=== PATIENT | female | born 1950 | race Caucasian/White ===

== ENCOUNTER → 2020-03-15 13:15 | Outpatient (BNVA) | payer MEDICARE, SELFPAY | PROVIDERS: PCP Internal Medicine Endocrinology, Diabetes & Metabolism; Visit Provider Urology | DX: N31.9 Neuromuscular dysfunction of bladder, unspecified (principal) | CPT/HCPCS: 81002; 99212 ==

== ENCOUNTER → 2020-11-02 10:04 | Outpatient (BNVA) | payer MEDICARE, SELFPAY | PROVIDERS: PCP Internal Medicine Endocrinology, Diabetes & Metabolism; Visit Provider Urology | DX: N30.10 Interstitial cystitis (chronic) without hematuria (principal); N39.0 Urinary tract infection, site not specified; N31.9 Neuromuscular dysfunction of bladder, unspecified | CPT/HCPCS: 51798; 99212 ==

== ENCOUNTER 2021-02-02 12:46 | Outpatient (REF) | payer MEDICARE, BC, SELFPAY | END 2021-02-02 12:47 | disposition home or self-care (01) | LOC: HO.LAB 12:46 | PROVIDERS: PCP Internal Medicine Endocrinology, Diabetes & Metabolism | DX: N30.10 Interstitial cystitis (chronic) without hematuria (principal) | CPT/HCPCS: 51700; 87086; 87088; 87186; 99212 ==

== ENCOUNTER → 2021-02-03 14:57 | Outpatient (BNVA) | payer MEDICARE, BC, SELFPAY | PROVIDERS: PCP Internal Medicine Endocrinology, Diabetes & Metabolism | DX: N30.10 Interstitial cystitis (chronic) without hematuria (principal) | CPT/HCPCS: 51700 ==

== ENCOUNTER → 2021-02-07 14:43 | Outpatient (BNVA) | payer MEDICARE, BC, SELFPAY | PROVIDERS: PCP Internal Medicine Endocrinology, Diabetes & Metabolism | DX: N30.10 Interstitial cystitis (chronic) without hematuria (principal) | CPT/HCPCS: 51700 ==

== ENCOUNTER → 2021-02-08 15:11 | Outpatient (BNVA) | payer MEDICARE, BC, SELFPAY | PROVIDERS: PCP Internal Medicine Endocrinology, Diabetes & Metabolism | DX: N30.10 Interstitial cystitis (chronic) without hematuria (principal) | CPT/HCPCS: 51700 ==

== ENCOUNTER 2021-02-09 14:57 | Outpatient (REF) | payer MEDICARE, BC, SELFPAY | END 2021-02-09 14:58 | disposition home or self-care (01) | LOC: HO.LNP 14:57 | PROVIDERS: PCP Internal Medicine Endocrinology, Diabetes & Metabolism | DX: N30.10 Interstitial cystitis (chronic) without hematuria (principal) | CPT/HCPCS: 51700; 87086; 87088; 87186 ==

== ENCOUNTER → 2021-02-15 11:44 | Outpatient (BNVA) | payer MEDICARE, BC, SELFPAY | PROVIDERS: PCP Internal Medicine Endocrinology, Diabetes & Metabolism; Visit Provider Urology | DX: N30.10 Interstitial cystitis (chronic) without hematuria (principal) | CPT/HCPCS: 51700 ==

== ENCOUNTER → 2021-02-22 11:33 | Outpatient (BNVA) | payer MEDICARE, BC, SELFPAY | PROVIDERS: PCP Internal Medicine Endocrinology, Diabetes & Metabolism; Visit Provider Urology | DX: N30.10 Interstitial cystitis (chronic) without hematuria (principal) | CPT/HCPCS: 51700 ==

== ENCOUNTER → 2021-03-01 11:17 | Outpatient (BNVA) | payer MEDICARE, BC, SELFPAY | PROVIDERS: Visit Provider Urology | DX: N30.10 Interstitial cystitis (chronic) without hematuria (principal) | CPT/HCPCS: 51700 ==

== ENCOUNTER 2021-03-04 09:52 | Outpatient (REF) | payer MEDICARE, BC, SELFPAY ==
[2021-03-04 10:59] LABS: Appearance Urine CLEAR; Color Urine COLORLESS; Glucose Urine UA NEG (NEG); Leukocyte Esterase Urine 1+ (NEG); Nitrite Urine NEG (NEG); Specific Gravity - Urine <= 1.005 (1.005-1.025); Urine Blood NEG (NEG); Urine Ketones NEG (NEG); Urine Protein NEG (NEG-TRACE)
[2021-03-04 11:26] LABS: RBC Urine 0 /HPF (0)
== END 2021-03-04 09:53 | disposition home or self-care (01) ==
LOC: HO.LAB 09:52
PROVIDERS: PCP Internal Medicine Endocrinology, Diabetes & Metabolism
DX: N39.0 Urinary tract infection, site not specified (principal)
CPT/HCPCS: 81001; 87086

== ENCOUNTER → 2021-03-08 11:49 | Outpatient (BNVA) | payer MEDICARE, BC, SELFPAY | PROVIDERS: PCP Internal Medicine Endocrinology, Diabetes & Metabolism; Visit Provider Urology | DX: N30.10 Interstitial cystitis (chronic) without hematuria (principal) | CPT/HCPCS: 51700 ==

== ENCOUNTER → 2021-03-15 11:32 | Outpatient (BNVA) | payer MEDICARE, BC, SELFPAY | PROVIDERS: PCP Internal Medicine Endocrinology, Diabetes & Metabolism; Visit Provider Urology | DX: N39.0 Urinary tract infection, site not specified (principal) | CPT/HCPCS: 51700 ==

== ENCOUNTER → 2021-06-20 11:37 | Outpatient (BNVA) | payer MEDICARE, BC, SELFPAY | PROVIDERS: PCP Internal Medicine Endocrinology, Diabetes & Metabolism; Visit Provider Urology | DX: Z13.89 Encounter for screening for other disorder (principal) | CPT/HCPCS: 99212 ==

== ENCOUNTER 2022-01-02 11:14 | Outpatient (AMB) | payer MEDICARE, BC, SELFPAY ==
--- NOTE | 2022-01-01 15:08 | MHC.OFFVIS ---
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 She is a patient of Dr Kay. She is seen for the following urologic conditions - recurring UTI - interstitial cystitis diagnosis with alpha 1 antitrypsin disease Background of lupus with chronic CellCept therapy Continues with topical estrogen, cranberry extract and methenamine with vitamin-C Would like to continue with low-dose Augmentin suppression Last UTI 01/24 Augmentin Urinary Tract Infection: They present for followup evaluation for, recurrent UTI's. The first infection began Ongoing for many years. Symptoms have included dyuria No urgency No frequency No urinary incontinence No fever No chills No nausea No vomiting No night sweats No hematuria No flank pain No Investigations - 02/23 Microgen - positive with UA negative Therapy has included symptomatic use of antibiotics Topical estrogen Cranberry capsules PFSH Medical History Complicated UTI (urinary tract infection) Lupus Urethral pain Surgical History History of surgery Review of Systems Const Denies chills and Denies fever(s) Card Reports no additional complaints and Denies syncope Resp Denies cough GI Denies abdominal pain and Denies heartburn Reports as per HPI and Denies change in libido Neuro Denies syncope Psych Denies change in libido Endo Denies change in libido Physical Exam Const General: cooperative, healthy appearing, comfortable and no acute distress Orientation/consciousness: patient oriented x3 HEENT Face and sinus: Yes normal facial exam Mouth: moist mucous membranes Neck Neck: Yes normal visual inspection, Yes full ROM and Yes trachea midline Chest Chest palpation & inspection: normal inspection of the chest Resp Effort & Inspection: normal respiratory effort, able to speak in complete sentences and no respiratory distress GI Inspection: Yes normal to inspection Back/Spine/Pelvis Cervical Spine: normal cervical lordosis Thoracic/Lumbar Spine: thoracic and lumbar spine normal to inspection Skin General skin exam: no rashes or lesions noted Neuro General: patient oriented x3, gait normal, tone normal and moves all extremities Extrem General: Yes normal to inspection and Yes capillary refill normal Results AMB Urinalysis, Automated UA Leukoctes 0 Chao/uL Last Edit by Jane Gallo [facility] on 01/02/22 11:50 UA Nitrite Negative Last Edit by Jane Gallo A on 01/02/22 11:50 UA Urobilinogen 0.2 mg/dL Last Edit by Jane Gallo A on 01/02/22 11:50 UA Protein 15 mg/dL Last Edit by Jane Gallo A on 01/02/22 11:50 UA pH 6.0 Last Edit by Jane Gallo [facility] on 01/02/22 11:50 UA Blood 0 Shaun/uL Last Edit by Jane Gallo [facility] on 01/02/22 11:50 UA Specific [place] 1.015 Last Edit by Jane Gallo [facility] on 01/02/22 11:50 UA Ketone Negative Last Edit by Jane Gallo [facility] on 01/02/22 11:50 UA Bilirubin 0 mg/dL Last Edit by Jane Gallo [facility] on 01/02/22 11:50 UA Glucose 0 mg/dL Last Edit by Jane Gallo [facility] on 01/02/22 11:50 Results Reviewed Results Reviewed: Laboratory Last Values Urine pH (Auto) 6.0 01/02/22 11:16 Specific [place] (Auto) 1.015 01/02/22 11:16 Urine Protein (Auto) 15 mg/dL 01/02/22 11:16 Glucose (UA)(Auto) 0 mg/dL 01/02/22 11:16 Urine Ketones (Auto) Negative 01/02/22 11:16 Urine Blood (Auto) 0 Shaun/uL 01/02/22 11:16 Urine Nitrite (Auto) Negative 01/02/22 11:16 Urine Bilirubin (Auto) 0 mg/dL 01/02/22 11:16 Urine Urobilinogen (Auto) 0.2 mg/dL 01/02/22 11:16 Leukocyte Esterase (Auto) 0 Chao/uL 01/02/22 11:16 Assessment & Plan Assessment & Plan (1) Interstitial cystitis: Code(s): N30.10 - Interstitial cystitis (chronic) without hematuria (2) Recurrent UTI (urinary tract infection): Code(s): N39.0 - Urinary tract infection, site not specified (3) Neurogenic urinary bladder disorder: Code(s): N31.9 - Neuromuscular dysfunction of bladder, unspecified Plan antifungal Orders: Orders AMB Urinalysis Automated 01/02/22 Z13.9 - Encounter for screening, unspecified Medications: New fluconazole 150 mg PO Q3D 2 tabs 0RF 2 doses N39.0 - Urinary tract infection, site not specified, B49 - Unspecified mycosis Refilled amoxicillin-pot clavulanate 500-125 mg (Augmentin) 1 tab PO DAILY 90 tabs 1RF 90 days Patient Instructions: Imaging studies, laboratory and physical exam results were discussed and reviewed in detail. No major barriers to patient understanding were identified. An opportunity to ask questions regarding the treatment plan was provided. All questions were answered. The patient expressed understanding and agreement with the above treatment plan. The patient is aware they should contact our office by phone for worsening of their current condition or the appearance of new urologic symptoms. Compliance is encouraged with any medications and followup testing that is ordered. It is a privilege to participate in the urologic care of your patient. If you have any questions or concerns regarding treatment for the above conditions, or other urologic issues, please do not hesitate to contact me. The office telephone contact is [phone]. This note is constructed using voice recognition software. While every effort has been made to ensure accuracy uniform maker errors may have been included. Yours sincerely, Dr Denilson Hernandez MD, [facility] - Urology Providers of Expert, Compassionate Care for the Genitourinary System Coding Level of Care Code Est Pt Level 3 (29921) Diagnoses Interstitial cystitis N30.10 Recurrent UTI (urinary tract infection) N39.0 Neurogenic urinary bladder disorder N31.9
== END 2022-01-02 12:02 | disposition home or self-care (01) ==
LOC: HO.HUSH 11:14
PROVIDERS: PCP Internal Medicine Endocrinology, Diabetes & Metabolism; Visit Provider Urology
DX: N30.10 Interstitial cystitis (chronic) without hematuria (principal); N39.0 Urinary tract infection, site not specified; N31.9 Neuromuscular dysfunction of bladder, unspecified
CPT/HCPCS: 99499

== ENCOUNTER → 2022-10-02 15:11 | Outpatient (BNVA) | payer MEDICARE, BC, SELFPAY | PROVIDERS: PCP Internal Medicine Endocrinology, Diabetes & Metabolism; Visit Provider Urology | DX: N30.10 Interstitial cystitis (chronic) without hematuria (principal); N31.9 Neuromuscular dysfunction of bladder, unspecified | CPT/HCPCS: 99212 ==

== ENCOUNTER 2023-08-06 08:51 | Outpatient (AMB) | payer MEDICARE, BC, SELFPAY ==
--- NOTE | 2023-08-06 09:02 | A.OFFVIS_ITS ---
Intake Intake Visit Reasons: PVR/UA Follow Up(Last appt R/S) Intake Note: Patient is Present for Follow Up Urology Medication: Methanamine, Terazosin, Vagifem Antibiotic Allergies: Macrobid, Levaquin, Keflex Blood Thinners: Xarelto (Pt states she is not taking Aspirin) Pharmacy: [facility] PVR: 0 Allergies carisoprodol [Soma] Allergy (Unknown, Verified 08/06/23 09:03) unk cephalexin [Keflex] Allergy (Unknown, Verified 08/06/23 09:03) Unknown levofloxacin [Levaquin] Allergy (Unknown, Verified 08/06/23 09:03) Unknown nitrofurantoin [Macrobid] Allergy (Unknown, Verified 08/06/23 09:03) Unknown Ansaid Allergy (Unknown, Uncoded 08/06/23 09:03) Unknown HPI HPI Comments History of Present Illness Details Shakila is a very pleasant female. She is a patient of Dr Kay. She is seen for the following urologic conditions - recurring UTI - interstitial cystitis PVR today 0 UA clean Diagnosis with alpha 1 antitrypsin disease Background of lupus with chronic CellCept therapy Continues with - topical estrogen - cranberry extract - methenamine with vitamin-C - low-dose Augmentin suppression Shakila remains stable. Knows her interstitial cystitis triggers. Immunology has working to reduce her CellCept immunosuppression. Refill medications Six-month follow-up PVR Incomplete bladder emptying Current medication terazosin 1 mg Urinary Tract Infection: In setting of immunosuppression They present for followup evaluation for, recurrent UTI's. The first infection began Ongoing for many years. Investigations - 02/23 Microgen - positive with UA negative Therapy has included symptomatic use of antibiotics - Topical estrogen - Cranberry capsules - vitamin-C with methenamine [facility] Medical History Lupus Complicated UTI (urinary tract infection) Urethral pain Surgical History History of surgery Review of Systems Const Denies chills and Denies fever(s) Card Reports no additional complaints and Denies syncope Resp Denies cough GI Denies abdominal pain and Denies heartburn Reports as per HPI and Denies change in libido Neuro Denies syncope Psych Denies change in libido Endo Denies change in libido Physical Exam Const General: cooperative, healthy appearing, comfortable and no acute distress Orientation/consciousness: patient oriented x3 HEENT Face and sinus: Yes normal facial exam Mouth: moist mucous membranes Neck Neck: Yes normal visual inspection, Yes full ROM and Yes trachea midline Chest Chest palpation & inspection: normal inspection of the chest Resp Effort & Inspection: normal respiratory effort, able to speak in complete sentences and no respiratory distress GI Inspection: Yes normal to inspection Back/Spine/Pelvis Cervical Spine: normal cervical lordosis Thoracic/Lumbar Spine: thoracic and lumbar spine normal to inspection Skin General skin exam: no rashes or lesions noted Neuro General: patient oriented x3, gait normal, tone normal and moves all extremities Extrem General: Yes normal to inspection and Yes capillary refill normal Office Procedures Post Void Residual Post Residual Void Post Void Residual (PVR): 0 07988-Yocq Void Residual by ultrasound Results AMB Urinalysis, Automated UA Leukoctes 15 Chao/uL Last Edit by REA Noel on 08/06/23 09:09 UA Nitrite Negative Last Edit by REA Noel on 08/06/23 09:09 UA Urobilinogen 0.2 mg/dL Last Edit by REA Noel on 08/06/23 09:0 9 UA Protein 0 mg/dL Last Edit by REA Noel on 08/06/23 09:09 UA pH 6.0 Last Edit by REA Noel on 08/06/23 09:09 UA Blood 0 Shaun/uL Last Edit by REA Noel on 08/06/23 09:09 UA Specific [place] 1.005 Last Edit by REA Noel on 08/06/23 09: 09 UA Ketone Negative Last Edit by REA Noel on 08/06/23 09:09 UA Bilirubin 0 mg/dL Last Edit by REA Noel on 08/06/23 09:09 UA Glucose 0 mg/dL Last Edit by REA Noel on 08/06/23 09:09 Assessment & Plan Assessment & Plan (1) Interstitial cystitis: Code(s): N30.10 - Interstitial cystitis (chronic) without hematuria (2) Recurrent UTI (urinary tract infection): Code(s): N39.0 - Urinary tract infection, site not specified (3) Neurogenic urinary bladder disorder: Code(s): N31.9 - Neuromuscular dysfunction of bladder, unspecified Plan Six-month follow-up Orders: Orders AMB Urinalysis Automated Today N39.0 - Urinary tract infection, site not specified, Z13.9 - Encounter for screening, unspecified AMB Post Void Residual by ultrasound Today N31.9 - Neuromuscular dysfunction of bladder, unspecified Medications: Changed From amoxicillin-pot clavulanate 500-125 mg (Augmentin) 1 tab PO DAILY 60 days 60 tabs 0RF N39.0 - Urinary tract infection, site not specified To amoxicillin-pot clavulanate 500-125 mg (Augmentin) 1 tab PO DAILY 90 tabs 1RF 90 days N39.0 - Urinary tract infection, site not specified Refilled conjugated estrogens (Premarin) pea size amount to urethra 3 times a week 30 grams 1RF methenamine hippurate 1 g PO BID 180 tabs 3RF 90 days terazosin 1 mg PO BEDTIME 90 caps 1RF 90 days N31.9 - Neuromuscular dysfunction of bladder, unspecified ascorbic acid (vitamin C) 1 g PO DAILY 90 tabs 1RF 90 days N39.0 - Urinary tract infection, site not specified Discontinued estradiol 0.01%(0.1mg/gram) (Estrace) Discontinued Reason: Patient Completed Course pea sized amount to urethra vaginal daily 42.5 grams 0RF recurrent uti 30 days estradiol (Vagifem) Discontinued Reason: Insurance Denied 10 mcg vaginal 2XW 8 tabs 5RF 28 days N39.0 - Urinary tract infection, site not specified Patient Instructions: Imaging studies, laboratory and physical exam results were discussed and reviewed in detail. No major barriers to patient understanding were identified. An opportunity to ask questions regarding the treatment plan was provided. All questions were answered. The patient expressed understanding and agreement with the above treatment plan. The patient is aware they should contact our office by phone for worsening of their current condition or the appearance of new urologic symptoms. Compliance is encouraged with any medications and followup testing that is ordered. It is a privilege to participate in the urologic care of your patient. If you have any questions or concerns regarding treatment for the above conditions, or other urologic issues, please do not hesitate to contact me. The office telephone contact is [phone]. This note is constructed using voice recognition software. While every effort has been made to ensure accuracy utilization review coordinator errors may have been included. Yours sincerely, Dr Denilson Hernandez MD, [facility] - Urology Providers of Expert, Compassionate Care for the Genitourinary System Coding Level of Care Code Est Pt Level 4 (12487) Diagnoses Interstitial cystitis N30.10 Recurrent UTI (urinary tract infection) N39.0 Neurogenic urinary bladder disorder N31.9 CPT Codes Post Residual Void - PVR CPT Code: 82433-Axin Void Residual by ultrasound ([id number])
== END 2023-08-06 09:22 | disposition home or self-care (01) ==
PROVIDERS: PCP Internal Medicine Endocrinology, Diabetes & Metabolism; Visit Provider Urology
DX: N30.10 Interstitial cystitis (chronic) without hematuria (principal); N39.0 Urinary tract infection, site not specified; N31.9 Neuromuscular dysfunction of bladder, unspecified; Z13.9 Encounter for screening, unspecified
CPT/HCPCS: 99213

== ENCOUNTER → 2023-08-06 08:51 | Outpatient (BNVA) | payer MEDICARE, BC, SELFPAY | PROVIDERS: PCP Internal Medicine Endocrinology, Diabetes & Metabolism; Visit Provider Urology | DX: N30.10 Interstitial cystitis (chronic) without hematuria (principal); N39.0 Urinary tract infection, site not specified; N31.9 Neuromuscular dysfunction of bladder, unspecified | CPT/HCPCS: 51798; 81003; 99212 ==

== ENCOUNTER 2024-02-04 11:22 | Outpatient (AMB) | payer MEDICARE, OTHER, SELFPAY ==
--- NOTE | 2024-02-04 11:26 | A.OFFVIS_ITS ---
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 She is a patient of Dr Lorenzo Bingham. She is seen for the following urologic conditions - recurring UTI - interstitial cystitis PVR today 0 UA clean Surprisingly stable on current combination Hesitant to stop low-dose Augmentin Diagnosis with alpha 1 antitrypsin disease Background of lupus with chronic CellCept therapy Continues with - topical estrogen - cranberry extract - methenamine with vitamin-C - low-dose Augmentin suppression Shakila remains stable. Knows her interstitial cystitis triggers. Immunology has working to reduce her CellCept immunosuppression. Refill medications Six-month follow-up PVR Incomplete bladder emptying Current medication terazosin 1 mg Urinary Tract Infection: In setting of immunosuppression They present for followup evaluation for, recurrent UTI's. The first infection began Ongoing for many years. Investigations - 02/23 Microgen - positive with UA negative Therapy has included symptomatic use of antibiotics - Topical estrogen - Cranberry capsules - vitamin-C with methenamine PFSH Medical History Lupus Complicated UTI (urinary tract infection) Urethral pain Surgical History History of surgery Review of Systems Const Denies chills and Denies fever(s) Card Reports no additional complaints and Denies syncope Resp Denies cough GI Denies abdominal pain and Denies heartburn Reports as per HPI and Denies change in libido Neuro Denies syncope Psych Denies change in libido Endo Denies change in libido Physical Exam Const General: cooperative, healthy appearing, comfortable and no acute distress Orientation/consciousness: patient oriented x3 HEENT Face and sinus: Yes normal facial exam Mouth: moist mucous membranes Neck Neck: Yes normal visual inspection, Yes full ROM and Yes trachea midline Chest Chest palpation & inspection: normal inspection of the chest Resp Effort & Inspection: normal respiratory effort, able to speak in complete sentences and no respiratory distress GI Inspection: Yes normal to inspection Back/Spine/Pelvis Cervical Spine: normal cervical lordosis Thoracic/Lumbar Spine: thoracic and lumbar spine normal to inspection Skin General skin exam: no rashes or lesions noted Neuro General: patient oriented x3, gait normal, tone normal and moves all extremities Extrem General: Yes normal to inspection and Yes capillary refill normal Office Procedures Post Void Residual Post Residual Void Post Void Residual (PVR): 23 [id number]-Ytlc Void Residual by ultrasound Results AMB Urinalysis, Automated UA Leukoctes 0 Chao/uL Last Edit by REA Noel on 02/04/24 11:41 UA Nitrite Negative Last Edit by REA Noel on 02/04/24 11:41 UA Urobilinogen 0.2 mg/dL Last Edit by REA Noel on 02/04/24 11:4 1 UA Protein 0 mg/dL Last Edit by REA Noel on 02/04/24 11:41 UA pH 6.0 Last Edit by REA Noel on 02/04/24 11:41 UA Blood 0 Shaun/uL Last Edit by REA Noel on 02/04/24 11:41 UA Specific [place] 1.005 Last Edit by REA Noel on 02/04/24 11: 41 UA Ketone Negative Last Edit by REA Noel on 02/04/24 11:41 UA Bilirubin 0 mg/dL Last Edit by REA Noel on 02/04/24 11:41 UA Glucose 0 mg/dL Last Edit by REA Noel on 02/04/24 11:41 Results Reviewed Results Reviewed: Laboratory Last Values Urine pH (Auto) 6.0 02/04/24 11:34 Specific [place] (Auto) 1.005 02/04/24 11:34 Urine Protein (Auto) 0 mg/dL 02/04/24 11:34 Glucose (UA)(Auto) 0 mg/dL 02/04/24 11:34 Urine Ketones (Auto) Negative 02/04/24 11:34 Urine Blood (Auto) 0 Shaun/uL 02/04/24 11:34 Urine Nitrite (Auto) Negative 02/04/24 11:34 Urine Bilirubin (Auto) 0 mg/dL 02/04/24 11:34 Urine Urobilinogen (Auto) 0.2 mg/dL 02/04/24 11:34 Leukocyte Esterase (Auto) 0 Chao/uL 02/04/24 11:34 Assessment & Plan Assessment & Plan (1) Interstitial cystitis: Code(s): N30.10 - Interstitial cystitis (chronic) without hematuria Category: Medical (2) Recurrent UTI (urinary tract infection): Code(s): N39.0 - Urinary tract infection, site not specified Category: Medical Plan Six-month follow-up Orders: Orders AMB Post Void Residual by ultrasound Today N31.9 - Neuromuscular dysfunction of bladder, unspecified AMB Urinalysis Automated Today Z13.9 - Encounter for screening, unspecified Medications: Discontinued sulfamethoxazole-trimethoprim 800-160 mg (Bactrim DS) Discontinued Reason: Patient Completed Course 1 tab PO BID 5 days 10 tabs 0RF amoxicillin-pot clavulanate 875-125 mg (Augmentin) Discontinued Reason: Duplicate 1 tab PO BID 14 days 28 tabs 0RF uti N39.0 - Urinary tract infection, site not specified Patient Instructions: Imaging studies, laboratory and physical exam results were discussed and r eviewed in detail. No major barriers to patient understanding were identified. An opportunity to ask questions regarding the treatment plan was provided. All questions were answered. The patient expressed understanding and agreement with the above treatment plan. The patient is aware they should contact our office by phone for worsening of their current condition or the appearance of new urologic symptoms. Compliance is encouraged with any medications and followup testing that is ordered. It is a privilege to participate in the urologic care of your patient. If you have any questions or concerns regarding treatment for the above conditions, or other urologic issues, please do not hesitate to contact me. The office telephone contact is [phone]. This note is constructed using voice recognition software. While every effort has been made to ensure accuracy transition advisor errors may have been included. Yours sincerely, Dr Denilson Hernandez MD, [facility] - Urology Providers of Expert, Compassionate Care for the Genitourinary System Coding Level of Care Code Est Pt Level 3 (35609) Diagnoses Interstitial cystitis N30.10 Recurrent UTI (urinary tract infection) N39.0 CPT Codes Post Residual Void - PVR CPT Code: 47015-Lqeu Void Residual by ultrasound ([id number])
== END 2024-02-04 12:03 | disposition home or self-care (01) ==
PROVIDERS: PCP Internal Medicine Endocrinology, Diabetes & Metabolism; Visit Provider Urology
DX: N30.10 Interstitial cystitis (chronic) without hematuria (principal); N39.0 Urinary tract infection, site not specified; Z13.9 Encounter for screening, unspecified
CPT/HCPCS: 99213

== ENCOUNTER → 2024-02-04 11:22 | Outpatient (BNVA) | payer MEDICARE, OTHER, SELFPAY | PROVIDERS: PCP Internal Medicine Endocrinology, Diabetes & Metabolism; Visit Provider Urology | DX: N30.10 Interstitial cystitis (chronic) without hematuria (principal) | CPT/HCPCS: 51798; 81003; 99212 ==

== ENCOUNTER 2024-08-04 11:12 | Outpatient (AMB) | payer OTHER, SELFPAY ==
--- NOTE | 2024-08-04 11:17 | A.OFFVIS_ITS ---
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 She is a patient of Dr Lorenzo Bingham. She is seen for the following urologic conditions - recurring UTI - interstitial cystitis PVR today 0 UA clean Surprisingly stable on current combination Hesitant to stop low-dose Augmentin Diagnosis with alpha 1 antitrypsin disease Background of lupus with chronic CellCept therapy Continues with - topical estrogen - cranberry extract - methenamine with vitamin-C - low-dose Augmentin suppression Shakila remains stable. Knows her interstitial cystitis triggers. Immunology has working to reduce her CellCept immunosuppression. Refill medications Six-month follow-up PVR Incomplete bladder emptying Current medication terazosin 1 mg Urinary Tract Infection: In setting of immunosuppression They present for followup evaluation for, recurrent UTI's. The first infection began Ongoing for many years. Investigations - 02/23 Microgen - positive with UA negative Therapy has included symptomatic use of antibiotics - Topical estrogen - Cranberry capsules - vitamin-C with methenamine [facility] Medical History Lupus Complicated UTI (urinary tract infection) Urethral pain Surgical History History of surgery Office Procedures Post Void Residual Post Residual Void Post Void Residual (PVR): 0 02274-Zinc Void Residual by ultrasound Coding CPT Codes Post Residual Void - PVR CPT Code: 40894-Hvrf Void Residual by ultrasound ([id number])
--- OUTSIDE RECORDS SUMMARY | 2024-08-04 13:30 | XMS_ITS | Clinical Summary ---
Author Organization [facility] Address [address] [place] [address] Care Team Providers Care Trust Accounts Supervisor Name Role Phone Mariel Yepez MD Primary Care Provid er Allergies Active Allergy Reactions Criticality Noted Date Comments Adhesives/Tape Unknown/Patient and Family Unable to Define Medium 02/14/2023 Aloe Unknown/Patient and Family Unable to Define Medium 02/14/2023 Benralizumab Unknown/Patient and Family Unable to Define Medium 02/14/2023 Carisoprodol Unknown/Patient and Family Unable to Define Medium 02/14/2023 Levofloxacin Unknown/Patient and Family Unable to Define Medium 02/14/2023 Nitrofurantoin Macrocrystal Unknown/Maureen ent and Family Unable to Define Medium 02/14/2023 Nsaids Unknown/Patient and Family Unable to Define Medium 02/14/2023 Tobramycin Unknown/Patient and Family Unable to Define Medium 02/14/2023 Medications Medication Sig Dispensed Refills Start Date End Date Status fluticasone-umeclidi nium-vilanterol (TRELEGY ELLIPTA) 200-62.5-25 mcg/act inhaler Inhale 1 puff daily. Acti ve dupilumab (DUPIXENT) 300 MG/2ML prefilled syringe Inject 300 mg under the skin every 14 days (2 weeks). Active amoxicillin-clavulan ate (AUGMENTIN) 500-125 MG per tablet Take 1 tablet by mouth daily at the same time. Active ascorbic acid (VITAMIN C) 500 MG tablet Take 500 mg by mouth daily. Active mycophenolate (CELLCEPT) 500 MG tablet Take 1,000 mg by mouth daily. Active lactobacillus (FLORANEX) tablet Take 1 tablet by mouth daily. Active mycophenolate (CELLCEPT) 500 MG tablet Take 500 mg by mouth nightly. Active sodium chloride (Maldonado 128) 5 % ophthalmic ointment Administer 1 drop to both eyes 2 times a day. Active gabapentin (NEURONTIN) 300 MG capsule Take 600 mg by mouth daily. Active ferrous sulfate 325 (65 FE) MG tablet Take 325 mg by mouth daily. Active diltiazem (CARDIZEM CD) 240 MG 24 hr capsule Take 240 mg by mouth daily. Active Psyllium Husk 100 % Powder Take 3 g by mouth 2 times a day. Active aspirin enteric coated (ECOTRIN LOW STRENGTH) 81 MG EC tablet Take 81 mg by mouth daily. Active gabapentin (NEURONTIN) 300 MG capsule Take 300 mg by mouth daily. Active rivaroxaban (XARELTO) 20 MG tablet Take 20 mg by mouth every evening with dinner. Active OMEprazole (PriLOSEC) 20 MG capsule Take 20 mg by mouth every morning before breakfast. Active levothyroxine (Synthroid) 175 MCG tablet Take 175 mcg by mouth daily on an empty stomach. Active metoCLOPRAMIDE (REGLAN) 10 MG tablet Take 10 mg by mouth 4 (four) times a day before meals and nightly. Active pancrelipase (CREON) [address] Particles capsule Take 36,000 units of lipase by mouth 3 (three) times a day with meals. Active acetaminophen (TYLENOL) 500 MG tablet Take 1,000 mg by mouth 4 times daily (every 6 hours) as needed. Active montelukast (SINGULAIR) 10 MG tablet Take 10 mg by mouth nightly. Active senna (SENOKOT) 8.6 MG Tab tablet Take 2 tablets by mouth 2 (two) times a day. Active methenamine hippurate (HIPREX) 1 g tablet Take 1 g by mouth 2 (two) times a day with meals. Active terazosin (HYTRIN) 1 MG capsule Take 1 mg by mouth nightly. Active amitriptyline (ELAVIL) 10 MG tablet Take 40 mg by mouth nightly. Active simvastatin (ZOCOR) 10 MG tablet Take 10 mg by mouth nightly. Active oxyCODONE (ROXICODONE) 10 mg immediate release tablet Take 10 mg by mouth every 4 (four) hours as needed. Active diclofenac (VOLTAREN) 1 % gel Apply 2 g topically 4 (four) times a day. Active albuterol (Proventil HFA) 108 (90 Base) MCG/ACT inhaler Inhale 2 puffs every 4 (four) hours as needed. Active Social History Tobacco Use Types Packs/Day Years Used Date Smoking Tobacco: Never Assessed OASIS D0700: Social Isolation Answer Da te Recorded Frequency of experiencing loneliness or isolatio n Never 03/22/2023 OASIS A1250: Transportation Answer Date Recorded Lack of Transportation (Medical) No 03/22/2023 Lack of Transportation (Non-Medical) No 03/22/2023 Patient Unable or Declines to Respond No 03/22/2023 Sex and Gender Information Value Date Recorded Sex Assigned at Not on file Gender Identity Not on file Sexual Orientation Not on file Last Filed Vital Signs Vital Sign Reading Time Taken Comments Blood Pressure 122/70 03/20/2023 10:42 AM EST Pulse 66 03/20/2023 10:42 AM EST Temperature 36.9 ??C (98.4 ??F) 03/20/2023 10:[address] Respiratory Rate 18 03/20/2023 10:42 AM EST Oxygen Saturation 97% 03/20/2023 10:42 AM EST Inhaled Oxygen Concentration - - Weight - - Height - - Body Mass Index - - Plan of Treatment Health Maintenance Due Date Last Done Comments Hepatitis C Virus Screening 1949 COVID-19 Vaccine (#1) 1954 DTaP/Tdap/Td Vaccines (1 - Tdap) 1968 Pneumococcal Vaccines 50+ (1 of 2 - PCV) 1968 Zoster (Shingles) Vaccine (1 of 2) 1968 Mammogram 1989 Colonoscopy 1994 DXA Bone Density (Females,Ages 65 and older) 2014 Influenza Vaccine 12/05/2023 01/13/2020, 02/04/2017, 02/18/2014 RSV Vaccine 60 years and older and Patients (1 - 1-dose 75+ series) 2024 Hepatitis B Vaccines Aged Out No long er eligible based on patient's age to complete this topic Care Teams Trust Accounts Supervisor Relationship Specialty Start Date End Date Mariel Yepez MD [address] [place] [address] [place] [address] PCP - General Endocrinology 02/12/23
--- OUTSIDE RECORDS SUMMARY | 2024-08-04 13:30 | XMS_ITS | Clinical Summary ---
Author Organization [address] [facility] Address [address] [place] [address] Phone Care Team Providers Care Electro Winning Operator Name Role Phone Mariel Mcgarry MD Primary Care Provid er Medications metoclopramide (REGLAN) 10 mg tabletIndications :GERD (gastroesophageal reflux disease) Take 1 tablet (10 mg total) by mouth 4 (four) times a day. Take with meals and at bedtime 120 each 11 4 03/27/20 25 Active docusate sodium (COLACE) 100 mg capsuleIndication s:Constipation, unspecified constipation type TAKE 2 CAPSULES BY MOUTH DAILY 60 capsule 3 5 Active Social History Tobacco Use Types Packs/Day Years Used Date Smoking Tobacco: Never Assessed Comments Unknown Sex and Gender Information Value Date Recorded Sex Assigned at Not on file Legal Sex Female 1:18 AM EST Gender Identity Not on file Sexual Orientation Not on file Plan of Treatment Upcoming Encounters Date Type Department Care Team ([facility] Contact Info) Description 09/01/2024 9:00 AM EDT Office Visit Gastroenterology - [address] [place] [phone] Aaron Lizama MD [address] [address] Health Maintenance Due Date Last Done Comments DTaP,Tdap,and Td Vaccines (1 - Tdap) 1968 Pneumococcal Vaccine: 50+ Ye ars (1 of 1 - PCV) 1999 Zoster Vaccines (1 of 2) 1999 Colorectal Cancer Screening: Colonoscopy 04/08/2022 Depression Screening 04/08/2022 Falls Risk Assessment 04/08/2022 Hepatitis C Screening 04/08/2022 Medicare Annual Wellness Visit 04/08/2022 Osteoporosis Screening (Bone Density Screening) 04/08/2022 Social Influencers of Health Screening 04/08/2022 COVID-19 Vaccine ( - 2023-2 5 season) 2024 Influenza Vaccine (#1) 2024 RSV Immunization Patients 60 + Years Old (1 - 1-dose 75+ series) 2024 HIB Vaccines Aged Out No longer eligi ble based on patient's age to complete this topic HPV Vaccines Aged Out No longer eligi ble based on patient's age to complete this topic Hepatitis A Vaccines Aged Out No long er eligible based on patient's age to complete this topic Hepatitis B Vaccines Aged Out No long er eligible based on patient's age to complete this topic IPV Vaccines Aged Out No longer eligi ble based on patient's age to complete this topic MMR Vaccines Aged Out No longer eligi ble based on patient's age to complete this topic Meningococcal ACWY Vaccine Aged Out N o longer eligible based on patient's age to complete this topic Meningococcal B Vacine Aged Out No lo nger eligible based on patient's age to complete this topic RSV Immunization Patients Un konrad 20 months Aged Out No longer eligible b ased on patient's age to complete this topic Varicella Vaccines Aged Out No longer eligible based on patient's age to complete [place] [id number] Care Teams Electro Winning Operator Relationship Specialty Start Date End Date Mariel Mcgarry MD [address] [place] [address] [address] [place] [address] PCP - General Endocrinology 07/30/24
--- OUTSIDE RECORDS SUMMARY | 2024-08-04 13:31 | XMS_ITS | Continuity of Care Document ---
Author Organization [facility] [address] [place] [address] Phone [phone] Care Team Providers Care Delivery Associate Name Role Phone Mariel Mcgarry M.D. Care Team Informati on Storage Battery Inspector [phone] Problems Active Problems Provider Date Primary hypothyroidism Mariel leo M.D. Onset: 06/01/2022 Asthma Mariel shultz M.D. Onset: 06/01/2022 History of deep vein thrombosis Mariel Mcgarry M.D. Onset: 06/01/2022 Degeneration of lumbar inter vertebral disc Mariel Mcgarry M.D. Onset: 06/01/2022 Dyslipidemia Mariel shultz M.D. Onset: 06/01/2022 Essential hypertension Mariel leo M.D. Onset: 06/01/2022 Multiple nodules of lung Mariel Sargent M.D. Onset: 06/01/2022 Migraine Mariel shultz M.D. Onset: 06/01/2022 Osteoarthritis Mariel shultz M.D. Onset: 06/01/2022 Neurocognitive disorder Mariel Bingham M.D. Onset: 06/01/2022 Fibromyalgia Mariel shultz M.D. Onset: 06/01/2022 Lxgui-5-fsyqxecvycp deficiency Mariel Mcgarry M.D. Onset: 06/01/2022 Type 2 diabetes mellitus Mariel Sargent M.D. Onset: 06/01/2022 Systemic lupus erythematosus Mariel Vasquez M.D. Onset: 06/01/2022 Cutaneous leukocytoclastic angiitis Valentina Mcgarry M.D. Onset: 06/01/2022 Recurrent urinary tract infection Leonor Mcgarry M.D. Onset: 06/01/2022 Pancreatic insufficiency Mariel Sargent M.D. Onset: 06/01/2022 Gastroesophageal reflux disease Mariel Mcgarry M.D. Onset: 06/01/2022 Obstructive sleep apnea syndrome Vinnie Mcgarry M.D. Onset: 06/01/2022 Gastroparesis syndrome Mariel leo M.D. 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 Onset: 06/01/2022 Immunoglobulin G subclass deficiency Astrid Mcgarry M.D. Onset: 06/01/2022 Paroxysmal atrial fibrillation Mariel Mcgarry M.D. Onset: 06/01/2022 Pure hypercholesterolemia Mariel Potter M.D. Onset: 06/01/2022 Migraine without aura, not refractory Ki flynn Mcgarry M.D. Onset: 06/01/2022 Chronic interstitial cystitis Mariel Garcia M.D. 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 ETOH Use Consumes 2 glasses of wine p er week Tobacco Use Start: Unknown Patient has never smoked Smoking Status Reviewed: 03/06/24 Patient has never sm oked Allergies and adverse reactions Active Allergies Criticality Reaction Severity Comments Date Fasenra Unable to assess criticality 06/01/2022 Levaquin Unable to assess criticality 06/01/2022 Tobramycin Unable to assess criticality 06/01/2022 Keflex Unable to assess criticality 06/01/2022 Macrobid Unable to assess criticality 06/01/2022 Carisoprodol Unable to assess criticality 06/01/2022 NSAIDS Unable to assess criticality 06/01/2022 Medications Active Medications SIG Qnty Indications Order ing Provider Date Levothyroxine Sfyvzm101pus Tablets Take 1 Tablet By Mouth Every Day Except Take 2 Tablets On Sundays 102tabs Mariel Mcgarry M.D. 08/16/2023 Diltiazem HCL QL656oa Caps ER 24HR Take 1 Capsule By Mouth Daily Mariel Mcgarry M.D. 09/12/2022 Citracal Calcium +D3 Ruoeqdgzjuy009-15-907pp -mg-Unit Tablets ER 24HR 1 by mouth twice a day Mariel Mcgarry M.D. Pantoprazole Xkisdz49gq Tablets 1 by mouth every day Unknown Joicaft48ks Tablets 1 by mouth every day Mariel Mcgarry M.D. Multivitamin Adults 50+Adlt 50+ Tablets 1 by mouth every day Mariel Mcgarry M.D. Fish Yma9660wd Capsules 1 by mouth twice a day Mariel Mcgarry M.D. Vitamin C500mg Chewtabs 1 by mouth twice a day Mariel Mcgarry M.D. Gyypwdee134ot/2ML Solution Pen-Inject every 2 weeks Mariel Mcgarry M.D. Aspirin Ec Low Esww13cv Tablets 1 by mouth every day Mariel Mcgarry M.D. Glucosamine Chondroitin 1500 Laletqv3791Kmn Capsules 1 by mouth twice a day Mariel Mcgarry M.D. L-Ujdnwq327er Capsules 1 bid Ki flynn Mcgarry M.D. Pghljnvln303dw Tablets 1 by mouth once a day Mariel Mcgarry M.D. Vitamin I691jlj (1000 Ut) Capsules 2 by mouth every day 100caps Mariel Mcgarry M.D. ProbioticTablets 1 by mouth every day Mariel Mcgarry M.D. Amoxicillin/Clavulanate Pjpbafkzb177-600bh Tablets Take 1 Tablet By Mouth Daily Denilson Hernandez Mycophenolate Kygzgen320dh Tablets Take 2 Tablets By Mouth Twice Daily Unknown [id number] Caps DR Yoselyn Take 1 Capsule By Mouth Four Times Daily With Meals And Snacks Aaron Lizama MD Terazosin HCL1mg Capsules Take 1 Capsule By Mouth AT Bedtime Denilson Hernandez Fltvyusrcrm49mi Tablets take 1 tablet by mouth every day as directed 90tabs Mariel Mcgarry M.D. Montelukast Swhobe21aq Tablets 1 qd Unknown Ddcheeouij913lj Capsules Take 1 in the morning, 2 at night Unknown Amitriptyline LOU17jh Tablets Take 4 tablets daily Unknown Methenamine Qxhfhvouq2uh Tablets Take 1 Tablet By Mouth Twice Daily Denilson Hernandez Trelegy Jxdilfk381-49.5-25mcg/A ct Aerosol 1 puff qd Ignacio Magaña DO Metoclopramide KAR25iy Tablets Take 1 tablet at mealtimes and at bedtime Aaron Lizama MD Vital Signs Date Vital Result Comment 07/09/2024 2:35pm BP Systolic 122 mmHg BP Diastolic 68 mmHg Heart Rate 98 /min Height 65 inches 5'5 Weight 187.25 lb BMI (Body Mass Index) 31.2 kg/m2 Results Test Acquired Date Facility Test Result H/L Range Note TSH Rfx on Abnormal to Free T4 07/09/2024 [facility] TSH Rfx on Abnormal to Free T4 1.210 uIU/mL 0.450-4. 500 Written Authorization 07/09/2024 [facility] Written Authorization See Comment: 1 Alkaline Phosphatase Isoenzymes 07/09/2024 [facility] Alkaline Phosphatase 206 IU/L High 44-121 Liver Fraction: 64 % 18-85 Bone Fraction: 22 % 14-68 Intestinal Frac.: 14 % 0-18 Alkaline Phosphatase Isoenzymes 07/09/2024 [facility] Alkaline Phosphatase 206 IU/L High 44-121 Liver Fraction: 64 % 18-85 Bone Fraction: 22 % 14-68 Intestinal Frac.: 14 % 0-18 Written Authorization 07/09/2024 [facility] Written Authorization See Comment: 2 Glucose Fingerstick 07/09/2024 Inhouse Glucose Fingerstick 112 Hemoglobin A1c 07/09/2024 Inhouse Hemoglobin A1c 5.6 Comp. Metabolic Panel (14) 07/09/2024 [facility] Glucose 92 mg/dL 70-99 BUN 12 mg/dL 8-27 Creatinine 0.54 mg/dL Low 0.57-1.0 0 eGFR 96 mL/min/1. 73 >59 BUN/Creatinine Ratio 22 12-28 Sodium 137 mmol/L 134-144 Potassium 4.6 mmol/L 3.5-5.2 Chloride 101 mmol/L 96-106 Carbon Dioxide, Total 22 mmol/L 20-29 Calcium 9.5 mg/dL 8.7-10.3 Protein, Total 7.1 g/dL 6.0-8.5 Albumin 4.2 g/dL 3.8-4.8 Globulin, Total 2.9 g/dL 1.5-4.5 Bilirubin, Total 0.2 mg/dL 0.0-1 .2 Alkaline Phosphatase 194 IU/L High 44-121 Ast (Sgot) 30 IU/L 0-40 Alt (SGPT) 26 IU/L 0-32 TSH Rfx on Abnormal to Free T4 03/25/2024 [facility] TSH Rfx on Abnormal to Free T4 3.060 uIU/mL 0.450-4. 500 Lipid Panel 03/25/2024 [facility] Cholesterol, Total 180 mg/dL 100-199 Triglycerides 75 mg/dL 0-149 HDL Cholesterol 84 mg/dL >39 VLDL Cholestero l Wilmer 14 mg/dL 5-40 LDL Chol Calc ([facility]) 82 mg/dL 0-99 LDL Calc Comment: TNP TSH RFX On Abnormal To Free T4 03/06/2024 [facility] TSH RFX On Abnormal To Free T4 <pending> Glucose Fingerstick 03/06/2024 Inhouse Glucose Fingerstick 109 Hemoglobin A1c 03/06/2024 Inhouse Hemoglobin A1c 5.4% TSH Rfx on Abnormal to Free T4 11/21/2023 [facility] TSH RFX On Abnormal To Free T4 6.390 uIU/mL High 0.450-4. 500 T4,Free (Direct) 1.66 ng/dL 0.82-1.7 7 TSH RFX On Abnormal To Free T4 09/06/2023 [facility] TSH RFX On Abnormal To Free T4 <pending> Comp. Metabolic Panel (14) 09/04/2023 [facility] Glucose 93 mg/dL 70-99 BUN 19 mg/dL 8-27 Creatinine 0.59 mg/dL 0.57-1.0 0 eGFR 95 mL/min/1. 73 >59 BUN/Creatinine Ratio 32 High 12-28 Sodium 135 mmol/L 134-144 Potassium 4.7 mmol/L 3.5-5.2 Chloride 98 mmol/L 96-106 Carbon Dioxide, Total 20 mmol/L 20-29 Calcium 9.6 mg/dL 8.7-10.3 Protein, Total 7.3 g/dL 6.0-8.5 Albumin 4.4 g/dL 3.8-4.8 Globulin, Total 2.9 g/dL 1.5-4.5 A/G Ratio 1.5 1.2-2.2 Bilirubin, Total <0.2 mg/dL 0.0-1.2 Alkaline Phosphatase 139 IU/L High 44-121 Ast (Sgot) 28 IU/L 0-40 Alt (SGPT) 23 IU/L 0-32 Lipid Panel 09/04/2023 [facility] Cholesterol, Total 183 mg/dL 100-199 Triglycerides 62 mg/dL 0-149 HDL Cholesterol 77 mg/dL >39 VLDL Cholestero l Wilmer 12 mg/dL 5-40 LDL Chol Calc (Nih) 94 mg/dL 0-99 Comment: TNP TSH Rfx on Abnormal to Free T4 09/04/2023 [facility] TSH RFX On Abnormal To Free T4 6.080 uIU/mL High 0.450-4. 500 T4,Free (Direct) 1.53 ng/dL 0.82-1.7 7 Glucose Fingerstick 09/04/2023 Inhouse Glucose Fingerstick 95 Hemoglobin A1c 09/04/2023 Inhouse Hemoglobin A1c 5.6 TSH With Reflex To FT4 09/18/2022 [facility] TSH With Reflex To FT4 2.98 uIU/mL (0.4-4.2 ) Lipid Panel 09/18/2022 [facility] Cholesterol, Total 174 mg/dL (<200) Triglyceride 41 mg/dL (<150) HDL Chol 77 mg/dL (>39) LDL Cholesterol , Calculated 89 mg/dL (0-130) Non HDL Cholesterol (Calc) 97 mg/dL (<160) Glucose Fingerstick 09/12/2022 Inhouse Glucose Fingerstick 89 Hemoglobin A1c 09/12/2022 Inhouse Hemoglobin A1c 5.4% TSH With Reflex To FT4 06/01/2022 [facility] TSH With Reflex To FT4 0.19 uIU/mL Low (0.4-4.2 ) Free T4 06/01/2022 [facility] Free T4 1.77 ng/dL (0.70-1. 80) Glucose Fingerstick 06/01/2022 Inhouse Glucose Fingerstick 112 Hemoglobin A1c 06/01/2022 Inhouse Hemoglobin A1c 5.6% 1 Written Authorizatio n Received. Authorization received from VELVET THORPE for Link Request on 07-13-2024 Logged by Oksana Ernandez 2 Written Authorizatio n Received. Authorization received from VELVET THORPE for Link Request on 07-13-2024 Logged by Oksana Ernandez Procedures Date Code Description Status 07/09/2024 27635 Collection Of Venous Blood B y Venipuncture Completed 09/04/2023 95433 Collection Of Venous Blood B y Venipuncture Completed 06/01/2022 81004 Collection Of Venous Blood B y Venipuncture Completed Medical Devices Description No Information Available Encounters Type Date Location Provider Dx Diagnosis Office Visit 07/09/2024 2:30p Main Office Mariel Mcgarry M.D. 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 07/09/2024 E03.9 Hypothyroidism, unspecified Mariel Mcgarry M.D. 07/09/2024 E78.00 Pure hypercholes terolemia, unspecified Mariel Mcgarry M.D. 07/09/2024 I10 Essential (primary) hyperten christie Mariel Mcgarry M.D. 07/09/2024 K21.9 Gastro-esophagea l reflux disease without esophagitis Mariel Mcgarry M.D. 07/09/2024 G43.009 Migraine without aura, not intractable, without status migrainosus Mariel Mcgarry M.D. 07/09/2024 I48.0 Paroxysmal atrial fibrillati on Mariel Mcgarry M.D. 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 07/09/2024 D80.3 Selective defici ency of immunoglobulin G [IgG] subclasses Mariel Mcgarry M.D. 07/09/2024 E88.01 Kbmkt-5-vaxbnrcevaz deficien cy Mariel Mcgarry M.D. 07/09/2024 M32.9 Systemic lupus e rythematosus, unspecified Mariel Mcgarry M.D. 07/09/[address]24 [address] ate NOS Mariel Mcgarry M.D. Plan of Treatment Future Appointment(s):* 11/20/2024 2:15 pm - Mariel Mcgarry M.D. 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
== END 2024-08-04 12:29 | disposition home or self-care (01) ==
LOC: HO.HUSH 11:13
PROVIDERS: PCP Internal Medicine Endocrinology, Diabetes & Metabolism; Visit Provider Urology
DX: Z13.9 Encounter for screening, unspecified (principal)

== ENCOUNTER → 2024-08-04 11:12 | Outpatient (BNVA) | payer OTHER, SELFPAY | PROVIDERS: PCP Internal Medicine Endocrinology, Diabetes & Metabolism; Visit Provider Urology | DX: N31.9 Neuromuscular dysfunction of bladder, unspecified (principal); N39.0 Urinary tract infection, site not specified; N30.10 Interstitial cystitis (chronic) without hematuria | CPT/HCPCS: 51798; 81003 ==

== ENCOUNTER 2025-03-18 09:00 | Outpatient (AMB) | payer OTHER, SELFPAY ==
--- NOTE | 2025-03-18 09:19 | MHC.OFFVIS ---
Intake Visit Reasons: 6m follow up Intake Note: Patient is present for 6M/PVR Urology Medication:TERAZOSIN,VITAMIN C,,METHNAMINE HIPPURATE Antibiotic Allergy:CEPHALEXIN,LEVOFLOXACIN,NITROFURANTION Blood Thinner:XARELTO Todays PVR:0ML'S Linux Unix Administrator Required: No Accompanied by: Spouse Allergies carisoprodol (Soma) Allergy (Unknown, Verified 03/18/25 09:20) unk cephalexin (Keflex) Allergy (Unknown, Verified 03/18/25 09:20) Unknown levofloxacin (Levaquin) Allergy (Unknown, Verified 03/18/25 09:20) Unknown nitrofurantoin (Macrobid) Allergy (Unknown, Verified 03/18/25 09:20) Unknown Ansaid Allergy (Unknown, Uncoded 08/04/24 11:23) Unknown HPI Comments Details: Shakila is a very pleasant female. She is a patient of Dr Kay. She is seen for the following urologic conditions - recurring UTI - interstitial cystitis PVR today 0 UA clean Diagnosis with alpha 1 antitrypsin disease Background of lupus with chronic CellCept therapy Continues with - topical estrogen - cranberry extract - methenamine with vitamin-C - low-dose Augmentin suppression Shakila remains stable. Knows her interstitial cystitis triggers. Immunology has working to reduce her CellCept immunosuppression. Refill medications Six-month follow-up PVR Incomplete bladder emptying Current medication terazosin 1 mg Urinary Tract Infection: In setting of immunosuppression They present for followup evaluation for, recurrent UTI's. The first infection began Ongoing for many years. Investigations - 02/23 Microgen - positive with UA negative Therapy has included symptomatic use of antibiotics - Topical estrogen - Cranberry capsules - vitamin-C with methenamine [facility] Medical History Lupus Complicated UTI (urinary tract infection) Urethral pain Surgical History History of surgery Review of Systems Const Denies chills and Denies fever(s) Card Reports no additional complaints and Denies syncope Resp Denies cough GI Denies abdominal pain and Denies heartburn Reports as per HPI and Denies change in libido Neuro Denies syncope Psych Denies change in libido Endo Denies change in libido Physical Exam Const General: cooperative, healthy appearing, comfortable and no acute distress Orientation/consciousness: patient oriented x3 HEENT Face and sinus: Yes normal facial exam Mouth: moist mucous membranes Neck Neck: Yes normal visual inspection, Yes full ROM and Yes trachea midline Chest Chest palpation & inspection: normal inspection of the chest Resp Effort & Inspection: normal respiratory effort, able to speak in complete sentences and no respiratory distress GI Inspection: Yes normal to inspection Back/Spine/Pelvis Cervical Spine: normal cervical lordosis Thoracic/Lumbar Spine: thoracic and lumbar spine normal to inspection Skin General skin exam: no rashes or lesions noted Neuro General: patient oriented x3, gait normal, tone normal and moves all extremities Extrem General: Yes normal to inspection and Yes capillary refill normal Office Procedures Post Void Residual Post Residual Void Post Void Residual (PVR): 0 [id number]-[id number] Void Residual by ultrasound Results AMB Urinalysis, Automated UA Leukoctes 0 Chao/uL Last Edit by Dayami Love [facility] on 03/18/25 09:31 UA Nitrite Negative Last Edit by Dayami Love [facility] on 03/18/25 09:31 UA Urobilinogen 0.2 mg/dL Last Edit by Dayami Love [facility] on 03/18/25 09:31 UA Protein 0 mg/dL Last Edit by Dayami Love [facility] on 03/18/25 09:31 UA pH 6.0 Last Edit by Dayami Love [facility] on 03/18/25 09:31 UA Blood 0 Shaun/uL Last Edit by Dayami Love [facility] on 03/18/25 09:31 UA Specific [place] 1.015 Last Edit by Dayami Love [facility] on 03/18/25 09:31 UA Ketone Negative Last Edit by Dayami Love [facility] on 03/18/25 09:31 UA Bilirubin 0 mg/dL Last Edit by Dayami Love [facility] on 03/18/25 09:31 UA Glucose 0 mg/dL Last Edit by Dayami Love [facility] on 03/18/25 09:31 Results Reviewed Results Reviewed: Laboratory Last Values Urine pH (Auto) 6.0 03/18/25 09:31 Specific [place] (Auto) 1.015 03/18/25 09:31 Urine Protein (Auto) 0 mg/dL 11/13/25 09:31 Glucose (UA)(Auto) 0 mg/dL 03/18/25 09:31 Urine Ketones (Auto) Negative 03/18/25 09:31 Urine Blood (Auto) 0 Shaun/uL 03/18/25 09:31 Urine Nitrite (Auto) Negative 03/18/25 09:31 Urine Bilirubin (Auto) 0 mg/dL 03/18/25 09:31 Urine Urobilinogen (Auto) 0.2 mg/dL 03/18/25 09:31 Leukocyte Esterase (Auto) 0 Chao/uL 03/18/25 09:31 Assessment & Plan Assessment & Plan (1) Recurrent UTI (urinary tract infection): Code(s): N39.0 - Urinary tract infection, site not specified Category: Medical (2) Interstitial cystitis: Code(s): N30.10 - Interstitial cystitis (chronic) without hematuria Category: Medical Plan Continue medications Six-month follow-up Medications: Refilled amoxicillin-pot clavulanate 500-125 mg (Augmentin) 1 tab PO DAILY 90 tabs 1RF 90 days N39.0 - Urinary tract infection, site not specified ascorbic acid (vitamin C) 1 g PO DAILY 90 tabs 1RF 90 days N39.0 - Urinary tract infection, site not specified conjugated estrogens (Premarin) pea size amount to urethra 3 times a week 30 grams 1RF Patient Instructions: This note is constructed using voice recognition software. While every effort has been made to ensure accuracy graphic designer errors may have been included. Imaging studies, laboratory and physical exam results were discussed and reviewed in detail. No major barriers to patient understanding were identified. An opportunity to ask questions regarding the treatment plan was provided. All questions were answered. The patient expressed understanding and agreement with the above treatment plan. The patient is aware they should contact our office by phone for worsening of their current condition or the appearance of new urologic symptoms. Compliance is encouraged with any medications and followup testing that is ordered. It is a privilege to participate in the urologic care of your patient. If you have any questions or concerns regarding treatment for the above conditions, or other urologic issues, please do not hesitate to contact me. The office telephone contact is [phone]. Sincerely, Dr Denilson Hernandez MD, [facility] - Urology Compassionate Specialist Care for the Genitourinary System Coding Level of Care Code Est Pt Level 3 (52327) Complex EM visit Add On G2211 Diagnoses Recurrent UTI (urinary tract infection) N39.0 Interstitial cystitis N30.10 CPT Codes Post Residual Void - PVR CPT Code: 33035-Zcnd Void Residual by ultrasound ([id number])
--- OUTSIDE RECORDS SUMMARY | 2025-03-18 09:44 | XMS_ITS | Encounter Summary ---
Author Organization [facility] Address [address] [facility] [address] [place] [address] Phone Care Team Providers Care Machine Shop Worker Name Role Phone Mariel Mcgarry MD Primary Care Prov ider Mariel Mcgarry MD Unavailable + Sybil Hernandez MD Unavailable [phone] Encounter Details Date Type Department Care Team (Late Contact Info) Description 12/12/2020 Ancillary Orders [facility],Outside Imaging [address] [place], [place] [id number] System, Provider Not In, [place] [address] Social History Tobacco Use Types Packs/Day Years Used Date Smoking Tobacco: Never Smokeless Tobacco: Never Alcohol Use Standard Drinks/Week Comments Yes 1 (1 standard drink = 0.6 oz pur e alcohol) Nightly Comments Unknown Sex and Gender Information Value Date Recorded Sex Assigned at Not on file Legal Sex Female 10:37 PM EDT Gender Identity Not on file Sexual Orientation Not on file documented as of this encounter Plan of Treatment Upcoming Encounters Date Type Department Care Team (Late Contact Info) Description 04/14/2025 1:00 PM EST Office Visit [facility] Rheumatology [address] [place] [address] Sybil Hernandez MD [address] [facility], [address] [place] [address] documented as of this encounter Results * CT Abdomen/Pelvis Outside (No Interpretation) (09/27/2020 12:00 AM EDT) Narrative SYSTEMGENERATED, DOCUMENTATION - 12/12/2020 2:53 PM EDT This study is for PACS storage only and not for interpretation. us Provider Not In System PhD IMG OUTSIDE IMAGING W /OUT INTERPRETATION Final Result * CT Chest Outside (No Interpretation) (05/11/2015 12:00 AM EST) Narrative SYSTEMGENERATED, DOCUMENTATION - 12/12/2020 2:54 PM EDT This study is for PACS storage only and not for interpretation. us Provider Not In System PhD IMG OUTSIDE IMAGING W /OUT INTERPRETATION Final Result documented in this encounter Visit Diagnoses Not on filedocumented in this encounter Care Teams Machine Shop Worker Relationship Specialty Start Date End Date Mariel Mcgarry MD [address] [place] [address] Dr [address] [place] [address] PCP - General 02/21/17 Mariel Mcgarry MD [address] [place] [address] Dr [address] [place] [address] Historical LMR Provider 02/23/17 Sybil Hernandez MD [address] [place] [address], [address] [place] [address] Historical LMR Provider 02/23/17 documented as of this encounter Additional Source Comments The information contained in this document represents components of the legal health record. It is not the complete legal health record.[facility]
--- OUTSIDE RECORDS SUMMARY | 2025-03-18 09:44 | XMS_ITS | Encounter Summary ---
Author Organization [facility] Address [address] [facility] [address] [place] [address] Phone Care Team Providers Care Trimmer Machine Operator Name Role Phone Mariel Mcgarry MD Primary Care Prov ider Mariel Mcgarry MD Unavailable + Sybil Hernandez MD Unavailable [phone] Encounter Details Date Type Department Care Team (Late Contact Info) Description 03/14/2021 Ancillary Orders [facility],Outside Imaging [address] [place], [place] [id number] System, Provider [place] In, [place] [address] Social History Tobacco Use Types Packs/Day Years [...] Description 04/14/2025 1:00 PM EST Office Visit [facility] Rheumatology [address] [place] [address] Sybil Hernandez MD [address] [facility], [address] [place] [address] [email or web address] documented as of this encounter Results * CT Chest Outside (No Interpretation) (01/12/2020 12:00 AM EDT) Narrative SYSTEMGENERATED, DOCUMENTATION - 03/14/2021 2:22 PM EST This study is for PACS storage only and not for interpretation. us Provider Not In System PhD IMG OUTSIDE IMAGING W /OUT INTERPRETATION Final Result documented in this encounter Visit Diagnoses Not on filedocumented in this encounter Care Teams Trimmer Machine Operator Relationship Specialty Start Date End Date Mariel Mcgarry MD [address] [place] [address] [address] [place] [address] [facility] - General 02/21/17 Mariel Mcgarry MD [address] [place] [address] [place] [address] Historical LMR Provider 02/23/17 Sybil Hernandez MD [address] [place] [address], [facility] [address] [place] [address] [email or web address] Historical LMR Provider 02/23/17 documented as of this encounter Additional Source Comments The information contained in this document represents components of the legal health record. It is not the complete legal health record.[facility]
--- OUTSIDE RECORDS SUMMARY | 2025-03-18 09:44 | XMS_ITS | Encounter Summary ---
Author Organization [facility] Address [address] [facility] [address] [place], [place] [phone] Phone Care Team Providers Care Powder Hand Name Role Phone Mariel Mcgarry MD Primary Care Prov ider Mariel Mcgarry MD Unavailable + Sybil Hernandez MD Unavailable [phone] Encounter Details Date Type Department Care Team (Late st Contact Info) Description 11/10/2020 Procedure Pass [facility] Interventional Radiology [address] [place] [address] Social History Tobacco Use Types Packs/Day Years [...] Encounters Date Type Department Care Team (Late st Contact Info) Description 04/14/2025 1:00 PM EST Office Visit [facility] Rheumatology [address] [place] [address] Sybil Hernandez MD [address] [facility], [address] [place] [address] documented as of this encounter Visit Diagnoses Not on filedocumented in this encounter Care Teams Powder Hand Relationship Specialty Start Date End Date Mariel Mcgarry MD [address] [place] [address] Dr [address] [place] [address] PCP - General 02/21/17 Mariel Mcgarry MD [address] [place] [address] Dr [address] [place] [address] Historical LMR Provider 02/23/17 Sybil Hernandez MD [address] [place] [address], [facility] [address] [place] [address] [email or web address] Historical LMR Provider 02/23/17 documented as of this encounter Additional Source Comments The information contained in this document represents components of the legal health record. It is not the complete legal health record.[facility]
--- OUTSIDE RECORDS SUMMARY | 2025-03-18 09:44 | XMS_ITS | Clinical Summary ---
Author Organization [facility] [address] [facility] Address [address] [place] [address] Phone Care Team Providers Care Finance Teacher Name Role Phone Mariel Mcgarry MD Primary Care Provid er Allergies Active Allergy Reactions Criticality Noted Date Comments Carisoprodol 08/20/2024 Benralizumab 08/20/2024 Cephalexin 08/20/2024 Levofloxacin 08/20/2024 Nitrofurantoin Monohyd/M-Cryst 08/20 Nsaids (Non-Steroidal Anti-I nflammatory Drug) 08/20/2024 Tobramycin 08/20/2024 Medications metoclopramide (REGLAN) 10 mg tabletIndications :GERD (gastroesophageal reflux disease) Take 1 tablet (10 mg total) by mouth 4 (four) times a day. Take with meals and at bedtime 120 each 11 4 03/27/20 25 Active docusate sodium (COLACE) 100 mg capsuleIndication s:Constipation, unspecified constipation type TAKE 2 CAPSULES BY MOUTH DAILY 60 capsule 3 5 Active amitriptyline (ELAVIL) 10 mg tablet Take 4 tablets (40 mg total) by mouth at bedtime. 5 Active dilTIAZem CD (CARDIZEM CD) 240 mg 24 hr capsule Take 1 capsule (240 mg total) by mouth 1 (one) time each day. 5 Active Dupixent Syringe 300 mg/2 mL syringe Inject 2 mL (300 mg total) under the skin every 14 (fourteen) days. 5 Active Trelegy Ellipta 200-62.5-25 mcg inhaler Inhale 1 puff (200 mcg total) by mouth 1 (one) time each day. 5 Active gabapentin (NEURONTIN) 300 mg capsule Take 1 capsule (300 mg total) by mouth at bedtime. 5 Active levothyroxine (SYNTHROID, LEVOTHROID) 175 mcg tablet Take 1 tablet (175 mcg total) by mouth 1 (one) time each day before breakfast. 5 Active Creon 36,000-114,000- 180,000 unit capsule,delayed release(DR/EC) Take 1 capsule by mouth 4 (four) times a day. 5 Active montelukast (SINGULAIR) 10 mg tablet Take 1 tablet (10 mg total) by mouth at bedtime. 5 Active mycophenolate (CELLCEPT) 500 mg tablet Take 1 tablet (500 mg total) by mouth. 5 Active Xarelto 20 mg tablet Take 1 tablet (20 mg total) by mouth 1 (one) time each day with dinner. 5 Active simvastatin (ZOCOR) 10 mg tablet Take 1 tablet (10 mg total) by mouth 1 (one) time each day. 5 Active terazosin (HYTRIN) 1 mg capsule Take 1 capsule (1 mg total) by mouth. at bedtime 5 Active tiZANidine (ZANAFLEX) 4 mg tablet 5 Active aspirin 81 mg EC tablet Take 1 tablet (81 mg total) by mouth 1 (one) time each day. Active calcium citrate-vitamin D (CITRACAL+D) 315 mg-5 mcg (200 unit) per tablet Take 1 tablet by mouth 1 (one) time each day. Active CRANBERRY ORAL Take 600 mg by mouth 1 (one) time each day. Active omega 8-gus-dal-fish oil (Fish OiL) 1,200 (144-216) mg capsule Take by mouth. Active glucosamine-chond roitin 500-400 mg tablet Take 1 tablet by mouth 3 (three) times a day. Active LYSINE ORAL Take 500 mg by mouth. Active methenamine hippurate (HIPREX) 1 gram tablet Take 1 tablet (1 g total) by mouth 2 (two) times a day with meals. Active lactobacillus acidoph-l.bulgar 100 million cell granules in packet Take 1 packet by mouth. Active amoxicillin (AMOXIL) 500 mg capsule Take by mouth. Active conjugated estrogens (Premarin) vaginal cream Insert 1 g into the vagina. 4 Active cholecalciferol (VITAMIN D-3) 25 mcg (1,000 unit) tablet Take 1 tablet (1,000 Units total) by mouth 2 times daily. Active ascorbic acid (VITAMIN C) 500 mg tablet Take 2 tablets (1,000 mg total) by mouth daily. Active sodium chloride 5 % ophthalmic ointment 1 Active multivitamine, geriatric, (CENTRUM SILVER) tablet Take 1 tablet by mouth daily. Active Bacillus coagulans/inulin (PROBIOTIC FORMULA, INULIN, ORAL) Take by mouth. 4 Active pantoprazole (PROTONIX) 40 mg EC tabletIndications :Gastroesophageal reflux disease without esophagitis TAKE 1 TABLET BY MOUTH DAILY 90 tablet 2 5 Active Active Problems Problem Noted Date Diagnosed Date DM type 2 (diabetes mellitus , type 2) ([facility] V24, [facility] V28) 08/20/2024 Hypothyroidism 08/20/2024 Pure hypercholesterolemia 08/20/2024 Gastroesophageal reflux disease without esophagi tis 08/20/2024 Hypertension 08/20/2024 Migraine without aura 08/20/2024 Paroxysmal atrial fibrillation ([facility] V24, 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 V24, [facility] V28) 08/20/2024 Caool-3-llflhidtmyg deficiency ([facility] V24, [facility] V28) 08/20/2024 Systemic lupus erythematosus ([facility] V24, [facility] V28) 08/20/2024 Secondary hypercoagulable state ([facility] V24) Encounters Date Type Department Care Team Description 12/17/2024 Lab Requisition [facility] - Main Lab [address] [facility] [place] [address] Hernandez Metz PA Encounter for other general examination from Last 3 Months Surgical History Surgery Date Site/Laterality Comments HYSTERECTOMY TOTAL CERVIX REMOVED CHOLECYSTECTOMY SECTION BREAST LUMPECTOMY Left Benign COLONOSCOPY 08/23/2022 ESOPHAGOGASTRODUODENOSCOPY 05/10/2021 Family History Medical History Relation Name Comments Hypertension Brother Bullous pemphigoid Mother Colonic polyp Mother Osteoporosis Mother Relation Name Status Comments Brother Mother Social History Tobacco Use Types Packs/Day Years Used Date Smoking Tobacco: Never Smokeless Tobacco: Never Tobacco Cessation:Counseling Given: Not Answered Alcohol Use Standard Drinks/Week Comments Yes 0 (1 standard drink = 0.6 oz pur e alcohol) glass of wine 5x a week Comments Unknown Sex and Gender Information Value Date Recorded Sex Assigned at Not on file Legal Sex Female 1:18 AM EST Gender Identity Not on file Sexual Orientation Not on file Obstetrics History Last Filed Vital Signs Vital Sign Reading Time Taken Comments Blood Pressure - - Pulse - - Temperature - - Respiratory Rate - - Oxygen Saturation - - Inhaled Oxygen Concentration - - Weight 85.7 kg (189 lb) 09/01/2024 8:47 AM EDT Height 165.1 cm (5' 5 ) 09/01/2024 8:47 AM EDT Body Mass Index 31.45 09/01/2024 8:47 AM EDT Plan of Treatment Health Maintenance Due Date Last Done Comments COVID-19 Vaccine (#1) 1954 Diabetes: Annual Foot Exam 1959 Diabetes: Annual Retina Eye Exam 1959 DTaP,Tdap,and Td Vaccines (1 - Tdap) 1968 Hepatitis A Vaccines (1 of 2 - Risk 2-dose series) 1968 Zoster Vaccines (1 of 2) 1968 Hepatitis B Vaccines (1 of 3 - Risk 3-dose series) 2009 Pneumococcal Vaccine: 50+ Years (3 of 3 - PCV20 or PCV21) 02/18/2019 09/03/2017, 02/18/2014 Cholesterol Screening (Lipid Panel) 04/08/2022 Falls Risk Assessment 04/08/2022 Hepatitis C Screening 04/08/2022 Medicare Annual Wellness Visit 04/08/2022 Osteoporosis Screening (Bone Density Screening) 04/08/2022 Social Influencers of Health Screening 04/08/2022 Depression Screening 05/06/2024 RSV Immunization Adult Patients (1 - 1-dose 75+ series) 2024 Diabetes: Annual Urine Albumin-Creatinine Ratio (uACR) 08/20/2024 Diabetes: Blood Sugar Control Test (HGBA1C) 08/20/2024 Influenza Vaccine (#1) 2025 , 02/19/2019, 01/10/2018, Additional history exists Diabetes: Annual GFR (Glomerular Filtration Rate) 12/17/2025 12/17/2024, 12/10/2024, 12/07/2024, Additional history exists Hypertension/CHF/CAD Annual BMP Blood Test 12/17/2025 12/17/2024, 12/10/2024, 12/07/2024, Additional history exists Colorectal Cancer Screening: Colonoscopy 03/23/2030 03/23/2020, 03/29/2015, 06/14/2008, Additional history exists HIB Vaccines Aged Out No longer eligi [...] age to complete this topic Meningococcal B Vaccine Aged Out No l onger eligible based on patient's age to complete this topic RSV Immunization Patients Under 20 months Aged Out No longer eligible based on patient's age to complete this topic Varicella Vaccines Aged Out No longer eligible based on patient's age to complete this topic Procedures Procedure Name Priority Date/Time Associated Diagnosis Comments COMPLETE BLOOD COUNT Routine 12/17/2024 7:38 AM EDT Encounter for other general examination BASIC METABOLIC PANEL Routine 12/17/2024 7:38 AM EDT Encounter for other general examination EXTERNAL COLONOSCOPY REPORT Routine 03/23/2020 11:37 AM EST from Last 3 Months or Most Recently Relevant to Health Maintenance Results * (ABNORMAL) Complete blood count (12/17/2024 7:38 AM EDT) WBC 8.3 4.8 - 10.8 K/mcL LAB HEMETOLOGY METHOD 12/17/2024 10:38 AM EDT [facility] RBC 4.30 3.80 - 4.80 M/mcL LAB HEMETOLOGY METHOD 12/17/2024 10:38 AM EDT [facility] LAB Hemoglobin 12.4 11.5 - 16.0 g/dL LAB HEMETOLOGY METHOD 12/17/2024 10:38 AM [facility] LAB Hematocrit 38.0 35.0 - 47.0 % LAB HEMETOLOGY METHOD 12/17/2024 10:38 AM [facility] LAB MCV 89.4 79.0 - 98.0 FL LAB HEMETOLOGY METHOD 12/17/2024 10:38 AM EDT [facility] LAB MCH 29.2 27.0 - 32.0 pcg LAB HEMETOLOGY METHOD 12/17/2024 10:38 AM [facility] LAB MCHC 32.6 32.0 - 37.0 g/dL LAB HEMETOLOGY METHOD 12/17/2024 10:38 AM [facility] LAB RDW 13.9 11.0 - 15.0 % LAB HEMETOLOGY METHOD 12/17/2024 10:38 AM [facility] LAB Platelets 522(H) 130 - 400 K/mcL LAB HEMETOLOGY METHOD 12/17/2024 10:38 AM [facility] LAB MPV 9.9 7.0 - 11.0 FL LAB HEMETOLOGY METHOD 12/17/2024 10:38 AM [facility] LAB NRBC 0.0 <1.0 % LAB HEMETOLOGY METHOD 12/17/2024 10:38 AM [facility] LAB NRBC Absolute 0.00 <0.10 K/mcL LAB HEMETOLOGY METHOD 12/17/2024 10:38 AM [facility] LAB Blood Venous blood specimen / Unknown Venipuncture / Unknown 12/17/2024 7:38 AM EDT 12/17/2024 8:48 AM EDT us Hernandez VEE LAB BLOOD ORDERABLES Final R esult [facility] [address] [place] [address], * (ABNORMAL) Basic metabolic panel (12/17/2024 7:38 AM EDT) Sodium 135 133 - 145 mmol/L LAB CHEMISTRY METHOD 12/17/2024 11:44 AM [facility] Potassium 4.2 3.5 - 5.5 mmol/L LAB CHEMISTRY METHOD 12/17/2024 11:44 AM [facility] LAB Chloride 104 96 - 110 mmol/L LAB CHEMISTRY METHOD 12/17/2024 11:44 AM [facility] CO2 26 21 - 32 mmol/L LAB CHEMISTRY METHOD 12/17/2024 11:44 AM [facility] LAB Anion Gap 5 3 - 11 LAB CHEMISTRY METHOD 12/17/2024 11:44 AM [facility] LAB Glucose 97 70 - 100 mg/dL LAB CHEMISTRY METHOD 12/17/2024 11:44 AM [facility] BUN 9 5 - 25 mg/dL LAB CHEMISTRY METHOD 12/17/2024 11:44 AM [facility] LAB Creatinine 0.49(L) 0.50 - 1.10 mg/dL LAB CHEMISTRY METHOD 12/17/2024 11:44 AM [facility] LAB eGFR 98 >=60 mL/min/1. 73m2 LAB CHEMISTRY METHOD 12/17/2024 11:44 AM [facility] LAB Comment:Calculation based on the Chronic Kidney Disease Epidemiology Collaboration (CKD-EPI) equation refit without adjustment for race. BUN/Creatinine Ratio 18.4 LAB CHEMISTRY METHOD 12/17/2024 11:44 AM [facility] LAB Calcium 8.5 8.5 - 10.5 mg/dL LAB CHEMISTRY METHOD 12/17/2024 11:44 AM EDT [facility] LAB Blood Venous blood specimen / Unknown Venipuncture / Unknown 12/17/2024 7:38 AM EDT 12/17/2024 8:48 AM EDT Hernandez VEE LAB BLOOD ORDERABLES Final R esult [facility] [address] [place] [address], * External Colonoscopy Report (03/23/2020 11:37 AM EST) Anatomical Region Laterality Modality Endoscopy Historical Provider GI~PROCEDURE ORDERABLES F inal Result from Last 3 Months or Most Recently Relevant to Health Maintenance Insurance MEDICARE [employer] Care Teams Finance Teacher Relationship Specialty Start Date End Date Mariel Mcgarry MD PCP - General Endocrinology 07/30/24
--- OUTSIDE RECORDS SUMMARY | 2025-03-18 09:44 | XMS_ITS | Clinical Summary ---
Author Organization [employer] [facility] Address [address] [place] [address] Care Team Providers Care C Developer Name Role Phone Unavailable Primary Care Provider Unavailabl e Social History Tobacco Use Types Packs/Day Years Used Date Smoking Tobacco: Never Assessed Sex and Gender Information Value Date Recorded Sex Assigned at Not on file Gender Identity Not on file Sexual Orientation Not on file Job Start Date Occupation Industry Not on file Not on file Not on file Plan of Treatment Health Maintenance Due Date Last Done Comments Hepatitis C Screening 1950 COVID-19 Vaccine (#1) 1949 Depression Screening 1961 Preventative Health Evaluation 1967 DTap / Tdap / Td (1 - Tdap) 1968 Colon Cancer Screening (Colonoscopy) 1994 Shingrix-Zoster Vaccine (1 of 2) 1999 Fall Risk Assessment 2014 Osteoporosis Screening (DEXA Scan) 2014 Pneumococcal Vaccine (1 of 1 - PCV) 2014 RSV Adult > 60+ Yrs or Pregn ant (1 - 1-dose 75+ series) 2024 Influenza Vaccine (#1) 2025 02/04/2017 Hepatitis B Vaccines Aged Out No long er eligible based on patient's age to complete this topic RSV Ped < 20 months Aged Out No longe r eligible based on patient's age to complete this topic Shakila Hook Personal/Family Self [address] [place] [address] Shakila Hook Personal/Family Self [address] [place] [address]
--- OUTSIDE RECORDS SUMMARY | 2025-03-18 09:44 | XMS_ITS | Encounter Summary ---
Author Organization [facility] Address [address] [facility] [address] [place] [address] Phone Care Team Providers Care Nanny/Household Manager Name Role Phone Mariel Mcgarry MD Primary Care Prov ider Mariel Mcgarry MD Unavailable + Sybil Hernandez MD Unavailable [phone] Encounter Details Date Type Department Care Team (Late Contact Info) Description 03/14/2021 Ancillary Orders [facility],Outside Imaging [address] [place], [place] [id number] System, Provider Not In, [place] [address] Social History Tobacco Use Types Packs/Day Years [...] Description 04/14/2025 1:00 PM EST Office Visit [facility] Rheumatology [address] [place] [address] Sybil Hernandez MD [address] [facility], [address] [place] [address] [email or web address] documented as of this encounter Results * CT Chest Outside (No Interpretation) (12/09/2018 12:00 AM EDT) Narrative SYSTEMGENERATED, DOCUMENTATION - 03/14/2021 2:21 PM EST This study is for PACS storage only and not for interpretation. us Provider Not In System PhD IMG OUTSIDE IMAGING W /OUT INTERPRETATION Final Result documented in this encounter Visit Diagnoses Not on filedocumented in this encounter Care Teams Nanny/Household Manager Relationship Specialty Start Date End Date Mariel Mcgarry MD [address] [place] [address] [address] [place] [address] [facility] - General 02/21/17 Mariel Mcgarry MD [address] [place] [address] [place] [address] Historical LMR Provider 02/23/17 Sybil Hernandez MD [address] [place] [address], [facility] [address] [place] [address] [email or web address] Historical LMR Provider 02/23/17 documented as of this encounter Additional Source Comments The information contained in this document represents components of the legal health record. It is not the complete legal health record.[facility]
--- OUTSIDE RECORDS SUMMARY | 2025-03-18 09:44 | XMS_ITS | Encounter Summary ---
Author Organization [facility] Address [address] [place] [phone] Care Team Providers Care Drivability Technician Name Role Phone Mariel Mcgarry MD Primary Care Provid er Encounter Details Date Type Department Care Team (Late st Contact Info) Description 12/10/2024 Lab Requisition [facility] - Main Lab [address] [place] [address] Hernandez Metz PA [address] [address] Encounter for other general examination Social History Tobacco Use Types Packs/Day Years Used Date Smoking Tobacco: Never Smokeless Tobacco: Never Alcohol Use Standard Drinks/Week Comments Yes 0 (1 standard drink = 0.6 oz pur e alcohol) glass of wine 5x a week Comments Unknown Sex and Gender Information Value Date Recorded Sex Assigned at Not on file Legal Sex Female 1:18 AM EST Gender Identity Not on file Sexual Orientation Not on file documented as of this encounter Plan of Treatment Not on file documented as of this encounter Procedures Procedure Name Priority Date/Time Associated Diagnosis Comments COMPLETE BLOOD COUNT Routine 12/10/2024 7:46 AM EDT Encounter for other general examination BASIC METABOLIC PANEL Routine 12/10/2024 7:46 AM EDT Encounter for other general examination documented in this encounter Results * (ABNORMAL) Basic metabolic panel (12/10/2024 7:46 AM EDT) Sodium 136 133 - 145 mmol/L LAB CHEMISTRY METHOD 12/10/2024 12:33 PM EDT [facility] LAB Potassium 4.2 3.5 - 5.5 mmol/L LAB CHEMISTRY METHOD 12/10/2024 12:33 PM [facility] LAB Chloride 102 96 - 110 mmol/L LAB CHEMISTRY METHOD 12/10/2024 12:33 PM [facility] LAB CO2 26 21 - 32 mmol/L LAB CHEMISTRY METHOD 12/10/2024 12:33 PM [facility] LAB Anion Gap 8 3 - 11 LAB CHEMISTRY METHOD 12/10/2024 12:33 PM [facility] LAB Glucose 71 70 - 100 mg/dL LAB CHEMISTRY METHOD 12/10/2024 12:33 PM [facility] LAB BUN 13 5 - 25 mg/dL LAB CHEMISTRY METHOD 12/10/2024 12:33 PM [facility] LAB Creatinine 0.49(L) 0.50 - 1.10 mg/dL LAB CHEMISTRY METHOD 12/10/2024 12:33 PM [facility] LAB eGFR 98 >=60 mL/min/1. 73m2 LAB CHEMISTRY METHOD 12/10/2024 12:33 PM [facility] LAB Comment:Calculation based on the Chronic Kidney Disease Epidemiology Collaboration (CKD-EPI) equation refit without adjustment for race. BUN/Creatinine Ratio 26.5 LAB CHEMISTRY METHOD 12/10/2024 12:33 PM [facility] LAB Calcium 8.3(L) 8.5 - 10.5 mg/dL LAB CHEMISTRY METHOD 12/10/2024 12:33 PM [facility] LAB Blood Venous blood specimen / Unknown Venipuncture / Unknown 12/10/2024 7:46 AM EDT 12/10/2024 10:46 AM EDT us Hernandez VEE LAB BLOOD ORDERABLES Final R esult [facility] LAB [address] [place] [address], [place] [phone] * (ABNORMAL) Complete blood count (12/10/2024 7:46 AM EDT) [facility] WBC 9.0 4.8 - 10.8 K/mcL LAB HEMETOLOGY METHOD 12/10/2024 11:38 AM [facility] LAB RBC 4.30 3.80 - 4.80 M/mcL LAB HEMETOLOGY METHOD 12/10/2024 11:38 AM [facility] LAB Hemoglobin 12.3 11.5 - 16.0 g/dL LAB HEMETOLOGY METHOD 12/10/2024 11:38 AM [facility] LAB Hematocrit 39.1 35.0 - 47.0 % LAB HEMETOLOGY METHOD 12/10/2024 11:38 AM [facility] LAB MCV 90.5 79.0 - 98.0 FL LAB HEMETOLOGY METHOD 12/10/2024 11:38 AM [facility] LAB MCH 28.5 27.0 - 32.0 pcg LAB HEMETOLOGY METHOD 12/10/2024 11:38 AM [facility] LAB MCHC 31.5(L) 32.0 - 37.0 g/dL LAB HEMETOLOGY METHOD 12/10/2024 11:38 AM [facility] LAB RDW 13.4 11.0 - 15.0 % LAB HEMETOLOGY METHOD 12/10/2024 11:38 AM [facility] LAB Platelets 378 130 - 400 K/mcL LAB HEMETOLOGY METHOD 12/10/2024 11:38 AM [facility] LAB MPV 10.1 7.0 - 11.0 FL LAB HEMETOLOGY METHOD 12/10/2024 11:38 AM [facility] LAB NRBC 0.0 <1.0 % LAB HEMETOLOGY METHOD 12/10/2024 11:38 AM [facility] LAB NRBC Absolute 0.00 <0.10 K/mcL LAB HEMETOLOGY METHOD 12/10/2024 11:38 AM EDT [facility] LAB Blood Venous blood specimen / Unknown Venipuncture / Unknown 12/10/2024 7:46 AM EDT 12/10/2024 10:46 AM EDT us Hernandez VEE LAB BLOOD ORDERABLES Final R esult [facility] LAB [address] [place] [address], documented in this encounter Visit Diagnoses Diagnosis Encounter for other general examination documented in this encounter Care Teams Drivability Technician Relationship Specialty Start Date End Date Mariel Mcgarry MD PCP - General Endocrinology 07/30/24 documented as of this encounter
--- OUTSIDE RECORDS SUMMARY | 2025-03-18 09:44 | XMS_ITS | Encounter Summary ---
Author Organization [facility] Address [address] [place] [phone] Care Team Providers Care Counseling Psychologist Name Role Phone Mariel Mcgarry MD Primary Care Provid er Encounter Details Date Type Department Care Team (Late st Contact Info) Description 12/17/2024 Lab Requisition [facility] - Main Lab [address] [place] [address] Hernandez Metz PA [address] [address] Encounter for other general examination [...] documented in this encounter Results * (ABNORMAL) Complete blood count (12/17/2024 7:38 AM EDT) WBC 8.3 4.8 - 10.8 K/[facility] LAB HEMETOLOGY METHOD 12/17/2024 10:38 AM [facility] LAB RBC 4.30 3.80 - 4.80 M/mcL LAB HEMETOLOGY METHOD 12/17/2024 10:38 AM [facility] LAB Hemoglobin 12.4 11.5 - 16.0 g/dL LAB HEMETOLOGY METHOD 12/17/2024 10:38 AM [facility] LAB Hematocrit 38.0 35.0 - 47.0 % LAB HEMETOLOGY METHOD 12/17/2024 10:38 AM [facility] LAB MCV 89.4 79.0 - 98.0 FL LAB HEMETOLOGY METHOD 12/17/2024 10:38 AM [facility] LAB MCH 29.2 27.0 - 32.0 pcg LAB HEMETOLOGY METHOD 12/17/2024 10:38 AM [facility] LAB MCHC 32.6 32.0 - 37.0 g/dL LAB HEMETOLOGY METHOD 12/17/2024 10:38 AM [facility] LAB RDW 13.9 11.0 - 15.0 % LAB HEMETOLOGY METHOD 12/17/2024 10:38 AM [facility] LAB Platelets 522(H) 130 - 400 K/mcL LAB HEMETOLOGY METHOD 12/17/2024 10:38 AM [facility] LAB MPV 9.9 7.0 - 11.0 FL LAB HEMETOLOGY METHOD 12/17/2024 10:38 AM [facility] LAB NRBC 0.0 <1.0 % LAB HEMETOLOGY METHOD 12/17/2024 10:38 AM [facility] LAB NRBC Absolute 0.00 <0.10 K/mcL LAB HEMETOLOGY METHOD 12/17/2024 10:38 AM [facility] LAB Blood Venous blood specimen / Unknown Venipuncture / Unknown 12/17/2024 7:38 AM EDT 12/17/2024 8:48 AM EDT us Hernandez VEE LAB BLOOD ORDERABLES Final R esult [facility] [address] [place] [address], [place] [phone] * (ABNORMAL) Basic metabolic panel (12/17/2024 7:38 AM EDT) Sodium 135 133 - 145 mmol/L LAB CHEMISTRY METHOD 12/17/2024 11:44 AM [facility] LAB Potassium 4.2 3.5 - 5.5 mmol/L LAB CHEMISTRY METHOD 12/17/2024 11:44 AM [facility] LAB Chloride 104 96 - 110 mmol/L LAB CHEMISTRY METHOD 12/17/2024 11:44 AM [facility] LAB CO2 26 21 - 32 mmol/L LAB CHEMISTRY METHOD 12/17/2024 11:44 AM [facility] LAB Anion Gap 5 3 - 11 LAB CHEMISTRY METHOD 12/17/2024 11:44 AM [facility] LAB Glucose 97 70 - 100 mg/dL LAB CHEMISTRY METHOD 12/17/2024 11:44 AM [facility] BUN 9 5 - 25 mg/dL LAB CHEMISTRY METHOD 12/17/2024 11:44 AM [facility] LAB Creatinine 0.49(L) 0.50 - 1.10 mg/dL LAB CHEMISTRY METHOD 12/17/2024 11:44 AM [facility] LAB eGFR 98 >=60 mL/min/1. 73m2 LAB CHEMISTRY METHOD 12/17/2024 11:44 AM [facility] LAB Comment:Calculation based on the Chronic Kidney Disease Epidemiology Collaboration (CKD-EPI) equation refit without adjustment for race. BUN/Creatinine Ratio 18.4 LAB CHEMISTRY METHOD 12/17/2024 11:44 AM [facility] LAB Calcium 8.5 8.5 - 10.5 mg/dL LAB CHEMISTRY METHOD 12/17/2024 11:44 AM EDT [facility] LAB Blood Venous blood specimen / Unknown Venipuncture / Unknown 12/17/2024 7:38 AM EDT 12/17/2024 8:48 AM EDT us Hernandez VEE LAB BLOOD ORDERABLES Final R esult [facility] [address] [place] [address], documented in this encounter Visit Diagnoses Diagnosis Encounter for other general examination documented in this encounter Care Teams Counseling Psychologist Relationship Specialty Start Date End Date Mariel Mcgarry MD PCP - General Endocrinology 07/30/24 documented as of this encounter
--- OUTSIDE RECORDS SUMMARY | 2025-03-18 09:44 | XMS_ITS | Encounter Summary ---
Author Organization [facility] Address [address] [facility] [address] [place], [place] [id number] Phone Care Team Providers Care Clinical Biochemist Name Role Phone Mariel Mcgarry MD Primary Care Prov ider Mariel Mcgarry MD Unavailable + Sybil Hernandez MD Unavailable [phone] Encounter Details Date Type Department Care Team (Late st Contact Info) Description 10/28/2020 Procedure Pass [facility] Cardiovascular And Interventional Radiology [address] [place] [address] Social History Tobacco Use Types Packs/Day Years [...] Visit [facility] Rheumatology [address] [place] [address] Sybil Hernandez MD [address] [facility], [address] [place] [address] documented as of this encounter Visit Diagnoses Not on filedocumented in this encounter Care Teams Clinical Biochemist Relationship Specialty Start Date End Date Mariel Mcgarry MD [address] [place] [address] Dr BARNES [address] [place] [address] PCP - General 02/21/17 Mariel Mcgarry MD [address] [place] [address] Dr BARNES [address] [place] [address] Historical LMR Provider 02/23/17 Sybil Hernandez MD [address] [place] [address], [facility] [address] [place] [address] [email or web address] Historical LMR Provider 02/23/17 documented as of this encounter Additional Source Comments The information contained in this document represents components of the legal health record. It is not the complete legal health record.[facility]
--- OUTSIDE RECORDS SUMMARY | 2025-03-18 09:44 | XMS_ITS | Encounter Summary ---
Author Organization [facility] Address [address] [address] Phone Care Team Providers Care Stylist Apprentice Name Role Phone Mariel Mcgarry MD Primary Care Prov ider Mariel Mcgarry MD Unavailable + Sybil Hernandez MD Unavailable [phone] Reason for Referral * Consultation (Elective) - Closed Specialty Diagnoses / Procedures Referred By Trang holman Referred To Contact Pulmonary Disease Mariel Mcgarry MD [address] [place] [address] Dr BARNES [address] [place] [address] Phone: tel: fax: [address] [address] Phone: tel: Referral ID Status Reason Start Date Expiration Date Visits Re quested Visits Authorized [id number] Closed 09/29/2020 09/29/2021 6 6 Encounter Details Date Type Department Care Team (Late st Contact Info) Description 09/29/2020 Transcribe Orders [facility] Pulmonary, Allergy and Critical Care Medicine [address] [place] [address] [place] [address] Mariel Mcgarry MD [address] [place] [address] Dr BARNES [address] [place] [address] Social History Tobacco Use Types Packs/Day Years [...] Description 04/14/2025 1:00 PM EST Office Visit [facility] [place] [address] Sybil Hernandez MD [address] [place] [address], [address] [address] [email or web address] Scheduled Referrals Name Type Priority Associated Diagnoses Order Schedule Ambulatory referral to [facility] Pulmonology Outpatient Referral Routine Ordered: 09/29/2020 documented as of this encounter Visit Diagnoses Not on filedocumented in this encounter Care Teams Stylist Apprentice Relationship Specialty Start Date End Date Mariel Mcgarry MD [address] [place] [address] Dr BARNES [address] [place] [address] PCP - General 02/21/17 Mariel Mcgarry MD [address] [place] [address] Dr BARNES [address] [place] [address] Historical LMR Provider 02/23/17 Sybil Hernandez MD [address] [place] [address], [address] [address] Historical LMR Provider 02/23/17 documented as of this encounter Additional Source Comments The information contained in this document represents components of the legal health record. It is not the complete legal health record.[facility]
--- OUTSIDE RECORDS SUMMARY | 2025-03-18 09:44 | XMS_ITS | Encounter Summary ---
Author Organization [facility] Address [address] [place] [phone] Care Team Providers Care Internet Marketing Manager Name Role Phone Mariel Mcgarry MD Primary Care Provid er Encounter Details Date Type Department Care Team (Late st Contact Info) Description 12/05/2024 Lab Requisition [facility] - Main Lab [address] [facility] [employer] [address] Yancy Barnett PA [address] [place] [address] Encounter for other general examination Social History [...] Procedure Name Priority Date/Time Associated Diagnosis Comments CBC WITH AUTO DIFFERENTIAL Routine 12/05/2024 5:57 AM EDT Encounter for other general examination CBC AND DIFFERENTIAL Routine 12/05/2024 5:57 AM EDT Encounter for other general examination MAGNESIUM Routine 12/05/2024 5:57 AM EDT Encounter for other general examination COMPREHENSIVE METABOLIC PANEL Routine 12/05/2024 5:57 AM EDT Encounter for other general examination documented in this encounter Results * (ABNORMAL) CBC auto differential (12/05/2024 5:57 AM EDT) [facility] WBC 11.8(H) 4.8 - 10.8 K/mcL LAB HEMETOLOGY METHOD 12/05/2024 9:[address] [facility] RBC 4.60 3.80 - 4.80 M/mcL LAB HEMETOLOGY METHOD 12/05/2024 9:[address] [facility] Hemoglobin 13.7 11.5 - 16.0 g/dL LAB HEMETOLOGY METHOD 12/05/2024 9:[address] [facility] Hematocrit 41.4 35.0 - 47.0 % LAB HEMETOLOGY METHOD 12/05/2024 9:[address] [facility] MCV 90.0 79.0 - 98.0 FL LAB HEMETOLOGY METHOD 12/05/2024 9:[address] [facility] MCH 29.8 27.0 - 32.0 pcg LAB HEMETOLOGY METHOD 12/05/2024 9:[address] [facility] MCHC 33.1 32.0 - 37.0 g/dL LAB HEMETOLOGY METHOD 12/05/2024 9:[address] [facility] RDW 13.3 11.0 - 15.0 % LAB HEMETOLOGY METHOD 12/05/2024 9:[address] [facility] Platelets 205 130 - 400 K/mcL LAB HEMETOLOGY METHOD 12/05/2024 9:[address] [facility] MPV 11.0 7.0 - 11.0 FL LAB HEMETOLOGY METHOD 12/05/2024 9:[address] [facility] NRBC 0.0 <1.0 % LAB HEMETOLOGY METHOD 12/05/2024 9:[address] [facility] NRBC Absolute 0.00 <0.10 K/mcL LAB HEMETOLOGY METHOD 12/05/2024 9:[address] [facility] Neutrophils Relative 74.3 % LAB HEMETOLOGY METHOD 12/05/2024 9:[address] [facility] Lymphocytes Relative 11.0 % LAB HEMETOLOGY METHOD 12/05/2024 9:[address] [facility] Monocytes Relative 12.1 % LAB HEMETOLOGY METHOD 12/05/2024 9:[address] [facility] Eosinophils Relative 2.0 % LAB HEMETOLOGY METHOD 12/05/2024 9:[address] [facility] Basophils Relative 0.3 % LAB HEMETOLOGY METHOD 12/05/2024 9:[address] [facility] Immature Granulocytes Relative 0.3 % LAB HEMETOLOGY METHOD 12/05/2024 9:[address] [facility] Neutrophils Absolute 8.76(H) 1.50 - 7.00 K/mcL LAB HEMETOLOGY METHOD 12/05/2024 9:[address] [facility] Lymphocytes Absolute 1.30 1.00 - 5.00 K/mcL LAB HEMETOLOGY METHOD 12/05/2024 9:[address] [facility] Monocytes Absolute 1.43(H) 0.20 - 1.00 K/mcL LAB HEMETOLOGY METHOD 12/05/2024 9:[address] [facility] Eosinophils Absolute 0.24 0.00 - 0.50 K/mcL LAB HEMETOLOGY METHOD 12/05/2024 9:[address] [facility] Basophils Absolute 0.04 0.00 - 0.20 K/mcL LAB HEMETOLOGY METHOD 12/05/2024 9:[address] [facility] Immature Granulocytes Absolute 0.04(H) 0.00 - 0.03 K/mcL LAB HEMETOLOGY METHOD 12/05/2024 9:16 AM EDT [facility] Blood Venous blood specimen / Unknown Venipuncture / Unknown 12/05/2024 5:57 AM EDT 12/05/2024 8:38 AM EDT Yancy VEE LAB BLOOD ORDERABLES Final Resul t [facility] [address] [place] [address], [place] [phone] * Magnesium (12/05/2024 5:57 AM EDT) Magnesium 1.9 1.9 - 2.6 mg/dL LAB CHEMISTRY METHOD 12/05/2024 9:39 AM EDT [facility] Blood Venous blood specimen / Unknown Venipuncture / Unknown 12/05/2024 5:57 AM EDT 12/05/2024 8:38 AM EDT Yancy VEE LAB BLOOD ORDERABLES Final Resul t [facility] [address] [place] [address], [place] [phone] * (ABNORMAL) Comprehensive metabolic panel (12/05/2024 5:57 AM EDT) Sodium 131(L) 133 - 145 mmol/L LAB CHEMISTRY METHOD 12/05/2024 9:40 AM EDT [facility] Potassium 4.3 3.5 - 5.5 mmol/L LAB CHEMISTRY METHOD 12/05/2024 9:40 AM EDT [facility] Chloride 97 96 - 110 mmol/L LAB CHEMISTRY METHOD 12/05/2024 9:40 AM EDT [facility] CO2 25 21 - 32 mmol/L LAB CHEMISTRY METHOD 12/05/2024 9:40 AM EDT [facility] Anion Gap 9 3 - 11 LAB CHEMISTRY METHOD 12/05/2024 9:[address] [facility] Glucose 92 70 - 100 mg/dL LAB CHEMISTRY METHOD 12/05/2024 9:[address] [facility] BUN 11 5 - 25 mg/dL LAB CHEMISTRY METHOD 12/05/2024 9:[address] [facility] Creatinine 0.50 0.50 - 1.10 mg/dL LAB CHEMISTRY METHOD 12/05/2024 9:[address] [facility] eGFR 98 >=60 mL/min/1. 73m2 LAB CHEMISTRY METHOD 12/05/2024 9:[address] [facility] Comment:Calculation based on the Chronic Kidney Disease Epidemiology Collaboration (CKD-EPI) equation refit without adjustment for race. BUN/Creatinine Ratio 22.0 LAB CHEMISTRY METHOD 12/05/2024 9:[address] [facility] Calcium 9.1 8.5 - 10.5 mg/dL LAB CHEMISTRY METHOD 12/05/2024 9:[address] [facility] AST (SGOT) 32 10 - 42 unit/L LAB CHEMISTRY METHOD 12/05/2024 9:[address] [facility] ALT (SGPT) 45 10 - 60 unit/L LAB CHEMISTRY METHOD 12/05/2024 9:[address] [facility] Alkaline Phosphatase 176(H) 42 - 121 unit/L LAB CHEMISTRY METHOD 12/05/2024 9:[address] [facility] Total Protein 7.0 6.0 - 8.0 g/dL LAB CHEMISTRY METHOD 12/05/2024 9:[address] [facility] Albumin 3.0(L) 3.2 - 5.0 g/dL LAB CHEMISTRY METHOD 12/05/2024 9:[address] [facility] Total Bilirubin 0.5 0.0 - 1.4 mg/dL LAB CHEMISTRY METHOD 12/05/2024 9:[address] [facility] Blood Venous blood specimen / Unknown Venipuncture / Unknown 12/05/2024 5:57 AM EDT 12/05/2024 8:38 AM EDT us Yancy VEE LAB BLOOD ORDERABLES Final Resul t [facility] ([facility] [address] [place] [address], documented in this encounter Visit Diagnoses Diagnosis Encounter for other general examination documented in this encounter Care Teams Internet Marketing Manager Relationship Specialty Start Date End Date Mariel Mcgarry MD PCP - General Endocrinology 07/30/24 documented as of this encounter
--- OUTSIDE RECORDS SUMMARY | 2025-03-18 09:44 | XMS_ITS | Clinical Summary ---
Author Organization [facility] Address [address] [place] [address] Care Team Providers Care Roller Helper Name Role Phone Mariel Yepez MD Primary [...] Family Unable to Define Medium 02/14/2023 Medications fluticasone-ume clidinium-vilan terol (TRELEGY ELLIPTA) 200-62.5-25 mcg/act inhaler Inhale 1 puff daily. Active dupilumab (DUPIXENT) 300 MG/2ML prefilled syringe Inject 300 mg under the skin every 14 days (2 weeks). Active amoxicillin-cla vulanate (AUGMENTIN) 500-125 MG per tablet Take 1 [...] before meals and nightly. Active pancrelipase (CREON) [address] Particles capsule Take 36,000 [...] Unable or Declines to Respond No 03/22/2023 Comments Unknown Sex and Gender Information Value Date Recorded Sex Assigned at Not on file Legal Sex Female 2:51 PM EDT Gender Identity Not on file Sexual Orientation Not on file Last Filed Vital Signs Vital Sign Reading Time Taken Comments Blood Pressure 122/70 03/20/2023 10:42 AM EST Pulse 66 03/20/2023 10:42 AM EST Temperature 36.9 C (98.4 F) 03/20/2023 10:42 AM EST Respiratory Rate 18 03/20/2023 10:42 AM EST Oxygen Saturation 97% 03/20/2023 10:42 AM EST Inhaled Oxygen Concentration - - Weight - - Height - - Body Mass Index - - Plan of Treatment Health Maintenance Due Date Last Done Comments Advance Care Planning 1950 Hepatitis C Virus Screening 1950 COVID-19 Vaccine (#1) 1954 DTaP/Tdap/Td Vaccines (1 - Tdap) 1968 Pneumococcal Vaccines 50+ (1 of 2 - PCV) 1968 Zoster (Shingles) Vaccine (1 of 2) 1968 Mammogram 1989 Colonoscopy 1994 DXA Bone Density (Females,Ages 65 and older) 2014 RSV Vaccine 50 years and older and Patients (1 - 1-dose 75+ series) 2024 Influenza Vaccine 12/04/2024 01/13/2020, 02/04/2017, 02/18/2014 Hepatitis B Vaccines Aged Out No long er eligible based on patient's age to complete this topic Insurance MEDICARE PART A & B [address] [id number] Care Teams Roller Helper Relationship Specialty Start Date End Date Mariel Yepez MD [address] [place] [address] [place] [address] PCP - General Endocrinology 02/12/23
--- OUTSIDE RECORDS SUMMARY | 2025-03-18 09:44 | XMS_ITS | Encounter Summary ---
Author Organization [facility] Address Formerly [facility] [address] [phone] Phone Care Team Providers Care Pharmacy Helper Name Role Phone Mariel Mcgarry MD Primary Care Prov ider Mariel Mcgarry MD Unavailable + Sybil Hernandez MD Unavailable [phone] Encounter Details Date Type Department Care Team (Late st Contact Info) Description 10/11/2023 Transcribe Orders [facility] Specimen Processing [address] [place] [address] Mariel Mcgarry MD [address] [place] [address] [place] [address] Social History Tobacco Use Types Packs/Day Years Used Date Smoking Tobacco: Never Smokeless Tobacco: Never Alcohol Use Standard Drinks/Week Comments Yes 1 (1 standard drink = 0.6 oz pur e alcohol) Nightly Education Answer Date Recorded Are you interested in more education? Not on argelia e 08/31/2022 Are you concerned about learning? Not on file 08/31/2022 No 08/31/2022 No 08/31/2022 Digital Access Answer Date Recorded No 09/25/2022 No 09/25/2022 Reliable internet access at home? Not on file 09/25/2022 Device with a working camera? Not on file Comments Unknown Sex and Gender Information Value Date Recorded Sex Assigned at Not on file Legal Sex Female 10:37 PM EDT Gender Identity Not on file Sexual Orientation Not on file documented as of this encounter Plan of Treatment Upcoming Encounters Date Type Department Care Team (Late st Contact Info) Description 04/14/2025 1:00 PM EST Office Visit [facility] [place] [address] Sybil Hernandez MD [address] [place] [address] documented as of this encounter Visit Diagnoses Not on filedocumented in this encounter Care Teams Pharmacy Helper Relationship Specialty Start Date End Date Mariel Mcgarry MD [address] [place] [address] Dr BARNES [address] [place] [address] PCP - General 02/21/17 Mariel Mcgarry MD [address] [place] [address] Dr BARNES [address] [place] [address] Historical LMR Provider 02/23/17 Sybil Hernandez MD [address] [place] [address] Historical LMR Provider 02/23/17 documented as of this encounter Additional Source Comments The information contained in this document represents components of the legal health record. It is not the complete legal health record.[facility]
--- OUTSIDE RECORDS SUMMARY | 2025-03-18 09:44 | XMS_ITS | Encounter Summary ---
Author Organization [facility] Address [address] [facility] [address] [place] [address] Phone Care Team Providers Care Groundskeeper Supervisor Name Role Phone Mariel Mcgarry MD Primary Care Prov ider Mariel Mcgarry MD Unavailable + Sybil Hernandez MD Unavailable [phone] Encounter Details Date Type Department Care Team (Late st Contact Info) Description 09/01/2020 Telephone [employer] [facility] Rheumatology [address] [place] [address] [place] [address] Sybil Hernandez MD [address] [place] [address], [address] [place] [address] [email or web address] Social History Tobacco Use Types Packs/Day Years [...] Description 04/14/2025 1:00 PM EST Office Visit [employer] [facility] Rheumatology [address] [place] [address] [place] [address] Sybil Hernandez MD [address] [place] [address], [address] [place] [address] [email or web address] documented as of this encounter Visit Diagnoses Not on filedocumented in this encounter Care Teams Groundskeeper Supervisor Relationship Specialty Start Date End Date Mariel Mcgarry MD [address] [place] [address] Dr BARNES [address] [place] [address] PCP - General 02/21/17 Mariel Mcgarry MD [address] [place] [address] Dr BARNES [address] [place] [address] Historical LMR Provider 02/23/17 Sybil Hernandez MD [address] [place] [address], [address] [address] [email or web address] Historical LMR Provider 02/23/17 documented as of this encounter Additional Source Comments The information contained in this document represents components of the legal health record. It is not the complete legal health record.[facility]
--- OUTSIDE RECORDS SUMMARY | 2025-03-18 09:44 | XMS_ITS | Encounter Summary ---
Author Organization [facility] Address [address] [place] [phone] Care Team Providers Care Men'S Leather Dress Belt Maker Name Role Phone Mariel Mcgarry MD Primary Care Provid er Encounter Details Date Type Department Care Team (Late st Contact Info) Description 12/07/[address] [facility] - Main Lab [address] [place] [address] Yancy Barnett PA [address] [place] [address] Encounter for other general examination [...] Procedure Name Priority Date/Time Associated Diagnosis Comments BASIC METABOLIC PANEL Routine 12/07/2024 5:29 AM EDT Encounter for other general examination documented in this encounter Results * Basic metabolic panel (12/07/2024 5:29 AM EDT) Sodium 134 133 - 145 mmol/L LAB CHEMISTRY METHOD 12/07/2024 1:[address] [facility] Potassium 4.3 3.5 - 5.5 mmol/L LAB CHEMISTRY METHOD 12/07/2024 1:[address] [facility] Chloride 101 96 - 110 mmol/L LAB CHEMISTRY METHOD 12/07/2024 1:[address] [facility] CO2 24 21 - 32 mmol/L LAB CHEMISTRY METHOD 12/07/2024 1:34 PM [facility] Anion Gap 9 3 - 11 LAB CHEMISTRY METHOD 12/07/2024 1:34 PM [facility] Glucose 88 70 - 100 mg/dL LAB CHEMISTRY METHOD 12/07/2024 1:34 PM [facility] BUN 20 5 - 25 mg/dL LAB CHEMISTRY METHOD 12/07/2024 1:34 PM [facility] Creatinine 0.56 0.50 - 1.10 mg/dL LAB CHEMISTRY METHOD 12/07/2024 1:34 PM [facility] eGFR 95 >=60 mL/min/1. 73m2 LAB CHEMISTRY METHOD 12/07/2024 1:34 PM [facility] Comment:Calculation based on the Chronic Kidney Disease Epidemiology Collaboration (CKD-EPI) equation refit without adjustment for race. BUN/Creatinine Ratio 35.7 LAB CHEMISTRY METHOD 12/07/2024 1:34 PM [facility] Calcium 8.7 8.5 - 10.5 mg/dL LAB CHEMISTRY METHOD 12/07/2024 1:34 PM [facility] Blood Venous blood specimen / Unknown Venipuncture / Unknown 12/07/2024 5:29 AM EDT 12/07/2024 10:21 AM EDT us Yancy VEE LAB BLOOD ORDERABLES Final Resul t [facility] [address] [place] [address], documented in this encounter Visit Diagnoses Diagnosis Encounter for other general examination documented in this encounter Care Teams Men'S Leather Dress Belt Maker Relationship Specialty Start Date End Date Mariel Mcgarry MD PCP - General Endocrinology 07/30/24 documented as of this encounter
--- OUTSIDE RECORDS SUMMARY | 2025-03-18 09:44 | XMS_ITS | Encounter Summary ---
Author Organization [facility] Address [address] [place] [address] Phone Care Team Providers Care Chief Airline Radio Operator Name Role Phone Mariel Mcgarry MD Primary Care Prov ider Mariel Mcgarry MD Unavailable + Sybil Hernandez MD Unavailable [phone] Encounter Details Date Type Department Care Team (Latest Contact Info) Description 03/06/2022 Transcribe Orders [facility] PFT Lab [address] [place], [place] [phone] Wiliam De Los Santos MD, MS [address] [id number] [email or web address] Advice given about 2019 novel coronavirus by telephone (Primary Dx) Social History Tobacco Use Types Packs/Day Years [...] Description 04/14/2025 1:00 PM EST Office Visit [facility] Rheumatology [address] [place] [address] Sybil Hernandez MD [address] [place] [address], [address] [address] [email or web address] documented as of this encounter Results * COVID-19 PCR Order (03/11/2022 12:38 PM EST) COVID-19 Comment [id number] [facility] COVID Testing Status Specimen received in analyzing lab. Results should be available within 24 to 48 hrs. [facility] Other 03/11/2022 12:3 8 PM EST 03/11/2022 2:10 PM EST us Wiliam De Los Santos MD, MS LAB GENERAL ORDERABLES F inal Result Performing Organization Address City/State/[facility] Co de Phone Number [facility] [address] [place] [phone] [place] [address] [address] [place] [address] documented in this encounter Visit Diagnoses Diagnosis Advice given about 2019 novel coronavirus by telephone- Primary documented in this encounter Care Teams Chief Airline Radio Operator Relationship Specialty Start Date End Date Mariel Mcgarry MD [address] [place] [address]ARNES [address] [place] [address] PCP - General 02/21/17 Mariel Mcgarry MD [address] [place] [address] [address] BARNES [address] [place] [address] Historical LMR Provider 02/23/17 Sybil Hernandez MD [address] [place] [address], [address] [address] [email or web address] Historical LMR Provider 02/23/17 documented as of this encounter Additional Source Comments The information contained in this document represents components of the legal health record. It is not the complete legal health record.[facility]
--- OUTSIDE RECORDS SUMMARY | 2025-03-18 09:44 | XMS_ITS | Encounter Summary ---
Author Organization [facility] Address [address] [facility] [address] [place] [address] Phone Care Team Providers Care Growth Hacker Name Role Phone Mariel Mcgarry MD Primary Care Prov ider Mariel Mcgarry MD Unavailable + Sybil Hernandez MD Unavailable [phone] Encounter Details Date Type Department Care Team (Late Contact Info) Description 11/03/2020 Ancillary Orders [facility],Outside Imaging [address] [place], [place] [id number] System, Provider Not In, [place] [address] Social History Tobacco Use Types Packs/Day Years [...] Description 04/14/2025 1:00 PM EST Office Visit [facility] Rheumatology [address] [place] [address] Sybil Hernandez MD [address] [facility], [address] [place] [address] [email or web address] documented as of this encounter Results * MRI Outside Upper Extremity (No Interpretation) (09/13/2020 12:00 AM EDT) Narrative SYSTEMGENERATED, DOCUMENTATION - 11/03/2020 9:30 AM EDT This study is for PACS storage only and not for interpretation. us Provider Not In System PhD IMG OUTSIDE IMAGING W /OUT INTERPRETATION Final Result documented in this encounter Visit Diagnoses Not on filedocumented in this encounter Care Teams Growth Hacker Relationship Specialty Start Date End Date Mariel Mcgarry MD [address] [place] [address] Dr BARNES [address] [place] [address] [facility] - General 02/21/17 Mariel Mcgarry MD [address] [place] [address] [place] [address] Historical LMR Provider 02/23/17 Sybil Hernandez MD [address] [place] [address], [facility] [address] [place] [address] [email or web address] Historical LMR Provider 02/23/17 documented as of this encounter Additional Source Comments The information contained in this document represents components of the legal health record. It is not the complete legal health record.[facility]
--- OUTSIDE RECORDS SUMMARY | 2025-03-18 09:45 | XMS_ITS | Encounter Summary ---
Author Organization [facility] Address [address] [place] [address] Phone Care Team Providers Care Loading Rack Supervisor Name Role Phone Mariel Mcgarry MD Primary Care Prov ider Mariel Mcgarry MD Unavailable + Sybil Hernandez MD Unavailable [phone] Encounter Details Date Type Department Care Team (Late Contact Info) Description 03/14/2021 Ancillary Orders [facility],Outside Imaging [address] [place], [place] [id number] System, Provider [place] In, [place] [address] Social History Tobacco Use Types Packs/Day Years [...] Description 04/14/2025 1:00 PM EST Office Visit [facility] Rheumatology [address] [place] [address] Sybil Hernandez MD [address], [address] [place] [address] [email or web address] documented as of this encounter Results * CT Chest Outside (No Interpretation) (06/26/2017 12:00 AM EST) Narrative SYSTEMGENERATED, DOCUMENTATION - 03/14/2021 2:18 PM EST This study is for PACS storage only and not for interpretation. us Provider Not In System PhD IMG OUTSIDE IMAGING W /OUT INTERPRETATION Final Result documented in this encounter Visit Diagnoses Not on filedocumented in this encounter Care Teams Loading Rack Supervisor Relationship Specialty Start Date End Date Mariel Mcgarry MD [address] [place] [address] [address] [place] [address] [facility] - General 02/21/17 Mariel Mcgarry MD [address] [place] [address] [place] [address] Historical LMR Provider 02/23/17 Sybil Hernandez MD [address] [place] [address], [address] [place] [address] [email or web address] Historical LMR Provider 02/23/17 documented as of this encounter Additional Source Comments The information contained in this document represents components of the legal health record. It is not the complete legal health record.[facility]
--- OUTSIDE RECORDS SUMMARY | 2025-03-18 09:45 | XMS_ITS | Continuity of Care Document ---
Author Organization [facility] [address] [place] [address] Phone [phone] Care Team Providers Care Credit Collections Clerk Name Role Phone Mariel Mcgarry M.D. Care Team Informati on Trimmer Hand [phone] Problems Active Problems Provider Date Primary hypothyroidism [...] 06/01/2022 Fibromyalgia Mariel shultz M.D. Onset: 06/01/2022 Ogcjk-3-qxjljyaixjh deficiency Mariel Mcgarry M.D. 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 08/16/2023 Diltiazem HCL YI019kg Caps ER 24HR Take 1 Capsule By Mouth Daily Mariel Mcgarry M.D. 09/12/2022 Citracal Calcium +D3 Pojcisrswxl055-81-195dp -mg-Unit Tablets ER 24HR 1 by mouth twice a day Mariel Mcgarry M.D. Pantoprazole Zupyvh48eb Tablets 1 by mouth every day 90tabs Mariel Mcgarry M.D. Whbshcg83mn Tablets 1 by mouth every day Mariel Mcgarry M.D. Multivitamin Adults 50+Adlt 50+ Tablets 1 by mouth every day Mariel Mcgarry M.D. Fish Uhp5831ei Capsules 1 by mouth twice a day Mariel Mcgarry M.D. Vitamin C500mg Chewtabs 1 by mouth twice a day Mariel Mcgarry M.D. Sjlhzelz612sp/2ML Solution Pen-Inject every 2 weeks Mariel Mcgarry M.D. Aspirin Ec Low Xoty33vt Tablets 1 by mouth every day Mariel Mcgarry M.D. Glucosamine Chondroitin 1500 Nvnxzox7945Gvd Capsules 1 by mouth twice a day Mariel Mcgarry M.D. L-Rmnxbh013fy Capsules 1 bid Ki flynn Mcgarry M.D. Edjtbcihm562hw Tablets 1 by mouth once a day Mariel Mcgarry M.D. Vitamin V757fii (1000 Ut) Capsules 2 by mouth every day 100caps Mariel Mcgarry M.D. ProbioticTablets 1 by mouth every day Mariel Mcgarry M.D. Amoxicillin/Clavulanate Cjgiasust859-901in Tablets Take 1 Tablet By Mouth Daily Denilson Hernandez Mycophenolate Hwrndrh386qu Tablets Take 1 Alternating With 2 In Am, 1 In PM Unknown Zexmf75754-953417Yhwd Caps DR Topete Take 1 Capsule By Mouth Four Times Daily With Meals And Snacks Aaron Lizama MD Terazosin HCL1mg Capsules Take 1 Capsule By Mouth AT Bedtime Denilson Hernandez Ytcvjwoyphc07wi Tablets Take 1 Tablet By Mouth Every Day as Directed 90tabs Mariel Mcgarry M.D. Montelukast Rbyrlj01uh Tablets 1 qd Unknown Ciiuljoisb386tc Capsules Take 1 in the morning, 2 at night Unknown Amitriptyline TSC91gw Tablets Take 4 tablets daily Unknown Methenamine Qcugkluru9mb Tablets Take 1 Tablet By Mouth Twice Daily Denilson Hernandez Trelegy Ywxdnql903-69.5-25mcg/A ct Aerosol 1 puff qd Ignacio Magaña DO Metoclopramide PTI76yk Tablets Take 1 tablet at mealtimes and at bedtime Aaron Lizama MD Vital Signs Date Vital Result Comment 11/20/2024 2:03pm BP Systolic 118 mmHg BP Diastolic 70 mmHg Heart Rate 83 /min Height 65 inches 5'5 Weight 184.31 lb BMI (Body Mass Index) 30.7 kg/m2 Results Test Acquired Date Facility Test Result H/L Range Note Hemoglobin A1c 11/20/2024 Inhouse Hemoglobin A1c 5.6% Glucose Fingerstick 11/20/2024 Inhouse Glucose Fingerstick 127 Comp. Metabolic Panel (14) 07/09/2024 [facility] Glucose [...] Hemoglobin A1c 07/09/2024 Inhouse Hemoglobin A1c 5.6 TSH Rfx on Abnormal to Free T4 03/25/2024 [facility] TSH Rfx on Abnormal to Free T4 3.060 uIU/mL 0.450-4. 500 Lipid Panel 03/25/2024 [facility] Cholesterol, Total 180 mg/dL 100-199 Triglycerides 75 mg/dL 0-149 HDL Cholesterol 84 mg/dL >39 VLDL Cholestero l Wilmer 14 mg/dL 5-40 LDL Chol Calc ([facility]) 82 mg/dL 0-99 LDL Calc Comment: TNP Hemoglobin A1c 03/06/2024 Inhouse Hemoglobin A1c 5.4% Glucose Fingerstick 03/06/2024 Inhouse Glucose Fingerstick 109 TSH RFX On Abnormal To Free T4 03/06/2024 [facility] TSH RFX On Abnormal To Free T4 <pending> TSH Rfx on Abnormal to Free T4 11/21/2023 [facility] TSH RFX On Abnormal To Free T4 6.390 uIU/mL High 0.450-4. 500 T4,Free ([facility]) 1.66 ng/dL 0.82-1.7 7 TSH RFX On Abnormal To Free T4 09/06/2023 [facility] TSH RFX On Abnormal To Free T4 <pending> Hemoglobin A1c 09/04/2023 Inhouse Hemoglobin A1c 5.6 Glucose Fingerstick 09/04/2023 Inhouse Glucose Fingerstick 95 TSH Rfx on Abnormal to Free T4 09/04/2023 [facility] TSH RFX On Abnormal To Free T4 6.080 uIU/mL High 0.450-4. 500 T4,Free (Direct) 1.53 ng/dL 0.82-1.7 7 Lipid Panel 09/04/2023 [facility] Cholesterol, Total 183 mg/dL 100-199 Triglycerides 62 mg/dL 0-149 HDL Cholesterol 77 mg/dL >39 VLDL Cholestero l Wilmer 12 mg/dL 5-40 LDL Chol Calc ([facility]) 94 mg/dL 0-99 Comment: TNP Comp. Metabolic Panel (14) 09/04/2023 [facility] Glucose [...] IU/L 0-40 Alt (SGPT) 23 IU/L 0-32 TSH With Reflex To FT4 09/18/2022 [facility] TSH With Reflex To FT4 2.98 uIU/mL (0.4-4.2 ) Lipid Panel 09/18/2022 [facility] Cholesterol, Total 174 mg/dL (<200) Triglyceride 41 mg/dL (<150) HDL Chol 77 mg/dL (>39) LDL Cholesterol , Calculated 89 mg/dL (0-130) Non HDL Cholesterol (Calc) 97 mg/dL (<160) Glucose Fingerstick 09/12/2022 Inhouse Glucose Fingerstick 89 Hemoglobin A1c 09/12/2022 Inhouse Hemoglobin A1c 5.4% TSH With Reflex To FT4 06/01/2022 [facility] TSH With Reflex To FT4 0.19 uIU/mL Low (0.4-4.2 ) Free T4 06/01/2022 [facility] Free T4 1.77 ng/dL (0.70-1. [...] Ernandez Procedures Date Code Description Status 07/09/2024 29082 Collection Of Venous Blood B y Venipuncture Completed 09/04/2023 28198 Collection Of Venous Blood B y Venipuncture Completed 06/01/2022 38097 Collection Of Venous Blood B y Venipuncture Completed Medical Devices Description No Information Available Encounters Type Date Location Provider Dx Diagnosis Office Visit 03/12/2025 1:48p Main Office Mariel Mcgarry M.D. I10 Essential (primary) hypertension E78.00 Pure hypercholestero lemia, unspecified Assessments Date Code Description Provider 03/12/2025 I10 Essential (primary) hyperten christie Mariel Mcgarry M.D. 03/12/2025 E78.00 Pure hypercholesterolemia, u nspecified Mariel Mcgarry M.D. Plan of Treatment Future Appointment(s):* 03/24/2025 2:15 pm - Mariel Mcgarry M.D. 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
--- OUTSIDE RECORDS SUMMARY | 2025-03-18 09:45 | XMS_ITS | Clinical Summary ---
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 Name Role Phone Mariel Mcgarry MD Primary Care Prov ider Mariel Mcgarry MD Unavailable + Sybil Hernandez MD Unavailable [phone] Allergies Active Allergy Reactions Criticality Noted Date Comments Adhesive Rash Low 07/25/2017 Aloe Rash Low 12/02/2019 Benralizumab Shortness Of Breath,Headaches,Di zziness,Angina High 03/07/2020 Tolerates Dupixent Cephalexin Rash Low 03/27/2017 Levofloxacin Hives 03/27/2017 Welts on Chest, Ears Red Nitrofurantoin Monohyd/M-Cryst Rash Low 05/23/2017 Back of Throat White Spots, Cheeks had white spots Nsaids (Non-Steroidal Anti-Inflammatory Drug) Rash Low 03/27/2017 Carisoprodol Rash Low 03/27/2017 Tobramycin Swelling 03/27/2017 Medications gabapentin (NEURONTIN) 300 MG capsule Take 300 mg by mouth as directed. 1 CAP QAM, 2 CAPS at lunchtime, 3 CAPS every evening Active simvastatin (ZOCOR) 10 MG tablet Take 10 mg by mouth nightly. Active glucosamine HCl/chondroitin noguera (GLUCOSAMINE-CHOND ROITIN ORAL) Take 1 capsule by mouth 2 (two) times a day. 1500mg/1200mg Active cholecalciferol (VITAMIN D3) 1,000 unit tablet Take 1,000 Units by mouth 2 (two) times a day. Active OMEGA 0-JXV-KYW-FISH OIL ORAL Take 1 capsule by mouth daily. Active Ca cit-D3-mag#11-zinc -eryf-lnz-ihh (CALTRATE 600+D) 600 mg calcium- 800 unit-50 mg Tab Take 1 tablet by mouth 2 (two) times a day. 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 Active bacillus coagulans-inulin 1 billion-250 cell-mg Cap Take 250 mg by mouth daily. Active immun glob G,IgG,/gly/IgA ov50 (IMMUNE GLOBULIN, HUMAN,) SolnIndications:35 grams once a month Indications: 35 grams once a month Active pancrelipase, xywzjl-lzhucjtd-wx ylase, (CREON) 36,000-114,000- 180,[address] capsuleIndications :with meals and snacks 36,000 units of lipase 3 (three) times a day with meals. Indications: with meals and snacks Active ascorbic acid, vitamin C, (VITAMIN C) 500 MG tablet Take 1,000 mg by mouth daily. Active aspirin 81 MG EC tablet Take 81 mg by mouth daily. Active lysine 500 mg TabIndications:Oth er forms of systemic lupus erythematosus, unspecified organ involvement status Take 1 tab twice daily 180 tablet 3 8 Active cranberry fruit 400 mg Tab Take 650 mg by mouth 2 (two) times a day. Active dupilumab (DUPIXENT PEN) 300 mg/2 mL PnIj Inject under the skin every 14 (fourteen) days. Active amitriptyline (ELAVIL) 10 MG tablet Take 40 mg by mouth nightly at bedtime. 0 Active terazosin (HYTRIN) 1 MG capsule Take 1 mg by mouth nightly at bedtime. 1 Active METHENAMINE HIPPURATE ORAL Take 100 mg by mouth 2 (two) times a day with meals. Active amoxicillin-clavul anate (AUGMENTIN) 500-125 mg per tablet Take 1 tablet by mouth daily. 1 Active EPINEPHrine 0.3 mg/0.3 mL auto-injector 1 Active TRELEGY ELLIPTA 200-62.5-25 mcg inhaler Inhale 1 puff into the lungs daily. 2 Active metoclopramide HCl (REGLAN) 10 MG tablet Take 10 mg by mouth 4 (four) times a day as needed. 2 Active XARELTO 20 mg Tab Take 20 mg by mouth every evening. 3 Active dilTIAZem (CARDIZEM CD) 240 MG 24 hr capsule Take 1 capsule by mouth every morning. 3 Active SYNTHROID 175 mcg tablet Take 1 tablet by mouth every morning. 2 on sundays 3 Active albuterol 90 mcg/actuation inhalerIndications :Severe persistent asthma without complication Inhale 2 puffs into the lungs every 6 (six) hours as needed for wheezing. 56 g 3 3 Active pantoprazole (PROTONIX) 40 MG tablet Take 1 tablet by mouth every morning. 4 Active docusate sodium (COLACE ORAL) Take by mouth 2 (two) times a day as needed. Active montelukast (SINGULAIR) 10 mg tablet TAKE 1 TABLET(10 MG) BY MOUTH EVERY NIGHT AT BEDTIME 90 tablet 3 5 Active tiZANidine (ZANAFLEX) 4 MG tabletIndications: Primary osteoarthritis involving multiple joints TAKE 1 TABLET(4 MG) BY MOUTH EVERY NIGHT AT BEDTIME 30 tablet 2 5 Active mycophenolate mofetil (CELLCEPT) 500 mg tabletIndications: Other systemic lupus erythematosus with lung involvement TAKE 2 TABLETS BY MOUTH EVERY MORNING AND 1 TABLET EVERY AFTERNOON 270 tablet 1 5 Active Active Problems Problem Noted Date Diagnosed Date Class 1 obesity due to exces s calories with serious comorbidity and body mass index (BMI) of 30.0 to 30.9 in adult 10/28/2024 Assessment & Plan (11/22/2024 10:03 PM EDT): Congratulations on losing 3 pounds from 187 on 06/25/2024 down to 184 today and keep it off. Continue diligent portion control. Limit concentrated sugars, saturated fats and calories in the diet. Keep well-hydrated. If unable to achieve expected goal consider formal dietary/nutritional support. Isolated proteinuria 11/14/2023 GERD (gastroesophageal reflux disease) Assessment & Plan (10/28/2024 1:10 PM EDT): Avoid late, large, spicy meals. Keep headboard elevated at 45 angle for nighttime. Continue Protonix 40 mg every morning Assessment & Plan (06/25/2024 12:54 PM EST): Avoid late, large, spicy meals. Keep headboard elevated at 45 angle for nighttime. Continue Protonix 40 mg every morning Assessment & Plan (02/20/2024 1:10 PM EDT): Avoid late, large, spicy meals. Keep headboard elevated at 45 angle for nighttime. Continue Protonix 40 mg every morning Assessment & Plan (11/20/2023 6:19 PM EDT): Avoid late, large, spicy meals. Keep headboard elevated at 45 angle for nighttime. Carefully continue Protonix every morning and follow-up with hearing care practitioner as scheduled. Assessment & Plan (05/29/2022 3:57 PM EST): Avoid late, large, spicy meals. Keep headboard elevated at 45 angle for nighttime. Carefully continue Nexium twice daily and follow-up with hearing care practitioner as scheduled. Assessment & Plan (03/26/2022 11:10 AM EST): Adequate control of reflux symptoms is important in the setting of underlying obstructive lung disease. Assessment & Plan (12/18/2021 11:57 AM EDT): She is followed closely by GI for management of esophageal strictures, delayed gastric emptying and microaspiration. Will defer their expertise. Assessment & Plan (11/11/2021 8:39 PM EDT): Avoid late, large, spicy meals. Keep headboard elevated at 45 angle for nighttime. Continue Nexium 20 mg twice daily and follow closely with her GI, missileman and jumpbasting facing baster specialists as scheduled. Assessment & Plan (09/12/2021 2:47 PM EDT): Will increase PPI to twice daily. She will follow-up with GI as scheduled for further testing. Nnape-4-stkconhwfio deficiency 12/09/2020 Overview (03/13/2021): PI*ZZ, level 31 mg/dL on 01/10/21. Normal PFT. Not on supplementation. Assessment & Plan (10/28/2024 1:11 PM EDT): Continue close monitoring with missileman as scheduled. Assessment & Plan (06/25/2024 1:05 PM EST): Continue close monitoring with missileman as scheduled. Assessment & Plan (02/20/2024 12:51 PM EDT): Continue close monitoring with missileman as scheduled. Assessment & Plan (11/14/2023 10:35 AM EDT): Continue close monitoring with missileman as scheduled. Assessment & Plan (08/08/2023 9:53 AM EDT): Continue close monitoring with missileman as scheduled. Assessment & Plan (09/28/2022 11:44 AM EDT): Continue close monitoring with missileman as scheduled. Assessment & Plan (09/25/2022 11:55 AM EDT): No supplementation indicated given persistently normal pulmonary function studies. We will repeat PFT in March at an annual interval and reconvene thereafter. Assessment & Plan (05/25/2022 11:24 AM EST): Continue close monitoring with missileman as scheduled. Assessment & Plan (03/26/2022 11:28 AM EST): Given normal PFT, no supplementation indicated at this time. Continue to monitor annual PFT. Assessment & Plan (12/18/2021 11:56 AM EDT): We will plan repeat PFT in a few months (already ordered) and reconvene thereafter. Assessment & Plan (11/11/2021 8:40 PM EDT): Continue close monitoring with missileman as scheduled. Assessment & Plan (09/12/2021 2:47 PM EDT): Repeat PFT in February at an annual interval Assessment & Plan (08/01/2021 5:55 PM EDT): Continue close monitoring with neurologist as scheduled. Assessment & Plan (06/15/2021 11:25 AM EST): We will plan to repeat PFT in February at an annual interval. No indication for supplementation at this time. Assessment & Plan (03/13/2021 3:38 PM EST): I reviewed with her recommendations from professional society guidelines, which given her completely normal PFT and stability over years, suggest that supplementation is not indicated in order current context. We will plan repeat PFT next February at an annual interval. Assessment & Plan (12/09/2020 3:45 PM EDT): Given the fact that her brother has the ZZ phenotype and her son has the MZ phenotype, I suspect she has some degree of alpha-1 antitrypsin deficiency. We will obtain an alpha-1 antitrypsin phenotype and level. If she is severely deficient with a ZZ phenotype, based on chest CT, PFT and clinical review, we will consider supplementation. Pain of right sternoclavicular joint 05/16/2020 Assessment & Plan (11/08/2020 7:21 AM EDT): MRI of right shoulder focused on right sternoclavicular joint reveals fluid within the SC joint that she is willing to have aspirated and cultured to make sure there is no occult infection. Order for procedure by interventional radi[facility]. Assessment & Plan (08/17/2020 11:32 PM EDT): Due to ongoing pain & swelling with longstanding steroid therapy and CellCept therapy I am requesting MRI to make sure that she does not have occult infection or osteonecrosis. She is getting it at [facility] in [place]-see order in media section of [facility]. Anticoagulated 03/07/2020 Assessment & Plan (10/28/2024 1:10 PM EDT): Continue Xarelto 20 mg every evening Assessment & Plan (06/25/2024 12:54 PM EST): Continue Xarelto 20 mg every evening Assessment & Plan (02/20/2024 12:51 PM EDT): Avoid falls, injuries and cuts. Monitor for excessive bruising and bleeding. Assessment & Plan (11/14/2023 10:35 AM EDT): Avoid falls, injuries and cuts. Monitor for excessive bruising and bleeding. Assessment & Plan (08/08/2023 9:53 AM EDT): Avoid falls, injuries and cuts. Monitor for excessive bruising and bleeding. Assessment & Plan (09/28/2022 11:44 AM EDT): Avoid falls, injuries and cuts. Monitor for excessive bruising and bleeding. Assessment & Plan (05/25/2022 11:25 AM EST): Avoid falls, injuries and cuts. Monitor for excessive bruising and bleeding. Assessment & Plan (10/27/2021 12:16 PM EDT): Continue Coumadin as prescribed and follow closely with anticoagulation services. Aim at INR 2.0-3.0. Assessment & Plan (07/27/2021 2:43 PM EDT): Continue Coumadin as prescribed and follow closely with anticoagulation services. Aim at INR 2.0-3.0. Assessment & Plan (12/08/2020 2:19 PM EDT): Continue Coumadin as prescribed and follow closely with anticoagulation services. Aim at INR 2.0-3.0. Assessment & Plan (11/08/2020 7:23 AM EDT): Continue Coumadin as prescribed and follow closely with anticoagulation services. Aim at INR 2.0-3.0. Assessment & Plan (08/17/2020 11:32 PM EDT): Continue Coumadin as prescribed and follow closely with anticoagulation services. Aim at INR 2.0-3.0. Assessment & Plan (05/17/2020 8:42 PM EST): Continue Coumadin as prescribed and follow closely with anticoagulation services. Aim at INR 2.0-3.0. Assessment & Plan (03/08/2020 9:58 PM EST): Continue Coumadin as prescribed and follow closely with anticoagulation services. Aim at INR 2.0-3.0. Acute cystitis 12/02/2019 Assessment & Plan (12/04/2019 10:24 PM EDT): Continue proper hydration and complete prescribed course of doxycycline in addition to taking cranberry tabs. Trochanteric bursitis of right hip 12/02/2019 Assessment & Plan (12/04/2019 10:26 PM EDT): Use topical cream such as Arnica, Biofreeze, Aspercreme versus medicated patches such as salonpas, icy hot patch 2-3 times daily and if necessary at bedtime x 3 weeks. Gentle, regular exercise routine as educated by PT. Avoid falls, injuries, overuse. If no improvement with above measures consider local steroid injection. Pain in thoracic spine 09/16/2019 Assessment & Plan (09/16/2019 5:03 PM EDT): In view of sudden severe back pain of 3 days preventing her from moving or walking and long-term prednisone therapy I worry about compression fracture therefore I requested urgent thoracic spine x-rays. Acute right-sided low back pain without sciatica 09/16/2019 Assessment & Plan (09/16/2019 5:03 PM EDT): Because of underlying systemic lupus erythematosus, longstanding prednisone therapy and sudden onset of severe low back pain mostly on the right side preventing patient from weightbearing and even sitting I am warning about possible compression fracture therefore I requested urgent lumbar spine x-rays. 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 Close follow-up with treating physician as scheduled. Continue regular blood glucose checkups at least twice daily. Assessment & Plan (01/11/2019 1:30 PM EDT): Currently requiring insulin therapy due to recent several bouts of increased prednisone dosing for escalating pulmonary inflammation. Close follow-up with treating physician as scheduled. Continue regular blood glucose checkups at least twice daily. Aspirin long-term use 10/29/2018 Assessment & Plan (10/28/2024 1:10 PM EDT): Avoid falls, injuries and cuts. Monitor for excessive bruising and bleeding. Assessment & Plan (06/25/2024 12:54 PM EST): Avoid falls, injuries and cuts. Monitor for excessive bruising and bleeding. Assessment & Plan (11/14/2023 10:35 AM EDT): Avoid falls, injuries and cuts. Monitor for excessive bruising and bleeding. Assessment & Plan (07/27/2021 2:44 PM EDT): Avoid falls, injuries and cuts. Monitor for excessive bruising and bleeding. Assessment & Plan (12/08/2020 2:19 PM EDT): Avoid falls, injuries and cuts. Monitor for excessive bruising and bleeding. Assessment & Plan (11/08/2020 7:23 AM EDT): Avoid falls, injuries and cuts. Monitor for excessive bruising and bleeding. Assessment & Plan (08/17/2020 11:10 AM EDT): Avoid falls, injuries and cuts. Monitor for excessive bruising and bleeding. Assessment & Plan (05/16/2020 2:18 PM EST): Avoid falls, injuries and cuts. Monitor for excessive bruising and bleeding. Assessment & Plan (03/07/2020 2:17 PM EST): Avoid falls, injuries and cuts. Monitor for excessive bruising and bleeding. Assessment & Plan (12/04/2019 10:27 PM EDT): Avoid falls, injuries and cuts. Monitor for excessive bruising and bleeding. Assessment & Plan (09/16/2019 5:05 PM EDT): Avoid falls, injuries and cuts. Monitor for excessive bruising and bleeding. Assessment & Plan (07/08/2019 4:22 PM EST): Avoid falls, injuries and cuts. Monitor for excessive bruising and bleeding. Assessment & Plan (03/06/2019 9:09 AM EDT): Avoid falls, injuries and cuts. Monitor for excessive bruising and bleeding. Assessment & Plan (01/11/2019 1:33 PM EDT): Avoid falls, injuries and cuts. Monitor for excessive bruising and bleeding. Assessment & Plan (11/02/2018 8:12 PM EDT): Avoid falls, injuries and cuts. Monitor for excessive bruising and bleeding. Thrush 05/22/2018 Assessment & Plan (07/17/2019 6:10 PM EDT): In addition to intermittent swish and swallow nystatin I have asked her to provide daily plain [place] yogurt or kefir Bronchiectasis without complication 05/22/2018 Assessment & Plan (03/26/2022 11:28 AM EST): Clinically quiescent. Continue to monitor without additional intervention at this time. Assessment & Plan (12/18/2021 11:57 AM EDT): Stable, continue to monitor clinically. Assessment & Plan (09/12/2021 2:47 PM EDT): I wonder whether bronchiectasis or tracheobronchomalacia may be playing a role in her symptoms. I will see her back in 3 months and will consider bronchoscopy depending on findings from her GI work-up, as I also suspect a significant GI pathology leading to recurrent microaspiration. Assessment & Plan (06/15/2021 11:28 AM EST): Clinically quiescent. She has an Acapella device at home which she uses as needed. Continue to monitor without intervention at this time. Radiographically, this is relatively mild. Assessment & Plan (03/13/2021 3:37 PM EST): Clinically quiescent, and quite mild on her chest CT scan from 2015. I will try to obtain more recent chest CT scans from [facility]. Assessment & Plan (12/09/2020 3:44 PM EDT): She has a chronic cough which I suspect is more from bronchiectasis than from chronic asthmatic bronchitis. I have asked my office staff to obtain all chest CT scans (images and report) from both [facility] and [facility]. Once this date has been reviewed, based on her clinical course over the next 3 months, we could consider whether to restart her on Mucomyst nebs, HyperSal nebs (though she tells me these were not covered in the past), and/or airway clearance devices such as Acapella, Aerobika, and pulmonary clearance chest percussion vest. Consider sputum analysis if she suffers from a bronchiectasis exacerbation in the future. Injury of right knee 01/02/2018 On Cellcept therapy 09/11/2017 Assessment & Plan (10/28/2024 1:10 PM EDT): Take exactly as prescribed-we are reducing dose from 1000 mg every morning and additional 500 mg every afternoon alternating dosing with 1 tablet twice daily every other day in view of multiple infections within the last several months including bilateral pneumonia, esophageal thrush, oral thrush, C. difficile and norovirus infections. Keep well-hydrated. Avoid sick contacts. Monitor for increasing nausea, diarrhea, skin rashes etc. Return for regular lab work at least once every 2-3 months Assessment & Plan (06/25/2024 12:53 PM EST): Take exactly as prescribed-we are reducing dose from 1000 mg every morning and additional 500 mg every afternoon alternating dosing with 1 tablet twice daily every other day in view of multiple infections within the last several months including bilateral pneumonia, esophageal thrush, oral thrush, C. difficile and norovirus infections. Keep well-hydrated. Avoid sick contacts. Monitor for increasing nausea, diarrhea, skin rashes etc. Return for regular lab work at least once every 2-3 months Assessment & Plan (02/20/2024 12:51 PM EDT): Take exactly as prescribed-we are reducing dose from 1000 mg every morning and additional 500 mg every afternoon alternating dosing with 1 tablet twice daily every other day in view of multiple infections within the last several months including bilateral pneumonia, esophageal thrush, oral thrush, C. difficile and norovirus infections. Keep well-hydrated. Avoid sick contacts. Monitor for increasing nausea, diarrhea, skin rashes etc. Return for regular lab work at least once every 2-3 months Assessment & Plan (11/14/2023 10:34 AM EDT): Take exactly as prescribed-we are reducing dose from 1000 mg every morning and additional 500 mg every afternoon alternating dosing with 1 tablet twice daily every other day in view of multiple infections within the last several months including bilateral pneumonia, esophageal thrush, oral thrush, C. difficile and norovirus infections. Keep well-hydrated. Avoid sick contacts. Monitor for increasing nausea, diarrhea, skin rashes etc. Return for regular lab work at least once every 2-3 months Assessment & Plan (08/08/2023 10:35 PM EDT): Take exactly as prescribed-we are reducing dose from 1000 mg every morning and additional 500 mg every afternoon alternating dosing with 1 tablet twice daily every other day in view of multiple infections within the last several months including bilateral pneumonia, esophageal thrush, oral thrush, C. difficile and norovirus infections. Keep well-hydrated. Avoid sick contacts. Monitor for increasing nausea, diarrhea, skin rashes etc. Return for regular lab work at least once every 2-3 months Assessment & Plan (10/09/2022 10:10 AM EDT): Take exactly as prescribed-we are reducing dose from 1000 mg twice daily to 1000 mg every morning and additional 500 mg every afternoon in view of multiple infections within the last several months including bilateral pneumonia, esophageal thrush, oral thrush, C. difficile and norovirus infections. Keep well-hydrated. Avoid sick contacts. Monitor for increasing nausea, diarrhea, skin rashes etc. Return for regular lab work at least once every 2-3 months Assessment & Plan (05/29/2022 4:00 PM EST): Take exactly as prescribed-we are reducing dose from 1500 mg twice daily to 1000 mg twice daily in view of multiple infections within the last several months including bilateral pneumonia, esophageal thrush, oral thrush, C. difficile and norovirus infections. Keep well-hydrated. Avoid sick contacts. Monitor for increasing nausea, diarrhea, skin rashes etc. Return for regular lab work at least once every 2-3 months Assessment & Plan (10/27/2021 12:19 PM EDT): Take exactly as prescribed. Keep well-hydrated. Avoid sick contacts. Monitor for increasing nausea, diarrhea, skin rashes etc. Return for regular lab work at least once every 2 months Assessment & Plan (07/27/2021 2:46 PM EDT): Take exactly as prescribed. Keep well-hydrated. Avoid sick contacts. Monitor for increasing nausea, diarrhea, skin rashes etc. Return for regular lab work at least once every 2 months Assessment & Plan (12/08/2020 2:18 PM EDT): Take exactly as prescribed. Keep well-hydrated. Avoid sick contacts. Monitor for increasing nausea, diarrhea, skin rashes etc. Return for regular lab work at least once every 2 months Assessment & Plan (11/08/2020 7:23 AM EDT): Take exactly as prescribed. Keep well-hydrated. Avoid sick contacts. Monitor for increasing nausea, diarrhea, skin rashes etc. Return for regular lab work at least once every 2 months Assessment & Plan (08/17/2020 11:09 AM EDT): Take exactly as prescribed. Keep well-hydrated. Avoid sick contacts. Monitor for increasing nausea, diarrhea, skin rashes etc. Return for regular lab work at least once every 2 months Assessment & Plan (05/16/2020 2:17 PM EST): Take exactly as prescribed. Keep well-hydrated. Avoid sick contacts. Monitor for increasing nausea, diarrhea, skin rashes etc. Return for regular lab work at least once every 2 months Assessment & Plan (03/07/2020 2:16 PM EST): Take exactly as prescribed. Keep well-hydrated. Avoid sick contacts. Monitor for increasing nausea, diarrhea, skin rashes etc. Return for regular lab work at least once every 2 months Assessment & Plan (12/02/2019 10:53 AM EDT): Take exactly as prescribed. Keep well-hydrated. Avoid sick contacts. Monitor for increasing nausea, diarrhea, skin rashes etc. Return for regular lab work at least once every 2 months Assessment & Plan (09/16/2019 5:04 PM EDT): Take exactly as prescribed. Keep well-hydrated. Avoid sick contacts. Monitor for increasing nausea, diarrhea, skin rashes etc. Return for regular lab work at least once every 2 months Assessment & Plan (07/08/2019 4:23 PM EST): Take exactly as prescribed. Keep well-hydrated. Avoid sick contacts. Monitor for increasing nausea, diarrhea, skin rashes etc. Return for regular lab work at least once every 2 months Assessment & Plan (03/06/2019 9:10 AM EDT): Take exactly as prescribed. Keep well-hydrated. Avoid sick contacts. Monitor for increasing nausea, diarrhea, skin rashes etc. Return for regular lab work at least once every 2 months Assessment & Plan (01/11/2019 1:33 PM EDT): Take exactly as prescribed. Keep well-hydrated. Avoid sick contacts. Monitor for increasing nausea, diarrhea, skin rashes etc. Return for regular lab work at least once every 2 months Assessment & Plan (11/02/2018 8:11 PM EDT): Take exactly as prescribed. Keep well-hydrated. Avoid sick contacts. Monitor for increasing nausea, diarrhea, skin rashes etc. Return for regular lab work at least once every 2 months Assessment & Plan (08/31/2018 7:02 PM EDT): Take exactly as prescribed. Keep well-hydrated. Avoid sick contacts. Monitor for increasing nausea, diarrhea, skin rashes etc. Return for regular lab work at least once every 2 months Pain of right thumb 09/11/2017 Severe persistent asthma without complication Assessment & Plan (09/25/2022 11:55 AM EDT): Asthma symptoms have remained remarkably well controlled on high-dose Trelegy, Singulair and Dupixent, which we will continue. We will repeat PFT in March at an annual interval and reconvene thereafter. Assessment & Plan (03/26/2022 11:27 AM EST): Currently well controlled on high-dose Trelegy, Singulair and Dupixent which we will continue (Dupixent per Dr. Magaña). We will reconvene in 6 months for clinical follow-up, and consider repeat PFT next fall at an annual interval. Assessment & Plan (12/18/2021 11:57 AM EDT): We will continue high-dose Trelegy as well as Dupixent (from Dr. Magaña). We will repeat PFT prior to her next visit here in 3 months. Thankfully, she has been able to remain off prednisone since June. Assessment & Plan (09/12/2021 2:46 PM EDT): She has a persistent harsh cough, but her obstructive airways disease appears to be relatively well controlled on high-dose Trelegy. I do not believe she warrants prednisone at this time. She has been ordered for repeat PFT to be scheduled in February. Assessment & Plan (06/15/2021 11:27 AM EST): Doing remarkably well currently. She managed to come off prednisone 10 days ago. Unfortunately, her arthritis is flaring up, and she will plan to discuss this with her assistance representative next week; she remains on CellCept for this. I agree with Dr. Magaña, would consider rechecking a CBC with differential to monitor eosinophil count in weeks to come now that she is off prednisone. In terms of maintenance inhalers, we will initiate high-dose Breo and discontinue Brovana and budesonide nebs. A 2-week sample of Breo 200-25 mcg was provided to the patient today. She remains on Dupixent, which is likely helping with her asthma control. She also remains on Singulair. We will reconvene in 3 months for clinical follow-up and plan to repeat annual PFT in February. She is fully vaccine against COVID-19 (Pfizer x3, including booster) as well as influenza this season. Assessment & Plan (03/13/2021 3:37 PM EST): Given clinical stability, we agreed to try to come off Spiriva Respimat. She will continue Brovana and budesonide nebs. I advised that even though there is no robust data to suggest that they could be safely mixed, though based on clinical use it seems that this would likely be okay. She understands the potential risk associated with this, but is interested in trying to mix Brovana and budesonide nebs twice daily. We also agreed to try to cut back on her prednisone. I prescribed 1 mg tablets and she will try to cut back by 1 mg every month or so. I reviewed with her the potential signs and symptoms associated with relative adrenal sufficiency, which is a risk as she has been on prednisone since 2013. She is fully vaccinated against COVID-19 and influenza this fall. Assessment & Plan (12/09/2020 3:43 PM EDT): Her insurance plan is Medicare, and she is already in the donut hole . While I would love to try her on high-dose Trelegy or Breztri, the more reasonable approach, at least from a financial standpoint, is likely to continue Spiriva HandiHaler, budesonide (neb or handheld), and Brovana (arformoterol). We will obtain repeat PFT since her last study was performed just under a year ago. She was intolerant of Fasenra, therefore I agree that Dupixent is a reasonable option at this time. This is being prescribed by Dr. Magaña. She is fully vaccinated against COVID-19. Paroxysmal atrial fibrillation 07/25/2017 Assessment & Plan (09/16/2019 5:01 PM EDT): Close follow-up with treating blender snuff. Continue lifelong anticoagulation Coumadin as instructed by anticoagulation services She was advised to stop Multaq (dronedarone) Assessment & Plan (07/17/2019 6:08 PM EDT): Close follow-up with treating blender snuff. Continue lifelong anticoagulation Coumadin as instructed by anticoagulation services She was advised to stop Multaq (dronedarone) Assessment & Plan (03/06/2019 9:11 AM EDT): Close follow-up with treating blender snuff. Continue lifelong anticoagulation Coumadin as instructed by anticoagulation services (usually 10 mg Coumadin daily) She was recently advised to stop Multaq (dronedarone) Assessment & Plan (01/11/2019 1:28 PM EDT): Close follow-up with treating blender snuff. Continue lifelong anticoagulation Coumadin as instructed by anticoagulation services (usually 10 mg Coumadin daily) She was recently advised to stop Multaq (dronedarone) Assessment & Plan (11/02/2018 8:13 PM EDT): Close follow-up with treating blender snuff. Continue lifelong anticoagulation Coumadin as instructed by anticoagulation services (usually 10 mg Coumadin daily) Systemic lupus erythematosus 03/27/2017 Assessment & Plan (10/28/2024 1:10 PM EDT): Clinically and laboratory saavedra stable on current regimen. Carefully continue CellCept 500 mg alternating dosing 2 tablets every other morning and 1 tablet in the afternoon alternating with 1 tablets twice daily every other day Call if problems or questions and get monitoring labs in 4 months-standing orders in epic. Keep well-hydrated. Daily sun protection. Avoid sick contacts, falls and injuries Regular, gentle exercise routine. Adhere to age-appropriate screenings and preventive strategies. Assessment & Plan (06/25/2024 1:25 PM EST): Clinically and laboratory saavedra stable on current regimen. Carefully continue CellCept 500 mg alternating dosing 2 tablets every other morning and 1 tablet in the afternoon alternating with 1 tablets twice daily every other day Call if problems or questions and get monitoring labs in 4 months-standing orders in epic. Keep well-hydrated. Daily sun protection. Avoid sick contacts, falls and injuries Regular, gentle exercise routine. Adhere to age-appropriate screenings and preventive strategies. Assessment & Plan (03/10/2024 8:54 PM EST): Clinically and laboratory saavedra stable on current regimen. Carefully decrease CellCept from 1000 mg in the morning and 500 mg in the afternoon to alternating dosing 2 tablets every morning and 1 tablet in the afternoon alternating with 1 tablets twice daily every other day in view of recurrent infections including esophageal thrush, C. difficile, norovirus and pneumonia within the last several months. Call if problems or questions and get monitoring labs in 4 months-standing orders in [facility]. Keep well-hydrated. Daily sun protection. Avoid sick contacts, falls and injuries Regular, gentle exercise routine. Adhere to age-appropriate screenings and preventive strategies. Assessment & Plan (11/14/2023 10:34 AM EDT): Get monitoring blood tests prior to next visit in 12 wks-standing orders in [facility]. Carefully decrease CellCept from 1000 mg in the morning and 500 mg in the afternoon to alternating dosing 2 tablets every morning and 1 tablet in the afternoon alternating with 1 tablets twice daily every other day in view of recurrent infections including esophageal thrush, C. difficile, norovirus and pneumonia within the last several months. Call if problems or questions and get monitoring labs in 2 months-standing orders in [facility]. Keep well-hydrated. Daily sun protection. Avoid sick contacts, falls and injuries Regular, gentle exercise routine. Adhere to age-appropriate screenings and preventive strategies. Call with questions or problems. Assessment & Plan (08/08/2023 10:34 PM EDT): Get monitoring blood tests prior to next visit in 12 wks-standing orders in [facility]. Carefully decrease CellCept from 1000 mg in the morning and 500 mg in the afternoon to alternating dosing 2 tablets every morning and 1 tablet in the afternoon alternating with 1 tablets twice daily every other day in view of recurrent infections including esophageal thrush, C. difficile, norovirus and pneumonia within the last several months. Call if problems or questions and get monitoring labs in 2 months-standing orders in [facility]. Keep well-hydrated. Daily sun protection. Avoid sick contacts, falls and injuries Regular, gentle exercise routine. Adhere to age-appropriate screenings and preventive strategies. Call with questions or problems. Assessment & Plan (10/09/2022 10:06 AM EDT): Get monitoring blood tests prior to next visit in 12 wks-standing orders in [facility]. Carefully decrease CellCept from 1000 mg twice daily to 1000 mg in the morning and 500 mg in the afternoon in view of recurrent infections including esophageal thrush, C. difficile, norovirus and pneumonia within the last several months. Keep well-hydrated. Daily sun protection. Avoid sick contacts, falls and injuries Regular, gentle exercise routine. Adhere to age-appropriate screenings and preventive strategies. Call with questions or problems. Assessment & Plan (05/29/2022 3:56 PM EST): Get monitoring blood tests prior to next visit in 16 wks-standing orders in [facility]. Carefully decrease CellCept from 1500 mg twice daily to 1000 mg twice daily in view of recurrent infections including esophageal thrush, C. difficile, norovirus and pneumonia within the last several months. Keep well-hydrated. Daily sun protection. Avoid sick contacts Regular, gentle exercise routine. Call with questions or problems. Assessment & Plan (10/27/2021 12:15 PM EDT): Get monitoring blood tests today and prior to next visit in 12 wks-standing orders in [facility]. Carefully continue CellCept as prescribed. Keep well-hydrated. Daily sun protection. Avoid sick contacts Regular, gentle exercise routine. Call with questions or problems. Assessment & Plan (08/01/2021 5:56 PM EDT): Get monitoring blood tests today and prior to next visit in 12 wks-standing orders in [facility]. Carefully continue CellCept as prescribed. Keep well-hydrated. Daily sun protection. Avoid sick contacts Regular, gentle exercise routine. Call with questions or problems. Assessment & Plan (12/08/2020 2:18 PM EDT): Get monitoring blood tests prior to next visit in 6 wks-standing orders in [facility]. Carefully continue prednisone and CellCept as prescribed. Keep well-hydrated. Daily sun protection. Avoid sick contacts Regular, gentle exercise routine. Call with questions or problems. Assessment & Plan (11/08/2020 7:19 AM EDT): Get monitoring blood tests prior to next visit in 6 wks-standing orders in [facility]. Carefully continue prednisone and CellCept as prescribed. Keep well-hydrated. Daily sun protection. Avoid sick contacts Regular, gentle exercise routine. Call with questions or problems. Assessment & Plan (08/17/2020 11:29 PM EDT): Check labs from last weeks blood draw once available. Get monitoring blood tests prior to next visit in 2 months-standing orders in [facility]. Carefully continue CellCept as prescribed. Keep well-hydrated. Daily sun protection. Avoid sick contacts Regular, gentle exercise routine. Call with questions or problems. Assessment & Plan (05/16/2020 2:16 PM EST): Most recent labs show no underlying systemic lupus erythematosus flare. Carefully continue CellCept as prescribed. Keep well-hydrated. Daily sun protection. Avoid sick contacts Regular, gentle exercise routine. Call with questions or problems. Assessment & Plan (03/07/2020 2:15 PM EST): Most recent labs show no underlying systemic lupus erythematosus flare. Carefully continue CellCept as prescribed. Keep well-hydrated. Daily sun protection. Avoid sick contacts Regular, gentle exercise routine. Call with questions or problems. Assessment & Plan (12/04/2019 10:22 PM EDT): Most recent labs show no underlying systemic lupus erythematosus flare. Carefully continue CellCept as prescribed. Keep well-hydrated. Daily sun protection. Avoid sick contacts Regular, gentle exercise routine. Call with questions or problems. Assessment & Plan (09/16/2019 5:24 PM EDT): Get the labs monitoring safety and efficacy of therapy today when getting x-rays of her thoracic and lumbar spine to make sure that she does not have compression fractures due to long-term prednisone therapy and sudden very severe, debilitating back pain. Labs will help us assure there is no underlying systemic lupus erythematosus flare. For pain control she is advised to take Tylenol 650-1000 mg every 8-12 hours as needed until we find out the cause of her back pain to address it more causatively rather than prescribe narcotic pain medication in her delicate pulmonary, neurologic, gastrointestinal systems condition. Carefully continue CellCept as prescribed. Keep well-hydrated. Daily sun protection. Avoid sick contacts Regular, gentle exercise routine. Call with questions or problems. Assessment & Plan (07/08/2019 4:21 PM EST): Get the labs monitoring safety and efficacy of therapy prior to next visit. Carefully continue CellCept as prescribed. Keep well-hydrated. Daily sun protection. Avoid sick contacts Regular, gentle exercise routine. Call with questions or problems. Assessment & Plan (03/17/2019 10:11 PM EST): Get the labs monitoring safety and efficacy of therapy prior to next visit. Carefully continue CellCept as prescribed. Keep well-hydrated. Daily sun protection. Avoid sick contacts Regular, gentle exercise routine. Call with questions or problems. Assessment & Plan (01/11/2019 1:31 PM EDT): Get the labs monitoring safety and efficacy of therapy prior to next visit. Carefully continue CellCept as prescribed. Keep well-hydrated. Daily sun protection. Avoid sick contacts Regular, gentle exercise routine. Call with questions or problems. I will discuss further therapy plans with her treating missileman later today after bronchoscopy. Get yearly influenza vaccination by mid February 2019. Assessment & Plan (11/02/2018 8:07 PM EDT): Get the labs monitoring safety and efficacy of therapy prior to next visit. Carefully continue CellCept as prescribed. Keep well-hydrated. Daily sun protection. Avoid sick contacts Regular, gentle exercise routine. Call with questions or problems. Assessment & Plan (08/31/2018 6:55 PM EDT): Get the labs monitoring safety and efficacy of therapy within the next week or so. Carefully continue CellCept as prescribed. Keep well-hydrated. Daily sun protection. Avoid sick contacts Regular, gentle exercise routine. Call with questions or problems. Primary osteoarthritis involving multiple joints 03/27/2017 Assessment & Plan (10/28/2024 1:10 PM EDT): Joint protection, energy conservation. Avoid falls, injuries, overuse. Gentle, regular exercise routine. Warm packs prior to each exercise session and ice pack at the end of exercise session. Carefully continue topical Voltaren gel as needed. Work on reducing body weight as close as possible to ideal range for her height. Call if worse, ready for local steroid injection Assessment & Plan (06/25/2024 12:52 PM EST): Joint protection, energy conservation. Avoid falls, injuries, overuse. Gentle, regular exercise routine. Warm packs prior to each exercise session and ice pack at the end of exercise session. Carefully continue topical Voltaren gel as needed. Work on reducing body weight as close as possible to ideal range for her height. Call if worse, ready for local steroid injection Assessment & Plan (02/20/2024 12:50 PM EDT): Joint protection, energy conservation. Avoid falls, injuries, overuse. Gentle, regular exercise routine. Warm packs prior to each exercise session and ice pack at the end of exercise session. Carefully continue topical Voltaren gel as needed. Work on reducing body weight as close as possible to ideal range for her height. Call if worse, ready for local steroid injection Assessment & Plan (11/14/2023 10:34 AM EDT): Joint protection, energy conservation. Avoid falls, injuries, overuse. Gentle, regular exercise routine. Warm packs prior to each exercise session and ice pack at the end of exercise session. Carefully continue topical Voltaren gel as needed. Work on reducing body weight as close as possible to ideal range for her height. Call if worse, ready for local steroid injection Assessment & Plan (08/08/2023 9:51 AM EDT): Joint protection, energy conservation. Avoid falls, injuries, overuse. Gentle, regular exercise routine. Warm packs prior to each exercise session and ice pack at the end of exercise session. Carefully continue topical Voltaren gel as needed. Work on reducing body weight as close as possible to ideal range for her height. Call if worse, ready for local steroid injection Assessment & Plan (09/28/2022 11:43 AM EDT): Joint protection, energy conservation. Avoid falls, injuries, overuse. Gentle, regular exercise routine. Warm packs prior to each exercise session and ice pack at the end of exercise session. Carefully continue topical Voltaren gel as needed. Work on reducing body weight as close as possible to ideal range for her height. Call if worse, ready for local steroid injection Assessment & Plan (05/29/2022 3:56 PM EST): Joint protection, energy conservation. Avoid falls, injuries, overuse. Gentle, regular exercise routine. Warm packs prior to each exercise session and ice pack at the end of exercise session. Carefully continue topical Voltaren gel as needed. Work on reducing body weight as close as possible to ideal range for her height. Call if worse, ready for local steroid injection Assessment & Plan (10/27/2021 12:16 PM EDT): Joint protection, energy conservation. Avoid falls, injuries, overuse. Gentle, regular exercise routine. Warm packs prior to each exercise session and ice pack at the end of exercise session. Carefully continue topical Voltaren gel as needed. Work on reducing body weight as close as possible to ideal range for her height. Call if worse, ready for local steroid injection Assessment & Plan (07/27/2021 2:40 PM EDT): Joint protection, energy conservation. Avoid falls, injuries, overuse. Gentle, regular exercise routine. Warm packs prior to each exercise session and ice pack at the end of exercise session. Carefully continue topical Voltaren gel as needed. Work on reducing body weight as close as possible to ideal range for her height. Call if worse, ready for local steroid injection Assessment & Plan (12/08/2020 2:18 PM EDT): Joint protection, energy conservation. Avoid falls, injuries, overuse. Gentle, regular exercise routine. Warm packs prior to each exercise session and ice pack at the end of exercise session. Carefully continue topical Voltaren gel as needed. Work on reducing body weight as close as possible to ideal range for her height. Call if worse, ready for local steroid injection Assessment & Plan (11/08/2020 7:19 AM EDT): Joint protection, energy conservation. Avoid falls, injuries, overuse. Gentle, regular exercise routine. Warm packs prior to each exercise session and ice pack at the end of exercise session. Carefully continue topical Voltaren gel as needed. Work on reducing body weight as close as possible to ideal range for her height. Call if worse, ready for local steroid injection Assessment & Plan (08/17/2020 11:08 AM EDT): Joint protection, energy conservation. Avoid falls, injuries, overuse. Gentle, regular exercise routine. Warm packs prior to each exercise session and ice pack at the end of exercise session. Carefully continue topical Voltaren gel as needed. Work on reducing body weight as close as possible to ideal range for her height. Call if worse, ready for formal PT/OT or local steroid injection Assessment & Plan (05/16/2020 2:17 PM EST): Joint protection, energy conservation. Avoid falls, injuries, overuse. Gentle, regular exercise routine. Warm packs prior to each exercise session and ice pack at the end of exercise session. Carefully continue topical Voltaren gel as needed. Work on reducing body weight as close as possible to ideal range for her height. Call if worse, ready for formal PT/OT or local steroid injection Assessment & Plan (03/07/2020 2:16 PM EST): Joint protection, energy conservation. Avoid falls, injuries, overuse. Gentle, regular exercise routine. Warm packs prior to each exercise session and ice pack at the end of exercise session. Carefully continue topical Voltaren gel as needed. Work on reducing body weight as close as possible to ideal range for her height. Call if worse, ready for formal PT/OT or local steroid injection Assessment & Plan (12/04/2019 10:23 PM EDT): Joint protection, energy conservation. Avoid falls, injuries, overuse. Gentle, regular exercise routine. Warm packs prior to each exercise session and ice pack at the end of exercise session. Carefully continue topical Voltaren gel as needed. Work on reducing body weight as close as possible to ideal range for her height. Call if worse, ready for formal PT/OT or local steroid injection Assessment & Plan (07/08/2019 4:20 PM EST): Joint protection, energy conservation. Avoid falls, injuries, overuse. Gentle, regular exercise routine. Warm packs prior to each exercise session and ice pack at the end of exercise session. Carefully continue topical Voltaren gel as needed. Work on reducing body weight as close as possible to ideal range for her height. Call if worse, ready for formal PT/OT or local steroid injection Assessment & Plan (03/17/2019 10:08 PM EST): Joint protection, energy conservation. Avoid falls, injuries, overuse. Gentle, regular exercise routine. Warm packs prior to each exercise session and ice pack at the end of exercise session. Carefully continue topical Voltaren gel as needed. Work on reducing body weight as close as possible to ideal range for her height. Call if worse, ready for formal PT/OT or local steroid injection Assessment & Plan (01/11/2019 1:31 PM EDT): Joint protection, energy conservation. Avoid falls, injuries, overuse. Gentle, regular exercise routine. Warm packs prior to each exercise session and ice pack at the end of exercise session. Carefully continue topical Voltaren gel as needed. Work on reducing body weight as close as possible to ideal range for her height. Call if worse, ready for formal PT/OT or local steroid injection Assessment & Plan (11/02/2018 8:08 PM EDT): Joint protection, energy conservation. Avoid falls, injuries, overuse. Gentle, regular exercise routine. Warm packs prior to each exercise session and ice pack at the end of exercise session. Carefully continue topical Voltaren gel as needed. Work on reducing body weight as close as possible to ideal range for her height. Call if worse, ready for formal PT/OT or local steroid injection Assessment & Plan (08/31/2018 6:56 PM EDT): Joint protection, energy conservation. Avoid falls, injuries, overuse. Gentle, regular exercise routine. Warm packs prior to each exercise session and ice pack at the end of exercise session. Carefully continue topical Voltaren gel as needed. Work on reducing body weight as close as possible to ideal range for her height. Call if worse, ready for formal PT/OT or local steroid injection Sicca syndrome 03/27/2017 Assessment & Plan (10/28/2024 1:10 PM EDT): Keep well-hydrated. Avoid spicy and acidic foods. Diligent mouth hygiene. Regular ocular and dental checkups. Assessment & Plan (06/25/2024 12:52 PM EST): Keep well-hydrated. Avoid spicy and acidic foods. Diligent mouth hygiene. Regular ocular and dental checkups. Assessment & Plan (02/20/2024 12:50 PM EDT): Keep well-hydrated. Avoid spicy and acidic foods. Diligent mouth hygiene. Regular ocular and dental checkups. Assessment & Plan (11/14/2023 10:34 AM EDT): Keep well-hydrated. Avoid spicy and acidic foods. Diligent mouth hygiene. Regular ocular and dental checkups. Assessment & Plan (07/08/2019 4:23 PM EST): Keep well-hydrated. Avoid spicy and acidic foods. Diligent mouth hygiene. Regular ocular and dental checkups. Assessment & Plan (03/06/2019 9:11 AM EDT): Keep well-hydrated. Avoid spicy and acidic foods. Diligent mouth hygiene. Regular ocular and dental checkups. Assessment & Plan (01/11/2019 1:32 PM EDT): Keep well-hydrated. Avoid spicy and acidic foods. Diligent mouth hygiene. Regular ocular and dental checkups. Assessment & Plan (11/02/2018 8:08 PM EDT): Keep well-hydrated. Avoid spicy and acidic foods. Diligent mouth hygiene. Regular ocular and dental checkups. Assessment & Plan (08/31/2018 6:57 PM EDT): Keep well-hydrated. Avoid spicy and acidic foods. Diligent mouth hygiene. Regular ocular and dental checkups. Raynaud's disease without gangrene 03/27/2017 Assessment & Plan (11/22/2024 10:03 PM EDT): Keep warm, dress in layers. Optimize stress management strategies. Avoid vasoconstrictors in OTC products for cold/flu and sinus. Assessment & Plan (06/25/2024 12:52 PM EST): Keep warm, dress in layers. Optimize stress management strategies. Avoid vasoconstrictors in OTC products for cold/flu and sinus. Assessment & Plan (02/20/2024 12:50 PM EDT): Keep warm, dress in layers. Optimize stress management strategies. Avoid vasoconstrictors in OTC products for cold/flu and sinus. Assessment & Plan (11/14/2023 10:34 AM EDT): Keep warm, dress in layers. Optimize stress management strategies. Avoid vasoconstrictors in OTC products for cold/flu and sinus. Assessment & Plan (08/08/2023 9:51 AM EDT): Keep warm, dress in layers. Optimize stress management strategies. Avoid vasoconstrictors in OTC products for cold/flu and sinus. Assessment & Plan (09/28/2022 11:45 AM EDT): Keep warm, dress in layers. Optimize stress management strategies. Avoid vasoconstrictors in OTC products for cold/flu and sinus. Assessment & Plan (05/25/2022 11:26 AM EST): Keep warm, dress in layers. Optimize stress management strategies. Avoid vasoconstrictors in OTC products for cold/flu and sinus. Assessment & Plan (10/27/2021 12:19 PM EDT): Keep warm, dress in layers. Optimize stress management strategies. Avoid vasoconstrictors in OTC products for cold/flu and sinus. Assessment & Plan (07/27/2021 2:47 PM EDT): Keep warm, dress in layers. Optimize stress management strategies. Avoid vasoconstrictors in OTC products for cold/flu and sinus. Assessment & Plan (12/08/2020 2:18 PM EDT): Keep warm, dress in layers. Optimize stress management strategies. Avoid vasoconstrictors in OTC products for cold/flu and sinus. Assessment & Plan (11/08/2020 7:18 AM EDT): Keep warm, dress in layers. Optimize stress management strategies. Avoid vasoconstrictors in OTC products for cold/flu and sinus. Assessment & Plan (08/17/2020 11:09 AM EDT): Keep warm, dress in layers. Optimize stress management strategies. Avoid vasoconstrictors in OTC products for cold/flu and sinus. Assessment & Plan (03/07/2020 2:16 PM EST): Keep warm, dress in layers. Optimize stress management strategies. Avoid vasoconstrictors in OTC products for cold/flu and sinus. Assessment & Plan (12/02/2019 10:53 AM EDT): Keep warm, dress in layers. Optimize stress management strategies. Avoid vasoconstrictors in OTC products for cold/flu and sinus. Assessment & Plan (09/16/2019 5:00 PM EDT): Keep warm, dress in layers. Optimize stress management strategies. Avoid vasoconstrictors in OTC products for cold/flu and sinus. Assessment & Plan (07/08/2019 4:23 PM EST): Keep warm, dress in layers. Optimize stress management strategies. Avoid vasoconstrictors in OTC products for cold/flu and sinus. Assessment & Plan (03/06/2019 9:11 AM EDT): Keep warm, dress in layers. Optimize stress management strategies. Avoid vasoconstrictors in OTC products for cold/flu and sinus. Assessment & Plan (01/11/2019 1:26 PM EDT): Keep warm, dress in layers. Optimize stress management strategies. Avoid vasoconstrictors in OTC products for cold/flu and sinus. Assessment & Plan (11/02/2018 8:07 PM EDT): Keep warm, dress in layers. Optimize stress management strategies. Avoid vasoconstrictors in OTC products for cold/flu and sinus. Assessment & Plan (08/31/2018 6:54 PM EDT): Keep warm, dress in layers. Optimize stress management strategies. Avoid vasoconstrictors in OTC products for cold/flu and sinus. Fibromyalgia 03/27/2017 Assessment & Plan (10/28/2024 1:11 PM EDT): We discussed the diagnosis of fibromyalgia, its natural history, and treatment. Specifically, we discussed that treatment requires many interventions and recognition that we are often unable to get patients completely pain free. Management of fibromyalgia requires patient engagement to address any underlying depression, anxiety, or sleep disorder. Further, patients are encouraged to engage in regular physical activity. Some studies have suggested that Leonardo Chi is effective. Other physical activity may including water-based aerobics, swimming, walking, gentle yoga, biking, Pilates etc. In terms of pharmacotherapy, there are many options, including tricyclic antidepressants, duloxetine, gabapentin or pregabalin, and cyclobenzaprine as well as other similar medications to those listed. In this case, the patient might try to focus on nonpharmacologic measures since she is taking already multiple prescription medications for her multiple medical problems and is sensitive to medications. Regular warm pool exercise may provide additional benefit as well as using mindfulness approach as described in the book written by Dr Benedicto [facility] Assessment & Plan (06/25/2024 1:05 PM EST): We discussed the diagnosis of fibromyalgia, its natural history, and treatment. Specifically, we discussed that treatment requires many interventions and recognition that we are often unable to get patients completely pain free. Management of fibromyalgia requires patient engagement to address any underlying depression, anxiety, or sleep disorder. Further, patients are encouraged to engage in regular physical activity. Some studies have suggested that Leonardo Chi is effective. Other physical activity may including water-based aerobics, swimming, walking, gentle yoga, biking, Pilates etc. In terms of pharmacotherapy, there are many options, including tricyclic antidepressants, duloxetine, gabapentin or pregabalin, and cyclobenzaprine as well as other similar medications to those listed. In this case, the patient might try to focus on nonpharmacologic measures since she is taking already multiple prescription medications for her multiple medical problems and is sensitive to medications. Regular warm pool exercise may provide additional benefit as well as using mindfulness approach as described in the book written by Dr Benedicto [facility] Assessment & Plan (08/08/2023 9:51 AM EDT): We discussed the diagnosis of fibromyalgia, its natural history, and treatment. Specifically, we discussed that treatment requires many interventions and recognition that we are often unable to get patients completely pain free. Management of fibromyalgia requires patient engagement to address any underlying depression, anxiety, or sleep disorder. Further, patients are encouraged to engage in regular physical activity. Some studies have suggested that Leonardo Chi is effective. Other physical activity may including water-based aerobics, swimming, walking, gentle yoga, biking, Pilates etc. In terms of pharmacotherapy, there are many options, including tricyclic antidepressants, duloxetine, gabapentin or pregabalin, and cyclobenzaprine as well as other similar medications to those listed. In this case, the patient might try to focus on nonpharmacologic measures since she is taking already multiple prescription medications for her multiple medical problems and is sensitive to medications. Regular warm pool exercise may provide additional benefit as well as using mindfulness approach as described in the book written by Dr Benedicto Porter [facility] Assessment & Plan (10/09/2022 10:09 AM EDT): We discussed the diagnosis of fibromyalgia, its natural history, and treatment. Specifically, we discussed that treatment requires many interventions and recognition that we are often unable to get patients completely pain free. Management of fibromyalgia requires patient engagement to address any underlying depression, anxiety, or sleep disorder. Further, patients are encouraged to engage in regular physical activity. Some studies have suggested that Leonardo Chi is effective. Other physical activity may including water-based aerobics, swimming, walking, gentle yoga, biking, Pilates etc. In terms of pharmacotherapy, there are many options, including tricyclic antidepressants, duloxetine, gabapentin or pregabalin, and cyclobenzaprine as well as other similar medications to those listed. In this case, the patient might try to focus on nonpharmacologic measures since she is taking already multiple prescription medications for her multiple medical problems and is sensitive to medications. Regular warm pool exercise may provide additional benefit as well as using mindfulness approach as described in the book written by Dr Benedicto [facility] Assessment & Plan (10/27/2021 12:16 PM EDT): We reviewed the diagnosis of fibromyalgia, its natural history, and treatment. Specifically, we discussed that treatment requires many interventions and recognition that we are often unable to get patients completely pain free. Management of fibromyalgia requires patient engagement to address any underlying depression, anxiety, or sleep disorder. Further, patients are encouraged to engage in regular physical activity. Some studies have suggested that Leonardo Chi is effective. Other physical activity may including water-based aerobics, regular walking, biking, gentle yoga etc. In terms of pharmacotherapy, there are many options, including tricyclic antidepressants, duloxetine, gabapentin or pregabalin, and cyclobenzaprine as well as other similar medications to those listed. In her case, she might try to improve nonpharmacologic measures since she is very sensitive to medications and prefers not to add any additional medications if possible. She may benefit from reading book written by Dr Benedicto ray addressing management strategies for patients with fibromyalgia utilizing mindfulness approach. Assessment & Plan (08/01/2021 5:57 PM EDT): We reviewed the diagnosis of fibromyalgia, its natural history, and treatment. Specifically, we discussed that treatment requires many interventions and recognition that we are often unable to get patients completely pain free. Management of fibromyalgia requires patient engagement to address any underlying depression, anxiety, or sleep disorder. Further, patients are encouraged to engage in regular physical activity. Some studies have suggested that Leonardo Chi is effective. Other physical activity may including water-based aerobics, regular walking, biking, gentle yoga etc. In terms of pharmacotherapy, there are many options, including tricyclic antidepressants, duloxetine, gabapentin or pregabalin, and cyclobenzaprine as well as other similar medications to those listed. In her case, she might try to improve nonpharmacologic measures since she is very sensitive to medications and prefers not to add any additional medications if possible. She may benefit from reading book written by Dr Benedicto ray addressing management strategies for patients with fibromyalgia utilizing mindfulness approach. Assessment & Plan (07/08/2019 4:22 PM EST): We reviewed the diagnosis of fibromyalgia, its natural history, and treatment. Specifically, we discussed that treatment requires many interventions and recognition that we are often unable to get patients completely pain free. Management of fibromyalgia requires patient engagement to address any underlying depression, anxiety, or sleep disorder. Further, patients are encouraged to engage in regular physical activity. Some studies have suggested that Leonardo Chi is effective. Other physical activity may including water-based aerobics, regular walking, biking, gentle yoga etc. In terms of pharmacotherapy, there are many options, including tricyclic antidepressants, duloxetine, gabapentin or pregabalin, and cyclobenzaprine as well as other similar medications to those listed. In her case, she might try to improve nonpharmacologic measures since she is very sensitive to medications and prefers not to add any additional medications if possible. She may benefit from reading book written by Dr Benedicto ray addressing management strategies for patients with fibromyalgia utilizing mindfulness approach. Assessment & Plan (03/06/2019 9:09 AM EDT): We reviewed the diagnosis of fibromyalgia, its natural history, and treatment. Specifically, we discussed that treatment requires many interventions and recognition that we are often unable to get patients completely pain free. Management of fibromyalgia requires patient engagement to address any underlying depression, anxiety, or sleep disorder. Further, patients are encouraged to engage in regular physical activity. Some studies have suggested that Leonardo Chi is effective. Other physical activity may including water-based aerobics, regular walking, biking, gentle yoga etc. In terms of pharmacotherapy, there are many options, including tricyclic antidepressants, duloxetine, gabapentin or pregabalin, and cyclobenzaprine as well as other similar medications to those listed. In her case, she might try to improve nonpharmacologic measures since she is very sensitive to medications and prefers not to add any additional medications if possible. She may benefit from reading book written by Dr Benedicto ray addressing management strategies for patients with fibromyalgia utilizing mindfulness approach. Assessment & Plan (01/11/2019 1:32 PM EDT): We reviewed the diagnosis of fibromyalgia, its natural history, and treatment. Specifically, we discussed that treatment requires many interventions and recognition that we are often unable to get patients completely pain free. Management of fibromyalgia requires patient engagement to address any underlying depression, anxiety, or sleep disorder. Further, patients are encouraged to engage in regular physical activity. Some studies have suggested that Leonardo Chi is effective. Other physical activity may including water-based aerobics, regular walking, biking, gentle yoga etc. In terms of pharmacotherapy, there are many options, including tricyclic antidepressants, duloxetine, gabapentin or pregabalin, and cyclobenzaprine as well as other similar medications to those listed. In her case, she might try to improve nonpharmacologic measures since she is very sensitive to medications and prefers not to add any additional medications if possible. She may benefit from reading book written by Dr Benedicto ray addressing management strategies for patients with fibromyalgia utilizing mindfulness approach. Assessment & Plan (11/02/2018 8:09 PM EDT): We reviewed the diagnosis of fibromyalgia, its natural history, and treatment. Specifically, we discussed that treatment requires many interventions and recognition that we are often unable to get patients completely pain free. Management of fibromyalgia requires patient engagement to address any underlying depression, anxiety, or sleep disorder. Further, patients are encouraged to engage in regular physical activity. Some studies have suggested that Leonardo Chi is effective. Other physical activity may including water-based aerobics, regular walking, biking, gentle yoga etc. In terms of pharmacotherapy, there are many options, including tricyclic antidepressants, duloxetine, gabapentin or pregabalin, and cyclobenzaprine as well as other similar medications to those listed. In her case, she might try to improve nonpharmacologic measures since she is very sensitive to medications and prefers not to add any additional medications if possible. She may benefit from reading book written by Dr Benedicto [facility] addressing management strategies for patients with fibromyalgia utilizing mindfulness approach. Assessment & Plan (08/31/2018 7:00 PM EDT): We reviewed the diagnosis of fibromyalgia, its natural history, and treatment. Specifically, we discussed that treatment requires many interventions and recognition that we are often unable to get patients completely pain free. Management of fibromyalgia requires patient engagement to address any underlying depression, anxiety, or sleep disorder. Further, patients are encouraged to engage in regular physical activity. Some studies have suggested that Leonardo Chi is effective. Other physical activity may including water-based aerobics, regular walking, biking, gentle yoga etc. In terms of pharmacotherapy, there are many options, including tricyclic antidepressants, duloxetine, gabapentin or pregabalin, and cyclobenzaprine as well as other similar medications to those listed. In this case, the patient might try to improve nonpharmacologic measures since she is very sensitive to medications and prefers not to add any additional medications if possible. She may benefit from reading book written by Dr Benedicto [facility] addressing management strategies for patients with fibromyalgia utilizing mindfulness approach. High risk medication use 03/27/2017 Hypogammaglobulinemia 03/27/2017 Assessment & Plan (11/22/2024 10:02 PM EDT): Close follow- up with Dr. Magaña as scheduled for monthly IVIG infusions Assessment & Plan (06/25/2024 12:53 PM EST): Close follow- up with Dr. Magaña as scheduled for monthly IVIG infusions -Next is due on 02/22/2024 Assessment & Plan (03/10/2024 8:55 PM EST): Close follow- up with Dr. Magaña as scheduled for monthly IVIG infusions -Next is due on 02/22/2024 Assessment & Plan (11/14/2023 10:34 AM EDT): Close follow- up with Dr. Magaña as scheduled for monthly IVIG infusions Assessment & Plan (08/08/2023 9:52 AM EDT): Close follow- up with Dr. Magaña as scheduled for monthly IVIG infusions Assessment & Plan (05/25/2022 11:25 AM EST): Close follow- up with Dr. Magaña as scheduled for monthly IVIG infusions Assessment & Plan (10/27/2021 12:17 PM EDT): Close follow- up with Dr. Magaña as scheduled for monthly IVIG infusions Assessment & Plan (07/27/2021 2:46 PM EDT): Close follow- up with Dr. Magaña as scheduled for monthly IVIG infusions Assessment & Plan (12/08/2020 2:19 PM EDT): Close follow- up with Dr. Magaña as scheduled for monthly IVIG infusions Assessment & Plan (11/08/2020 7:22 AM EDT): Close follow- up with Dr. Magaña as scheduled for monthly IVIG infusions Assessment & Plan (08/17/2020 11:10 AM EDT): Close follow- up with Dr. Magaña as scheduled for monthly IVIG infusions at 35 mg/kg Assessment & Plan (05/16/2020 2:18 PM EST): Close follow- up with Dr. Magaña as scheduled for monthly IVIG infusions at 35 mg/kg Assessment & Plan (03/08/2020 9:57 PM EST): Close follow- up with Dr. Magaña as scheduled for monthly IVIG infusions at 35 mg/kg Assessment & Plan (07/08/2019 4:22 PM EST): Close follow- up with Dr. Magaña as scheduled for monthly IVIG infusions next on 03/17/19 Assessment & Plan (03/06/2019 9:09 AM EDT): Close follow- up with Dr. Magaña as scheduled for monthly IVIG infusions next on 03/17/19 Assessment & Plan (01/11/2019 1:32 PM EDT): Close follow- up with Dr. Magaña as scheduled for monthly IVIG infusions once again approved by her insurance Assessment & Plan (11/02/2018 8:10 PM EDT): Close follow- up with Dr. Magaña as scheduled for monthly IVIG infusions once again approved by her insurance Assessment & Plan (08/31/2018 7:03 PM EDT): Close follow- up with Dr. Magaña as scheduled for monthly IVIG infusions Mouth sores 03/27/2017 Resolved Problems Problem Noted Date Diagnosed Date Resolved Date COVID-19 03/26/2022 09/25/2022 Overview (03/26/2022): Tested positive on 01/30/2022, treated with Paxlovid. Assessment & Plan (03/26/2022 11:28 AM EST): Subsequently required treatment with prednisone. Ultimately recovered back to baseline after few weeks. She was advised to pursue the Bi Valent booster approximately 3 months after infection, sometime in early May. Bilateral pneumonia 12/18/2021 03/26/20 Assessment & Plan (03/26/2022 11:10 AM EST): Clinically and radiographically resolved. No indication for ongoing follow-up at this time. Assessment & Plan (12/18/2021 11:56 AM EDT): Patient states she was diagnosed with bilateral pneumonia at [facility] in late October. I have asked my office staff to obtain records and imaging for review. She likely will require repeat chest imaging to document clearance. I suspect this is secondary to chronic microaspiration, as she describes to me today. She is followed closely by GI and undergoing work-up. Advice given about COVID-19 virus infection 07/27/2021 12/18/2021 Assessment & Plan (08/01/2021 5:59 PM EDT): Due to her chronic immunosuppressed state with severe lung disease and alpha 1 antitrypsin deficiency I am advising her to get 4th COVID-19 vaccine dose since she received 3rd dose in December 2020. Continue diligent personal protection and make sure to call for monoclonal antibody treatment in case she develops COVID-19 infection within the first 24-48 hours. Pancreatic insufficiency 03/27/2017 longterm current use of systemic steroids 03/27/2017 07/27/2021 Assessment & Plan (12/09/2020 3:46 PM EDT): We agreed that, as much as possible, we should try to wean her daily prednisone. She has been on this since 2013. Assessment & Plan (12/08/2020 2:19 PM EDT): Gently taper as tolerated. Daily calcium and vitamin D supplementation. Regular weightbearing exercises. Fall prevention strategies. Monitor for multiple side effects including but not limited to mood swings, increased intraocular and systemic pressure, diabetes, osteoporosis, fluid retention, increased appetite, risk of infection, bruising, hair thinning etc. Assessment & Plan (11/08/2020 7:22 AM EDT): Gently taper as tolerated. Daily calcium and vitamin D supplementation. Regular weightbearing exercises. Fall prevention strategies. Monitor for multiple side effects including but not limited to hips, knees, jaw osteonecrosis, mood swings, increased intraocular and systemic pressure, diabetes, osteoporosis, fluid retention, increased appetite, risk of infection, bruising, hair thinning etc. Assessment & Plan (08/17/2020 11:31 PM EDT): Gently taper as tolerated. Daily calcium and vitamin D supplementation. Regular weightbearing exercises. Fall prevention strategies. Monitor for multiple side effects including but not limited to hips, knees, jaw osteonecrosis, mood swings, increased intraocular and systemic pressure, diabetes, osteoporosis, fluid retention, increased appetite, risk of infection, bruising, hair thinning etc. Assessment & Plan (05/17/2020 8:42 PM EST): Gently taper as tolerated. Daily calcium and vitamin D supplementation. Regular weightbearing exercises. Fall prevention strategies. Monitor for multiple side effects including but not limited to osteonecrosis of hips or knees, mood swings, increased intraocular and systemic pressure, diabetes, osteoporosis, fluid retention, increased appetite, risk of infection, bruising, hair thinning etc. Assessment & Plan (03/07/2020 2:17 PM EST): Gently taper as tolerated. Daily calcium and vitamin D supplementation. Regular weightbearing exercises. Fall prevention strategies. Monitor for multiple side effects including but not limited to mood swings, increased intraocular and systemic pressure, diabetes, osteoporosis, fluid retention, increased appetite, risk of infection, bruising, hair thinning etc. Assessment & Plan (12/02/2019 10:54 AM EDT): Gently taper as tolerated. Daily calcium and vitamin D supplementation. Regular weightbearing exercises. Fall prevention strategies. Monitor for multiple side effects including but not limited to mood swings, increased intraocular and systemic pressure, diabetes, osteoporosis, fluid retention, increased appetite, risk of infection, bruising, hair thinning etc. Assessment & Plan (09/16/2019 5:04 PM EDT): Gently taper as tolerated when ready. Daily calcium and vitamin D supplementation. Regular weightbearing exercises. Fall prevention strategies. Monitor for multiple side effects including but not limited to mood swings, increased intraocular and systemic pressure, diabetes, osteoporosis, fluid retention, increased appetite, risk of infection, bruising, hair thinning etc. Assessment & Plan (07/17/2019 6:12 PM EDT): Daily calcium and vitamin D supplementation. Regular weightbearing exercises. Fall prevention strategies. Monitor for multiple side effects including but not limited to mood swings, increased intraocular and systemic pressure, diabetes, osteoporosis, hip and knee avascular necrosis (AVN), fluid retention, increased appetite, risk of infection, bruising, hair thinning etc. Assessment & Plan (03/06/2019 9:10 AM EDT): Daily calcium and vitamin D supplementation. Regular weightbearing exercises. Fall prevention strategies. Monitor for multiple side effects including but not limited to mood swings, increased intraocular and systemic pressure, diabetes, osteoporosis, fluid retention, increased appetite, risk of infection, bruising, hair thinning etc. Assessment & Plan (01/11/2019 1:33 PM EDT): Daily calcium and vitamin D supplementation. Regular weightbearing exercises. Fall prevention strategies. Monitor for multiple side effects including but not limited to mood swings, increased intraocular and systemic pressure, diabetes, osteoporosis, fluid retention, increased appetite, risk of infection, bruising, hair thinning etc. Assessment & Plan (11/02/2018 8:11 PM EDT): Daily calcium and vitamin D supplementation. Regular weightbearing exercises. Fall prevention strategies. Monitor for multiple side effects including but not limited to mood swings, increased intraocular and systemic pressure, diabetes, osteoporosis, fluid retention, increased appetite, risk of infection, bruising, hair thinning etc. Encounters Date Type Department Care Team Description 02/22/2025 Telephone [facility], Allergy [facility] Critical Care Medicine [address] [place] [address] [facility] 01/23/2025 Refill [facility] Rheumatology [address] [place] [address] [place] [address] Sybil Hernandez MD Medication Refill 12/17/2024 Refill [facility] Rheumatology [address] [place] [address] KlSybil Branham MD Medication Refill from Last 3 Months Immunizations Immunization Administration Dates Next Due INFLUENZA, SPLIT VIRUS, TRIVALENT W/ PRESERVATIV E IM 02/18/2014 Influenza High-Dose Quadrivalent Preservative Fr ee IM 01/13/2020 Influenza High-Dose Trivalent Preservative Free IM 01/10/2018 Influenza Quadrivalent Preservative Free IM 06/2016 Influenza Trivalent Adjuvanted Preservative free IM 02/19/2019 Pneumococcal conjugate PCV13 09/03/2017 Pneumococcal polysaccharide PPSV23 02/18/2014 Family History Medical History Relation Comments Diabetes Brother 1 Heart attack Brother 1 Heart disease Brother 2 No Known Problems Father No Known Problems Maternal Aunt Heart disease Maternal Grandfather No Known Problems Maternal Grandmother No Known Problems Maternal Uncle Diabetes Mother No Known Problems Paternal Aunt No Known Problems Paternal Grandfather No Known Problems Paternal Grandmother No Known Problems Paternal Uncle No Known Problems Sister Heart attack Unspecified Infl. arthritis Unspecified Cancer Neg Hx Clotting disorder Neg Hx Collagen disease Neg Hx Depression Neg Hx Dislocations Neg Hx Gout Neg Hx Osteoporosis Neg Hx Scoliosis Neg Hx Relation Status Comments Brother 1 Brother 2 Father Maternal Aunt Maternal Grandfather Maternal Grandmother Maternal Uncle Mother Paternal Aunt Paternal Grandfather Paternal Grandmother Paternal Uncle Sister Unspecified Social History Tobacco Use Types Packs/Day Years Used Date Smoking Tobacco: Never Smokeless Tobacco: Never Tobacco Cessation:Counseling Given: Not Answered Alcohol Use Standard Drinks/Week Comments Yes 1 [...] Sign Reading Time Taken Comments Blood Pressure 110/56 10/28/2024 12:59 PM EDT Pulse 83 06/25/2024 12:46 PM EST Temperature 36.7 C (98 F) 12/18/2021 11:09 AM EDT Respiratory Rate 16 05/25/2022 10:52 AM EST Oxygen Saturation 95% 06/25/2024 12:46 PM EST Inhaled Oxygen Concentration - - Weight 83.6 kg (184 lb 6.4 oz) 10/28/2024 12:59 PM EDT Height 165.1 cm (5' 5 ) 06/25/2024 12:46 PM EST Body Mass Index 30.69 06/25/2024 12:46 PM EST Plan of Treatment Upcoming Encounters Date Type Department Care Team (Late st Contact Info) Description 04/14/2025 1:00 PM EST Office Visit [facility] Rheumatology [address] [place] [address] Sybil Hernandez MD [address] [facility], [address] [place] [address] Health Maintenance Due Date Last Done Comments Adult Td,Tdap Booster 1950 LIPID PANEL 1949 TSH LEVEL 1949 COVID-19 VACCINE (#1) 1954 DEPRESSION SCREENING 1961 HEPATITIS C SCREENING 1967 HEPATITIS A VACCINES (1 of 2 - Risk 2-dose series) 1968 ZOSTER VACCINES (1 of 2) 1968 COLOGUARD 1994 COLONOSCOPY 1994 COLORECTAL CANCER SCREENING 1994 FIT TEST 1994 FOBT 1994 SIGMOIDOSCOPY 1994 VIRTUAL COLONOSCOPY 1994 PNEUMOCOCCAL VACCINES (50+ years) (3 of 3 - PCV20 or PCV21) 02/18/2019 09/03/2017, 02/18/2014 RSV VACCINE (1 - 1-dose 75+ series) 2024 INFLUENZA VACCINE (#1) 2024 , 02/19/2019, 01/10/2018, Additional history exists CREATININE LEVEL 10/21/2025 10/21/2024, , 02/12/2024, Additional history exists OSTEOPOROSIS SCREENING INITIAL (ONE-TIME) Completed 08/08/2023 SMOKING STATUS SCREENING (Once After 26 Yrs) Completed 10/28/2024 HIB VACCINES Aged Out No longer eligi ble based on patient's age to complete this topic IPV VACCINES Aged Out No longer eligi ble based on patient's age to complete this topic MENINGOCOCCAL VACCINES (ACWY) Aged Out No longer eligible based on patient's age to complete this topic MENINGOCOCCAL VACCINES (B) Aged Out N o longer eligible based on patient's age to complete this topic Medical Devices Implanted Type Area Tax Consultant Device Identifier Shelf Expiration Date Model / Serial / Lot Clip-08/08/2007 Implanted:2007 (Quantity not on file) Clip Description:titmium clip Procedures Procedure Name Priority Date/Time Associated Diagnosis Comments COMPREHENSIVE METABOLIC PANEL (CMP) Routine 10/21/2024 11:01 AM EDT 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 DXA SCREENING Routine 08/08/2023 9:49 AM EDT Other systemic lupus erythematosus with lung involvement from Last 3 Months or Most Recently Relevant to Health Maintenance Results * Comprehensive metabolic panel (10/21/2024 11:01 AM EDT) Blood us Sybil Hernandez MD LAB BLOOD BKR ORDERABLES Final Result EXTERNAL NON-INTERFACED REF LAB from Last 3 Months or Most Recently Relevant to Health Maintenance Insurance MEDICARE PART A & B [facility] MEDICARE SUPPLEMENT MEDICARE PART A & B [facility] MEDICARE SUPPLEMENT MEDICARE PART A & B MEDICARE PART A & B Member Subscriber Plan / Payer (Ef fective 2014-Present) Name:Shakila Hook Member ID:[id number] Relation to Subscriber:Self Name:Shakila Hook Subscriber ID:[id number] Payer ID:[id number] Group ID:Not on file Type:Medicare Address: [facility] [employer] [address] [place] [address] MEDICARE PART A & B [employer] MEDICARE SUPPLEMENT MEDICARE PART A & B MEDICARE PART A & B [employer] MEDICARE SUPPLEMENT [facility] Address: [place] [address] MEDICARE PART A & B Member Subscriber Plan / Payer (Ef fective 2014-Present) Name:Shakila Hook Member ID:[id number] Relation to Subscriber:Self Name:Shakila Hook Subscriber ID:[id number] Payer ID:[id number] Group ID:Not on file Type:Medicare Address: [facility] [address] [place] [address] [facility] MEDICARE SUPPLEMENT MEDICARE PART A & B [facility] MEDICARE SUPPLEMENT Care Teams State Game Protector Relationship Specialty Start Date End Date Mariel Mcgarry MD [address] [place] [address] [place] [address] PCP - General 02/21/17 Mariel Mcgarry MD [address] [place] [address] [place] [address] Historical LMR Provider 02/23/17 Sybil Hernandez MD [address] [place] [address], [address] [place] [address] [email or web address] Historical LMR Provider 02/23/17 Additional Source Comments The information contained in this document represents components of the legal health record. It is not the complete legal health record.[facility]
--- OUTSIDE RECORDS SUMMARY | 2025-03-18 09:45 | XMS_ITS | Encounter Summary ---
Author Organization [facility] Address [address] [place] [address] Phone Care Team Providers Care Central Office Repairer Name Role Phone Mariel Mcgarry MD Primary Care Prov ider Mariel Mcgarry MD Unavailable + Sybil Hernandez MD Unavailable [phone] Encounter Details Date Type Department Care Team (Late st Contact Info) Description 05/02/2023 Transcribe Orders [facility] P[facility] Lab [address] [place] [address] Wiliam De Los Santos MD, MS [address] [id number] [email or web address] Social History Tobacco Use Types Packs/Day Years [...] Description 04/14/2025 1:00 PM EST Office Visit [facility] [place] [address] Sybil Hernandez MD [address] [place] [id number] documented as of this encounter Visit Diagnoses Not on filedocumented in this encounter Care Teams Central Office Repairer Relationship Specialty Start Date End Date Mariel Mcgarry MD [address] [place] [address] Dr BARNES [address] [place] [id number] PCP - General 02/21/17 Mariel Mcgarry MD [address] [place] [address] Dr BARNES [address] [place] [id number] Historical LMR Provider 02/23/17 Sybil Hernandez MD [address] [place] [id number] Historical LMR Provider 02/23/17 documented as of this encounter Additional Source Comments The information contained in this document represents components of the legal health record. It is not the complete legal health record.[facility]
== END 2025-03-18 09:57 | disposition home or self-care (01) ==
LOC: HO.HUSH 09:00
PROVIDERS: PCP Internal Medicine Endocrinology, Diabetes & Metabolism; Visit Provider Urology
DX: N39.0 Urinary tract infection, site not specified (principal); N30.10 Interstitial cystitis (chronic) without hematuria
CPT/HCPCS: 99213; G2211

== ENCOUNTER → 2025-03-18 09:00 | Outpatient (BNVA) | payer OTHER, SELFPAY | PROVIDERS: PCP Internal Medicine Endocrinology, Diabetes & Metabolism; Visit Provider Urology | DX: N30.10 Interstitial cystitis (chronic) without hematuria (principal) | CPT/HCPCS: 51798 ==